=== PATIENT | female | born 1935 | race Caucasian/White ===

== ENCOUNTER 2019-07-19 20:08 | Inpatient (IN) | payer MEDICARE ==
[~2019-07-19] VITALS: Ht 167.6 cm; Wt 79.4 kg
[~2019-07-19 20:08] MED LIST: ALENDRONATE SOD70 MG PO; AMIODARONE HCL200 MG PO; ASPIR 8181 MG PO; BIOTIN PO; CALCIUM + VITA1 EACH PO; CALCIUM 500+D1 EACH PO; CO Q-10100 MG PO; HYDROCHLOROTHIA25 MG PO; KLOR CON PO; KLOR-CON 1010 MEQ PO; LISINOPRIL10 MG PO; LOVASTATIN20 MG PO; METOPROLOL SUCC25 MG PO; MULTI-VITAMIN1 EACH PO; OSTEO BI-FLEX1 EAC2 PO; VERAPAMIL ER120 MG PO; VIT C PO; VIT D3 PO; VIT E PO; VITAMIN C500 MG PO; VITAMIN D31000 UNIT PO; VITAMIN E400 UNI1 PO; XARELTO10 MG PO; ZESTRIL10 MG PO
--- OUTSIDE RECORDS SUMMARY | 2019-07-19 20:14 | XMS REPORT | Summary of Care ---
Author Author [facility] Organization [facility] Address Unknown Phone Unavailable Encounter HQ Encntr_alias(FIN) [id number] Date(s): 03/10/17 - 03/10/17 [facility] [address] [place] [address]- Discharge Disposition: Home or Self Care Attending Physician: Melva Coles MD Referring Physician: Melva Coles MD Vital Signs No data available for this section Problem List No data available for this section Allergies, Adverse Reactions, Alerts No data available for this section Medications No data available for this section Results No data available for this section Immunizations No data available for this section Procedures No data available for this section Social History No data available for this section Assessment and Plan No data available for this section
--- OUTSIDE RECORDS SUMMARY | 2019-07-19 20:14 | XMS REPORT | Summary of Care ---
Author Author [facility] [place] Organization [facility] [place] Address Unknown Phone Unavailable Encounter HQ Encntr_alias(FIN) [id number] Date(s): 01/02/16 - 01/02/16 [facility] [place] [address] [id number] [phone] Discharge Disposition: Home Attending Physician: Melva Coles MD Vital Signs No [...]
--- OUTSIDE RECORDS SUMMARY | 2019-07-19 20:14 | XMS REPORT | Summary of Care ---
Author Author [facility] [place] Organization [facility] [place] Address Unknown Phone Unavailable Encounter HQ Encntr_alias(FIN) [id number] Date(s): 02/23/17 - 02/23/[address] [facility] [place] [address] [place] [phone] Discharge Disposition: Home or Self Care Attending Physician: Melva Coles MD Vital Signs [...]
--- OUTSIDE RECORDS SUMMARY | 2019-07-19 20:14 | XMS REPORT | Summary of Care ---
Author Author [facility] Outpatient Imaging [facility]patient [facility] Address Unknown Phone Unavailable Encounter HQ Encntr_alias(FIN) [id number] Date(s): 01/02/16 - 01/02/16 [facility] Outpatient Imaging [facility] [address] [facility], [address] [phone] Discharge Disposition: Home Attending Physician: Melva Coles [...]
--- OUTSIDE RECORDS SUMMARY | 2019-07-19 20:14 | XMS REPORT | Continuity of Care Document ---
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 Phone CYBRA Information [employer] Unavailable Unavailable Problems Problem Status Onset Date Classification Date Reported Comments Source Radiculopathy, lumbar region 11/30/2018 06/11/2019 [facility] [place] Dorsalgia, unspecified 10/10/2018 04/22/2019 [facility] [place] DX: I48.91=UNSPECIFIED ATRIAL FIBRILLATI Active 03/01/2017 [facility] R10.12 - LEFT UPPER QUADRANT PAIN Active 12/26/2015 [facility] [employer] V82.81 - SCREEN - OSTEOP Active 12/24/2014 [facility] [place] Spinal stenosis, lumbar region with neurogenic claudication 06/11/2019 [facility] [place] Other intervertebral disc disorders, lumbosacral region 06/11/2019 [facility] [place] Pathological fracture, other site, initial encounter for fracture 06/11/2019 [facility] [place] Pain in right hip 04/22/2019 [facility] [place] Pain in left hip 04/22/2019 [facility] [place] Other spondylosis, lumbar region 04/22/2019 [facility] [place] UNSPECIFIED ATRIAL FIBRILLATION Active [facility] Medications No Data Provided for This Section Allergies, Adverse Reactions, Alerts No Known Medication Allergies Immunizations No Data Provided for This Section Results No Data Provided for This Section Pathology Reports No Data Provided for This Section Diagnostic Reports Report Value Date Source Spine lumbar w/wo contrast MRI EXAM: MRI LUMBAR SPINE WITHOUT AND WITH CONTRAST DATE: 11/21/2018 14:29 [employer] . ORDERING PHYSICIAN: Melva Coles MD CLINICAL INDICATION: BACK PAIN, RADICULOPATHY - BACK PAIN, RADICULOPATHY; TECHNIQUE: Multiplanar, multisequence MRI lumbar spine performed both prior to and after uncomplicated IV administration of weight based Dotarem. COMPARISON: Unavailable FINDINGS: INTRASPINAL CONTENTS/CONUS: The conus terminates at L1-L2. No definite dural based lesion. VERTEBRAE: The vertebrae are normal in height there is 15 degrees levoconvex curvature with apex at L2-L3. There are nondisplaced subacute fracture in the sacrum bilaterally. PARASPINAL SOFT TISSUES: No edema or definite masses. No aortic aneurysm. ENHANCEMENT: There is no abnormal enhancement DISC SPACES, SPINAL CANAL, AND NEURAL FORAMINA: T12-L1. Intervertebral disc height and signal are maintained. Posterior elements are normal. There is no stenosis. L1-L2. The disc is dehydrated without height loss. There is a central annular fissure. Posterior elements are normal. There is no stenosis. L2-L3. Dehydrated disc with shallow diffuse bulge and annular fissuring. There is bilateral facet hypertrophy. Central canal measures 12 mm the lateral recesses and neural foramina are patent. L3-L4. Loss of disc height with diffuse bulge and annular fissuring. There is bilateral facet hypertrophy with ligamentous redundancy. Central canal measures 9 mm. Disc narrows lateral recesses contacting the traversing L4 nerve roots. Disc and facets mildly narrow the neural foramina but cause no descending L3 nerve roots. L4-L5. Desiccated disc with circumferential disc osteophyte complex asymmetric to the right. There is bilateral facet hypertrophy with ligamentous redundancy. Central canal measures 7 mm without cauda equina mass effect. Disc and facets narrow the lateral recesses contacting the traversing L5 nerve bilaterally. Disc and facets moderately narrow the right neural foramen contacting the exiting L4 nerve root. Left neural foramen is mildly narrowed with no contact. L5-S1. Desiccated disc with circumferential disc osteophyte complex. There is bilateral facet hypertrophy with ligamentous redundancy. Central canal measures 11 mm the lateral recesses are mildly narrowed without traversing S1 nerve root mass effect. Disc and facets moderately narrow the right neural foramen contacting the exiting right L5 nerve. IMPRESSION: 1. Mild L3-L4 and L4-L5 spinal stenosis without mass effect on the cauda equina 2. Potential exiting nerve root impingement on the right at L4-L5 and L5-S1 3. Nondisplaced, subacute bilateral sacral insufficiency fractures, which are amenable to augmentation by interventional radiology. 11/21/2018 [facility] Hip bilat w pelvis and both lat hips DX Exam: Hip bilat w pelvis and both lat hips DX Reason for Exam: - pain lumbar area; back and hip pain Comparison Exam: None Discussion: No acute bony abnormalities identified. SI joints and pubic symphysis are unremarkable. Femoral acetabular joints are intact. No evidence for avascular necrosis involving the femoral heads. No suspicious osteoblastic or osteolytic lesions seen to suggest pathologic involvement. Impression: 1. No acute bony abnormalities identified. 10/02/2018 [facility] Spine lumbar series DX Exam: Spine lumbar series DX Reason for Exam: - pain lumbar area; back and hip pain Comparison Exam: None Discussion: 5 non rib-bearing lumbar vertebral bodies are seen. Vertebral body heights are maintained. No spondylolisthesis nor scoliosis. Moderate degenerative changes seen at the level of the lower lumbar spine. Moderate amount of atherosclerotic plaque seen within the abdominal aorta. No suspicious osteoblastic or osteolytic lesions. Note that a lumbar spine x-ray cannot rule out ligamentous injuries or spinal cord abnormalities. No dilated loops of bowel within the visualized portions of the abdomen and pelvis. Impression: 1. Vertebral body heights are maintained. No spondylolisthesis nor scoliosis. Moderate degenerative changes seen at the level of the lower lumbar spine. 10/02/2018 [facility] Stereo Breast BX Uni /Clip Primary SD MA - STEREO BREAST BX UNI /CLIP PRIMARY SD MA/L STEREOTACTIC GUIDED BIOPSY LEFT BREAST USING VACUUM DEVICE WITH MARKING DEVICE INSERTED AND POST DIGITAL MAMMOGRAPHIC IMAGING AND RADIOGRAPHIC SPECIMEN IMAGING- POST-PROCEDURE IMAGING FOR MARKER PLACEMENT: 03/10/2017 CLINICAL: Left Breast Calcifications. Correlation is made to exams dated: 02/23/2017 mammogram, 02/04/2017 mammogram, 01/02/2016 mammogram, 01/02/2015 mammogram - [facility], 12/24/2014 mammogram and 12/18/2013 mammogram - [facility]. A stereotactic guided biopsy was performed for the 4 cm area of clustered calcifications located in the left breast at 2 o'clock posterior depth. This was described on the previous mammography report. The skin was prepped in the usual manner. Local anesthetic was administered to the access site. A skin lucy was made in the breast. The abnormality was approached from the lateral aspect using an upright digital mammography unit. A 9 gauge biopsy needle was placed adjacent to the abnormality under computer guidance and confirmatory stereotactic mammography images were obtained to document needle placement. Once the needle was documented to be in the correct location, multiple specimens were obtained using the Wugly system. A clip was inserted into the biopsy cavity. A sterile dressing was applied to the access site. Post procedure digital mammographic imaging demonstrates the clip at the targeted area and partial removal of the calcifications. The specimens were sent to the laboratory for pathological analysis. IMPRESSION: STEREOTACTIC GUIDED BIOPSY MALIGNANT Stereotactic guided biopsy of the 4 cm area of clustered calcifications in the left breast at 2 o'clock posterior depth was successful with no apparent post procedure complications. The imaged specimens includes the calcifications. Pathology indicates malignant results - 'DUCTAL CARCINOMA IN-SITU, NUCLEAR GRADE 1-2, CRIBRIFORM TYPE WITH COMEDO NECROSIS AND CALCIFICATIONS'. Pathology results are concordant with imaging findings. A surgical consult, a surgical excision and a medical oncology consultation are recommended. A phone call was made to the physician's nurse Jeff of the above results at 1410 hrs 03/14/17. Lucas Palencia M.D. ap/:03/14/2017 14:15:11 Distribution Designer: Kiersten Falcon, [facility] This exam was dictated and interpreted by [id number] for [facility]. 03/10/2017 [facility] Mammo Diag UNI incl CAD MA - BREAST MAMMO DIAG UNI INCL CAD MA/L UNILATERAL LEFT DIGITAL DIAGNOSTIC MAMMOGRAM WITH CAD: 02/23/2017 CLINICAL: Calcium Deposit. Current study was evaluated with a Computer Aided Detection (CAD) system. Comparison is made to exams dated: 02/04/2017 mammogram, 01/02/2016 mammogram, 01/02/2015 mammogram - [facility], 12/24/2014 mammogram, 12/18/2013 mammogram and 12/14/2012 mammogram - [facility]. The tissue of the left breast is heterogeneously dense, which could obscure detection of small masses. Scattered calcifications and benign appearing vascular calcifications are present in the left breast. There are 4.2 cm x 1.3 cm x 0.9 cm linear pleomorphic calcifications in the left breast at 2 o'clock posterior depth 7 cm from the nipple. No other significant masses or calcifications are seen in the breast. IMPRESSION: SUSPICIOUS OF MALIGNANCY The 4.2 cm x 1.3 cm x 0.9 cm linear pleomorphic calcifications in the left breast are suspicious of malignancy. A stereotactic biopsy is recommended. These results were discussed with the patient. Professional services are provided by the [facility]. Hiren Mcrae M.D. cm/:02/23/2017 15:38:09 Distribution Designer: Addis Coronel RT(R)(M), [facility] This exam was dictated and interpreted by [id number] for [facility]. letter sent: Biopsy Mammogram BI-RADS: 4 Suspicious abnormality 02/23/2017 [facility] Breast Mammo Scrn RAFY incl CAD MA - BREAST MAMMO SCRN RAFY INCL CAD MA BILATERAL DIGITAL SCREENING MAMMOGRAM WITH CAD: 02/04/2017 CLINICAL: Breast Cancer Screening. Current study was evaluated with a Computer Aided Detection (CAD) system. Comparison is made to exams dated: 01/02/2016 mammogram, 01/02/2015 mammogram - [facility], 12/24/2014 mammogram, 12/18/2013 mammogram, 12/14/2012 mammogram and 12/17/2010 mammogram - [facility]. The tissue of both breasts is heterogeneously dense, which could obscure detection of small masses. Scattered calcifications and benign appearing vascular calcifications are present in both breasts. There is evidence of post surgical and radiation changes associated with the right breast. There is a 2 cm area of grouped calcifications in the left breast at 2 o'clock posterior depth. No other significant masses, calcifications, or other findings are seen in either breast. IMPRESSION: INCOMPLETE: NEEDS ADDITIONAL IMAGING EVALUATION The 2 cm area of grouped calcifications in the left breast are indeterminate. Additional views with possible ultrasound are recommended. SUMMARY: The staff of [facility] with [facility] [place][note 2] will contact the referring physician for orders and then contact the patient to schedule the additional studies. A supplemental report will be issued following interpretation of the additional studies. Professional services are provided by the [facility]. Genevieve rubin/jn:02/08/2017 08:46:04 Distribution Designer: Priscilla Waterman RT(R)(M), [facility] This exam was dictated and interpreted by [id number] for KENDRA Santillan. letter sent: Additional Imaging Mammogram BI-RADS: 0 Indeterminate 02/04/2017 [facility] Shoulder wo contrast MRI EXAMINATION: MR left shoulder without contrast HISTORY: M77.9 Enthesopathy, unspecified; left shoulder pain; left glenoid labral tear; left subacromial subdeltoid bursitis FINDINGS: Radiographs dated 03/04/2016 are reviewed. Multiplanar, multisequence magnetic resonance imaging of the left shoulder is performed with a local coil. Transverse, oblique coronal, and oblique sagittal images are obtained. Biceps: The long head of biceps remains attached at the superior bicipital labral complex without dislocation or subluxation. Labrum: There is near circumferential tearing of the glenoid labrum. Rotator cuff tendons: There is a moderate grade, partial-thickness, bursal sided tear at the footprint of the supraspinatus tendon measuring approximately 1.4 cm in anteroposterior dimension and involving a maximum of 50% of the tendon thickness at the footprint. The articular sided fibers remain intact without full-thickness tear or tendinous retraction. There is underlying moderate to severe supraspinatus and mild infraspinatus tendinopathy. The infraspinatus, teres minor, and subscapularis tendons are intact. Acromio-osseous outlet: There is a type II acromion without a subacromial spur. The coracoacromial and coracoclavicular ligaments are intact. Muscles: There is normal signal intensity and muscle bulk of the rotator cuff musculature. Cartilage: There is mild degenerative arthrosis of the acromioclavicular joint. There is also mild left glenohumeral osteoarthrosis with deep partial thickness chondrosis along the superior glenoid and matching medial humeral head. Bone: There are no fractures. Nonspecific enthesopathic subcortical cyst formation is noted along the posterolateral humeral head. Soft tissue: There is a small amount of fluid in the subacromial-subdeltoid bursa. There is a large glenohumeral joint effusion with scattered synovitis. IMPRESSION: 1. Moderate grade, partial-thickness, bursal sided tear at the footprint of the left supraspinatus tendon measuring approximately 1.4 cm in anteroposterior dimension and involving a maximum of 50% of the tendon thickness. There is underlying moderate to severe left supraspinatus and mild left infraspinatus tendinopathy, but no full-thickness tear, tendinous retraction, or rotator cuff muscular atrophy. 2. Mild left glenohumeral osteoarthrosis with deep partial thickness chondrosis along the superior glenoid and matching medial humeral head, as well as, near circumferential degenerative tearing of the left glenoid labrum. 3. Large left glenohumeral joint effusion with scattered synovitis. 4. Mild left acromioclavicular degenerative arthrosis. 5. Mild left subacromial subdeltoid bursitis. [facility] [place] CLINICAL HISTORY: left shoulder pain AGE: 80 years GENDER: Female TECHNIQUE: Left shoulder radiographs, 3 views. COMPARISON: None FINDINGS: There is no evidence of fracture or dislocation. Osseous mineralization is within normal limits. No lytic or blastic lesions are seen. There is mild to moderate degenerative change in the acromioclavicular joint. IMPRESSION: Mild to moderate degenerative changes of the acromioclavicular joint.. 03/04/2016 [facility] [place] Digital Mammo Screening Rafy MA - DIGITAL MAMMO SCREENING RAFY MA BILATERAL DIGITAL SCREENING MAMMOGRAM WITH CAD: 01/02/2016 CLINICAL: Routine. Current study was evaluated with a Computer Aided Detection (CAD) system. Comparison is made to exams dated: 01/02/2015 mammogram - [facility], 12/24/2014 mammogram, 12/18/2013 mammogram, 12/14/2012 mammogram, 12/17/2010 mammogram and 04/24/2009 mammogram - [facility]. The tissue of both breasts is heterogeneously dense, which could obscure detection of small masses. There is evidence of post surgical and radiation changes associated with the right breast. No significant masses, calcifications, or other findings are seen in either breast. IMPRESSION: BENIGN There is no mammographic evidence of malignancy. A 1 year screening mammogram is recommended. Dr. Aman Amanda M.D. eoc/penrad:01/06/2016 14:05:13 Distribution Designer: Addis HARDIN(R)(M), [facility] This exam was dictated and interpreted by [id number] at [facility]. letter sent: Normal exam Mammogram BI-RADS: 2 Benign [facility]/02/[facility] [place] [facility] 2 views DX CHEST PA AND LATERAL History: 80-year-old female with a lung nodule. Comparison: 12/24/2014 Findings: The lungs are expanded and no infiltrate, mass or pleural effusion seen. Cardiomediastinal structures are within normal limits. Healed right rib fracture is again seen. IMPRESSION: There is no acute cardio pulmonary abnormality. 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 Axial, sagittal and coronal reconstructions. IV contrast: None. DLP: 331 mGy-cm COMPARISON: None available. FINDINGS: Lower Neck: The thyroid gland is mildly heterogenous. Heart, mediastinum and great Vessels: Mild cardiomegaly with dilated left atrium measuring up to 5 cm in the AP dimension. Diffuse atherosclerotic calcifications of the thoracic aorta. The ascending thoracic aorta measures 4 cm. The main pulmonary trunk measures 2.8 cm. There is no pathologic intrathoracic lymphadenopathy, with limited evaluation of the hilar structures, due to lack of intravenous contrast. Lungs and Pleura: Senescent changes of the tracheobronchial tree. Several pulmonary nodules are again seen as follows: Left lower lobe measuring 7 mm on axial image 193, left lower lobe measuring 5 mm on axial image 198, right lower lobe measuring 4 mm on axial image 140. Left intrafissural lymph node on axial image 131. Tangential right upper lobe postradiation changes are present. Right lower lobe periosteophyte scarring. Bilateral lower lobe and lingular subsegmental atelectasis versus scarring. No pleural effusion or pneumothorax. Bones and Soft Tissues: Bilateral breast vascular calcifications are present. Degenerative changes predominantly of the upper thoracic spine. There is diffuse osteopenia. No suspicious lytic or blastic lesions are present. Bone island T8 vertebral body. Healed right 9th and 10th rib fractures. Upper abdomen: Bilateral nonobstructive nephrolithiasis are present. Atherosclerotic calcifications of the abdominal aorta and branches. Stable large right hepatic lobe cyst measuring 5 x 4 cm. IMPRESSION: 1. Stable pulmonary nodules measuring up to 7 mm since December 2013. 2. Tangential postradiation changes in the right upper lobe. 3. Mild cardiomegaly with dilated left atrium. 4. 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 5. Stable right hepatic lobe cyst. 6. Bilateral nonobstructive nephrolithiasis. 01/02/2016 [facility] Chest w/wo contrast CT CHEST CT CLINICAL HISTORY: Lung nodule and a remote history of breast cancer. TECHNIQUE: Pre- and post-IV contrast volumetric CT displayed in multiplanar reconstructions. DLP is 497 mGy-cm. COMPARISON IMAGIN12/25/2012 CT. FINDINGS: Mediastinum: Visualized lymph nodes are within normal limits for CT size criteria. Both atria remain dilated. Reflux of contrast from the right atrium into the IVC and hepatic veins is again noted. The hiatal hernia now appears small. No acute aortic abnormality, pericardial effusion or mediastinal mass. Upper Abdomen: The 4.1 cm septated low-density lesion in hepatic segment 7 is stable. Again, a cyst is favored. Remaining visualized segments of the abdominal organs are unremarkable. Lungs: Pleura is unremarkable. Radiation changes in the anterior right lung are again noted. The previously seen tiny indeterminate nodules in both lower lobes are stable. They are noted on series 3; images 42, 50, 63, and 66. The largest again measures 7 mm (LLL, image 63). No new nodularity, significant interstitial thickening, or consolidation is identified. Scarring in the lingula persists. Bones: Healed right ninth and tenth rib fractures. No suspicious bone lesion is seen. IMPRESSION: 1. Stable bilateral pulmonary nodules. Repeat chest CT in one year is recommended for followup. 2. Stable liver lesion suggestive of a cyst. 12/24/2013 [facility] Chest 2 views HISTORY: Hypertension TECHNIQUE: Two views of the chest COMPARISON: Chest x-ray of 12/14/2012. Chest CT of 09/24/2013 FINDINGS: Mild cardiomegaly is unchanged. Pulmonary vasculature is normal in caliber. No acute infiltrate or effusion. 2.1 cm nodular density overlying the posterior and right ninth rib is unchanged. Punctate nodules seen on previous CT are not well visualized on this exam. No acute osseous abnormalities. IMPRESSION: Stable mild cardiomegaly and 2.1 cm nodule in the right lower lung. No significant interval change compared to previous chest x-ray of 12/14/2012. 12/18/2013 [facility] Digital Mammo Screening Rafy MA - DIGITAL MAMMO SCREENING RAFY MA BILATERAL DIGITAL SCREENING MAMMOGRAM WITH CAD: 12/18/2013 CLINICAL: Routine. Current study was evaluated with a Computer Aided Detection (CAD) system. Comparison is made to exam dated: 04/24/2009 mammogram - [facility]. The tissue of both breasts is heterogeneously dense, which could obscure detection of small masses. There is evidence of post surgical and radiation changes associated with the right breast. No significant masses, calcifications, or other findings are seen in either breast. IMPRESSION: BENIGN There is no mammographic evidence of malignancy. A screening mammogram in one year is recommended. Dr. Aman Amanda M.D. eoc/penrad:12/18/2013 11:49:16 Distribution Designer: TEODORA CORTEZ, [facility] This exam was dictated and interpreted by [id number] for Jovan Santillan. letter sent: Normal exam Mammogram BI-RADS: 2 Benign [facility]18[facility] [place] Consultation Notes No Data Provided for This Section Discharge Summaries No Data Provided for This Section History and Physicals No Data Provided for This Section Vital Signs No Data Provided for This Section Encounters Location Location Details Encounter Type Encounter Number Reason For Visit Attending Provider ADM Date DC Date Status Source [facility] [place] [facility] [id number] Melva Sanket 01/02/2015 01/03/2015 [facility] [place] [facility] [place] [facility] [id number] Melva Saknet 01/02/2016 [facility] [place] [facility] [id number] Melva Sanekt 01/02/2016 01/03/2016 [facility] [place] [facility] [place] [facility] [id number] Melva Sanket 03/04/2016 03/05/2016 [facility] [place] [facility] [place] [facility] [id number] Melva Sanket 02/04/2017 02/05/2017 [facility] [place] [facility] [place] [facility] [id number] Melva Sanket 02/23/2017 02/24/2017 [facility] [place] [facility] Outpatient [id number] Melva Sanket 03/10/2017 03/11/2017 [facility] [place] [facility] [id number] Melva Sanket 10/02/2018 10/03/2018 [facility] [place] [facility] [place] [facility] [id number] Melva Sanket 11/21/2018 11/22/2018 [facility] [place] Procedures No Data Provided for This Section Assessment and Plan No Data Provided for This Section Plan of Care No Data Provided for This Section Social History Social History Date Source No data available for this section 11/22/2018 [facility] [place] No data available for this section 03/11/2017 [place] No data available for this section 01/03/2016 [facility] [place] Family History No Data Provided for This Section Advance Directives No Data Provided for This Section Functional Status No Data Provided for This Section
--- OUTSIDE RECORDS SUMMARY | 2019-07-19 20:14 | XMS REPORT | Summary of Care ---
Author Author [facility] [place] Organization [facility] [place] Address Unknown Phone Unavailable Encounter HQ Encntr_alias(FIN) [id number] Date(s): 10/02/18 - 10/02/18 [facility] [place] [address] [phone] [phone] Encounter Diagnosis Dorsalgia, unspecified (Final) - 10/09/18 Pain in right hip (Final) - Pain in left hip (Final) - Other spondylosis, lumbar region (Final) - Discharge Disposition: Home or Self Care Attending [...]
--- OUTSIDE RECORDS SUMMARY | 2019-07-19 20:14 | XMS REPORT | Summary of Care ---
Author Organization Unknown Address Unknown Phone Unavailable Encounter HQ Encntr_alias([facility]) [id number] Date(s): 01/02/15 - 01/02/15 [facility] [place] [address] [place] [address] [address] [address] [phone] Discharge Disposition: Home Physician Attending: Melva Coles MD Vital Signs No data [...]
--- OUTSIDE RECORDS SUMMARY | 2019-07-19 20:14 | XMS REPORT | Summary of Care ---
Author Author [facility] [place] Organization [facility] [place] Address Unknown Phone Unavailable Encounter HQ Encntr_alias(FIN) [id number] Date(s): 03/04/16 - 03/04/16 [facility] [place] [address] [facility] [address] [phone] Discharge Disposition: Home Attending Physician: Melva Coles [...]
--- OUTSIDE RECORDS SUMMARY | 2019-07-19 20:14 | XMS REPORT | Summary of Care ---
Author Author [facility] [place] Organization [facility] [place] Address Unknown Phone Unavailable Encounter HQ Encntr_aligraham(FIN) [id number] Date(s): 11/21/18 - 11/21/18 [facility] [place] [address] [phone] [phone] Encounter Diagnosis Radiculopathy, lumbar region (Final) - 11/29/18 Spinal stenosis, lumbar region with neurogenic claudication (Final) - Other intervertebral disc disorders, lumbosacral region (Final) - Pathological fracture, other site, initial encounter for fracture (Final) - Discharge Disposition: Home or Self [...]
--- OUTSIDE RECORDS SUMMARY | 2019-07-19 20:15 | XMS REPORT ---
Author [facility] Address Unknown Phone Unavailable Care Team Providers Care Quality Control Engineering Technician Name Role Phone Unavailable Unavailable Payers Payer Name Policy Type Policy Number Effective Date Expiration Date Problems This patient has no known problems. Allergies, Adverse Reactions, Alerts Allergy Name Allergy Type Status Severity Reaction(s) Onset Date Inactive Date Treating Clinician Comments Penicillins DA Active [place] 2017-03-25 00:00:00 clindamycin DA Active MO 2017-03-25 00:00:00 Medications This patient has no known medications. Results Test Description Test Time Test Comments Text Results Atomic Results Result Comments HGB HCT 2019-02-06 04:52:00 HEMOGLOBIN (test code=HGB) 11.5 gram/dL 11.5-15.5 HEMATOCRIT (test code=HCT) 36.5 % 36.0-46.0 PLATELET [id number] 04:52:00* Test Item Value Reference Range Comments PLATELET COUNT (test code=PLT) 214 K/mm3 150-450 HGB [id number] 04:46:00* Test Item Value Reference Range Comments HEMOGLOBIN (test code=HGB) 11.5 gram/dL 11.5-15.5 HEMATOCRIT (test code=HCT) 36.5 % 36.0-46.0 PLATELET [id number] 04:46:00* Test Item Value Reference Range Comments PLATELET COUNT (test code=PLT) K/mm3 150-450 HGB [id number] 12:18:00* Test Item Value Reference Range Comments HEMOGLOBIN (test code=HGB) 10.9 gram/dL 11.5-15.5 HEMATOCRIT (test code=HCT) 34.7 % 36.0-46.0 HGB [id number] 06:59:00* Test Item Value Reference Range Comments HEMOGLOBIN (test code=HGB) 11.3 gram/dL 11.5-15.5 HEMATOCRIT (test code=HCT) 37.5 % 36.0-46.0 HGB [id number] 06:50:00* Test Item Value Reference Range Comments HEMOGLOBIN (test code=HGB) gram/dL 11.5-15.5 HEMATOCRIT (test code=HCT) 37.5 % 36.0-46.0 [id number] 03:14:00* Test Item Value Reference Range Comments TROPONIN-I (test code=TROPI) 0.039 ng/mL 0-0.045 COMMENTS TO MOBILITY ARCHITECT MANAGER: COLLECT 3 HOURS AFTER PREVIOUS [id number] 22:43:00* Test Item Value Reference Range Comments TROPONIN-I (test code=TROPI) 0.032 ng/mL 0-0.045 COMMENTS TO MOBILITY ARCHITECT MANAGER: COLLECT 3 HOURS AFTER PREVIOUS [id number] 19:34:00* Test Item Value Reference Range Comments DIGOXIN (test code=DIG) 0.3 ng/mL 0.90-2.0 NOTE: Spironolactone interference may cause a decrease inreported Digoxin results of 11-30 %. - CT ABD PELVIS [id number] 19:18:00 Name: BARBI WINN [facility] : 1935 Age/S: 83 / F [address] [facility] Unit #: [id number] Loc: [place] [address] Phys: Gagan Theodore MD Acct: [id number] Dis Date: Status: ADM IN PHONE #: [phone] Exam Date: 01/31/2019 1904 FAX #: [phone] Reason: pelvic fracture fall blood thinners EXAMS: CPT CODE: [id number] CT ABD PELVIS W/CONT 24228 REASON FOR EXAM: pelvic fracture fall blood thinners EXAM ORDER DATE: 01/31/2019 6:27 PM Ordering M.DAndrew: Gagan Theodore MD PROCEDURE: - CT ABD PELVIS W/CONT contrast-enhanced axial CT images were acquired through the abdomen/pelvis at 5 mm intervals. Sagittal and coronal reformatted images were generated. Automated exposure control was utilized for this reduction. COMPARISON: None FINDINGS: The lung bases show minimal atelectasis. No pleural or pericardial effusion is seen. The left ventricle appears hypertrophied. There is dilatation of both atria. Prior healed fractures are visualized bilaterally. A cyst is seen in the right lobe of the liver. The gallbladder appears normal. The spleen, pancreas, and adrenals appear normal. Symmetric excretion of contrast is seen from both kidneys. Nonobstructive calculi are seen at the inferior pole of both kidneys. Atherosclerotic calcifications are seen in the aorta and its branches with no evidence of occlusive disease. No adenopathy or free air is seen in the abdomen and pelvis. Sigmoid diverticulosis with no evidence of diverticulitis. No dilated bowel loops are seen. There is a right left- sided pelvic wall hematoma adjacent to the comminuted fracture of the left pubic ramus. It measures approximately 7.1 x 2.5 cm, and is best seen on series 2 image 75. There is no evidence of active extravasation. Collapsed urinary bladder appears normal. The uterus appears normal as well. A hypodense ovoid focus is seen in the perineal superficial tis sues, to the right of the midline (series 2 image 90), likely a inflammato ry skin lesion. PAGE 1 Signed Report (CONTINUED) Name: BARBI WINN [facility] : 1935 Age/S: 83 / F [address] [facility] Unit #: [id number] Loc: [place] [address] Phys: Gagan Theodore MD Acct: [id number] Dis Date: Status: ADM IN PHONE #: [phone] Exam Date: 01/31/2019 190 FAX #: [phone] Reason: pelvic fracture fall blood thinners EXAMS: CPT CODE: [id number] CT ABD PELVIS W/CONT 71038 < Continued> Degenerative changes are seen in the spine along with hemangiomas. IMPRESSION: Comminuted fracture of the left pubic ramus with adjacent intrapelvic hematoma, with no active extravasation. at 1918 Reported and signed by: Rodney Us M.D. CC: Melva Coles MD; Gagan Theodore MD Technologist:Leigh Sebastian RT(R); SUJATHA Puente CTDI: DLP: Trnscb Date/Time: 01/31/2019 (1917) [email or web address] Orig Print D/T: S: 01/31/2019 (1920) CTDI: DLP: PAGE 2 Signed Report B-TYPE NATRIURETIC PEPTIDE 2019-01-31 18:39:00* Test Item Value Reference Range Comments B-TYPE NATRIURETIC PEPTIDE (test code=BNP) 577.56 pgram/mL 0-100 BASIC METABOLIC [id number] 17:23:00* Test Item Value Reference Range Comments SODIUM (test code=NA) 140 mmol/L 136-145 POTASSIUM (test code=K) 3.5 mmol/L 3.5-5.1 CHLORIDE (test code=CL) 106.0 mmol/L 98-107 CARBON DIOXIDE (test code=CO2) 27.0 mmol/L 21-32 ANION GAP (test code=GAP) 10.5 10-20 GLUCOSE (test code=GLU) 108 mg/dL 74-106 BLOOD UREA NITROGEN (test code=BUN) 25 mg/dL 7-18 GLOMERULAR FILTRATION RATE (test code=GFR) 53 mL/min >=60 Estimated GFR by using Modified MDRD formula.Chronic kidney disease is defined as either kidney damageor GFR <60 mL/min/1.73 m2 for >3 months. CREATININE (test code=CREAT) 1.00 mg/dL 0.55-1.02 Note change in reference range due to change in reagent. BUN/CREATININE RATIO (test code=BUN/CREA) 25.0 10-20 CALCIUM (test code=CA) 8.9 mg/dL 8.5-10.1 [id number] 17:23:00* Test Item Value Reference Range Comments TROPONIN-I (test code=TROPI) 0.024 ng/mL 0-0.045 BASIC METABOLIC [id number] 17:15:00* Test Item Value Reference Range Comments SODIUM (test code=NA) 140 mmol/L 136-145 POTASSIUM (test code=K) 3.5 mmol/L 3.5-5.1 CHLORIDE (test code=CL) 106.0 mmol/L 98-107 CARBON DIOXIDE (test code=CO2) mmol/L 21-32 ANION GAP (test code=GAP) 10-20 GLUCOSE (test code=GLU) mg/dL 74-106 BLOOD UREA NITROGEN (test code=BUN) mg/dL 7-18 GLOMERULAR FILTRATION RATE (test code=GFR) mL/min >=60 CREATININE (test code=CREAT) mg/dL 0.55-1.02 BUN/CREATININE RATIO (test code=BUN/CREA) 10-20 CALCIUM (test code=CA) mg/dL 8.5-10.1 [id number] 17:15:00* Test Item Value Reference Range Comments TROPONIN-I (test code=TROPI) ng/mL 0-0.045 PROTHROMBIN [id number] 17:10:00* Test Item Value Reference Range Comments PROTHROMBIN TIME PATIENT (test code=PTP) 15.5 seconds 9.0-14.0 INTERNATIONAL NORMAL RATIO (test code=INR) 1.3 0.8-1.2 The therapeutic range for oral anticoagulant therapy formost indications is an international normalized ratio (INR)of between 2.0 and 3.0. The recommended therapeutic INRrange for various clinical situations is listed below: Clinical Situation INR range Pulmonary e mbolism treatment (2.0-3.0)Venous thrombosis treatmentVenous thrombosis prophylaxis (high risk surgery)Prevention of systemic embolism from: Acute myocardial infarction Valvular heart disease Atrial fibrillation Mechanical prosthetic heart valves (2.5-3.5) IS PATIENT ON ANTICOAGULANTS? NTHROMBOPLASTIN TIME [id number] 17:10:00* Test Item Value Reference Range Comments THROMBOPLASTIN TIME PARTIAL (test code=PTT) 31.7 seconds 25.0-36.5 IS PATIENT ON ANTICOAGULANTS? NCBC W/O [id number] 16:59:00* Test Item Value Reference Range Comments WHITE BLOOD CELL (test code=WBC) K/mm3 4.5-12.5 RED BLOOD CELL (test code=RBC) mill/mm3 3.7-5.2 HEMOGLOBIN (test code=HGB) 12.4 gram/dL 11.5-15.5 HEMATOCRIT (test code=HCT) 39.3 % 36.0-46.0 MEAN CELL VOLUME (test code=MCV) fL 80-98 MEAN CELL HGB (test code=MCH) picogram 27.0-33.0 MEAN CELL HGB CONCETRATION (test code=MCHC) gram/dL 33.0-36.0 RED CELL DISTRIBUTION WIDTH (test code=RDW) % 11.6-16.2 PLATELET COUNT (test code=PLT) K/mm3 150-450 MEAN PLATELET VOLUME (test code=MPV) fL 6.7-11.0 CBC W/O [id number] 16:59:00* Test Item Value Reference Range Comments WHITE BLOOD CELL (test code=WBC) 8.7 K/mm3 4.5-12.5 RED BLOOD CELL (test code=RBC) 4.14 mill/mm3 3.7-5.2 HEMOGLOBIN (test code=HGB) 12.4 gram/dL 11.5-15.5 HEMATOCRIT (test code=HCT) 39.3 % 36.0-46.0 MEAN CELL VOLUME (test code=MCV) 94.9 fL 80-98 MEAN CELL HGB (test code=MCH) 30.0 picogram 27.0-33.0 MEAN CELL HGB CONCETRATION (test code=MCHC) 31.6 gram/dL 33.0-36.0 RED CELL DISTRIBUTION WIDTH (test code=RDW) 15.4 % 11.6-16.2 PLATELET COUNT (test code=PLT) 185 K/mm3 150-450 MEAN PLATELET VOLUME (test code=MPV) 9.5 fL 6.7-11.0 - XR HIP W/PEL UNI 2+V [id number] 16:53:00 FAX: Melva Rievra MD [phone] [place]: B St: REG FAX: Gagan Theodore MD [phone] Name: BARBI WINN [facility] : 1935 Age/S: 83/F [address] [facility] Unit #: [id number] Loc: [place] [address] Phys: Gagan Theodore MD Acct: [id number] Dis Date: Status: REG ER PHONE #: [phone] Exam Date: 01/31/2019 1636 FAX #: [phone] Reason: leg pain EXAMS: CPT CODE: [id number] XR HIP W/PEL UNI 2+[place] [address] HISTORY: Pain. COMPARISON: None available. 2 views of the left femur and 3 views of the left hip: No acute fracture or dislocation. The hip joint is mildly narrowed. No AVN. Trabecular pattern and mineralization are normal. Symphysis is well oppo sed. SI joints are preserved. Nondisplaced fractures of the left superio r and inferior pubic rami. Right hip joint is mildly narrowed as well. T he sacrum appears unremarkable. Soft tissues are normal. The femur is wi thout fracture. The knee joint is narrowed in all 3 compartments. Articu lar surfaces are well marginated. IMPRESSION: No hip fracture. The joint is narrowed. No AVN. Nondisplaced fracture of the left superior and inferior pubic rami. The knee joint is narrow ed without fracture. Electronically Signed by Marlyn Mejía on 0 01/31/2019 at 1653 Reported and signed by: Mir Mejía M.D. CC: Melva Coles MD; Gagan Theodore MD Technologist: YAHAIRA GEORGE; RT Adalgisa(R Trnscrd Date/Time/By: 01/31/2019 (6249) : By: [email or web address] Orig Print D/T: S: (1015) PAGE 1 Signed Rep ort - XR FEMUR MIN 2 VWS [id number] 16:53:00 FAX: Melva Rivera MD [phone] [place]: B St: REG FAX: Gagan Theodore MD [phone] Name: BARBI WINN [facility] : 1935 Age/S: 83/F [address] [facility] Unit #: [id number] Loc: [place] [address] Phys: Gagan Theodore MD Acct: [id number] Dis Date: Status: REG ER PHONE #: [phone] Exam Date: 01/31/2019 1636 FAX #: [phone] Reason: leg pain EXAMS: CPT CODE: [id number] XR FEMUR MIN [address] [place] [address] HISTORY: Pain. COMPARISON: None available. 2 views of the left femur and 3 views of the left hip: No acute fracture or dislocation. The hip joint is mildly narrowed. No AVN. Trabecular pattern and mineralization are normal. Symphysis is well oppo sed. SI joints are preserved. Nondisplaced fractures of the left superio r and inferior pubic rami. Right hip joint is mildly narrowed as well. T he sacrum appears unremarkable. Soft tissues are normal. The femur is wi thout fracture. The knee joint is narrowed in all 3 compartments. Articu lar surfaces are well marginated. IMPRESSION: No hip fracture. The joint is narrowed. No AVN. Nondisplaced fracture of the left superior and inferior pubic rami. The knee joint is narrow ed without fracture. Electronically Signed by Marlyn Mejía on 0 01/31/2019 at 1653 Reported and signed by: Mir Mejía M.D. CC: Melva Coles MD; Gagan Theodore MD Technologist: YAHAIRA GEORGE; Agustín Paul, RT(R Trnscrd Date/Time/By: 01/31/2019 (718) : By: [email or web address] Orig Print D/T: S: (4674) PAGE 1 Signed Rep ort - XR CHEST 1 [id number] 16:50:00 FAX: Melva Rivera MD [phone] [place]: St: REG FAX: Gagan Theodore MD [phone] Name: BARBI WINN [facility] : 1935 Age/S: 83/F [address] [facility] Unit #: [id number] Loc: [place] [address] Phys: Gagan Theodore MD Acct: [id number] Dis Date: Status: REG ER PHONE #: [phone] Exam Date: 01/31/2019 1632 FAX #: [phone] Reason: SYNCOPE EXAMS: CPT CODE: [id number] XR CHEST 1 V 86531 HISTORY: Syncope. COMPARISON: None available. No acute infiltrates, effusion or congestion is noted. Scarring. No pneumothorax. Moderate cardiomegaly. IMPRESSION: No acute infiltrates, effusion or congestion. at 1650 Reported and signed by: Mir Mejía M.D. CC: Melva Coles MD; Gagan Theodore MD Technologist: YAHAIRA GEORGE; Agustín Paul, RT(R Trnscrd Date/Time/By: 9 (0420) : By: [email or web address] Orig Print D/T: S: 01/31/2019 (1650) PAGE 1 Signed Report - CT C-SPINE W/O [id number] 16:44:00 Name: BARBI WINN [facility] : 1935 Age/S: 83 / F [address] Unit #: [id number] Loc: [place] [address] Phys: Gagan Theodore MD Acct: [id number] Dis Date: Status: REG ER PHONE #: [phone] Exam Date: 01/31/2019 1624 FAX #: [phone] Reason: neck pai9n EXAMS: CPT CODE: [id number] CT C-SPINE W/O CONTRAST 07636 HISTORY: Syncope TECHNIQUE: Noncontrast CT of the head and cervical spine. COMPARISON: None FINDINGS: Brain: There is no evidence of midline shift or mass effect. No evidence of an acute infarct or intracranial hemorrhage. Diffuse hypoattenuation is seen in deep white matter and periventricular regions suggesting white matter microvascular disease. No evidence of hydrocephalus. The orbits show lens implants. The sinuses are aerated. The skull appears normal. Cervical spine: Degenerative changes are seen in the spine without evidence of acute fracture or dislocation. Disc space narrowing and osteophytosis is seen at levels C4-C5, C5-C6, and C6- C7. Extensive facet joint arthritis is seen at multiple levels bilaterally. The visualized soft tissues of the neck appear normal. A hypodense nodule is seen at the superior pole of the right lobe of thyr oid. The visualized lung apices are clear. IMPRESSION: No acute intracranial abnormality. Extensive white matter microvas cular disease. No evidence of acute fracture or dislocation of the cervi asher spine. Degenerative changes are seen in the cervical spine. at 1644 Reported and signed by: Rodney Us M.D. CC: Melva Coles MD; Gagan Theodore MD Technologist:RT SUSI(R) CT CTDI: DLP: Trnscb Date/Time: 01/31/2019 (571) [email or web address] Orig Print D/T: S: 01/31/2019 (2730) CTDI: DLP: PAGE 1 Signed Report - CT HEAD/BRAIN W/O [id number] 16:44:00 Name: BARBI WINN [facility] : 1935 Age/S: 83 / F [address] Unit #: [id number] Loc: [place] [address] Phys: Gagan Theodore MD Acct: [id number] Dis Date: Status: REG ER PHONE #: [phone] Exam Date: 01/31/2019 1624 FAX #: [phone] Reason: Syncope EXAMS: CPT CODE: [id number] CT HEAD/BRAIN W/O CONT 89115 HISTORY: Syncope TECHNIQUE: Noncontrast CT of the head and cervical spine. COMPARISON: None FINDINGS: Brain: There is no evidence of midline shift or mass effect. No evidence of an acute infarct or intracranial hemorrhage. Diffuse hypoattenuation is seen in deep white matter and periventricular regions suggesting white matter microvascular disease. No evidence of hydrocephalus. The orbits show lens implants. The sinuses are aerated. The skull appears normal. Cervical spine: Degenerative changes are seen in the spine without evidence of acute fracture or dislocation. Disc space narrowing and osteophytosis is seen at levels C4-C5, C5-C6, and C6- C7. Extensive facet joint arthritis is seen at multiple levels bilaterally. The visualized soft tissues of the neck appear normal. A hypodense nodule is seen at the superior pole of the right lobe of thyr oid. The visualized lung apices are clear. IMPRESSION: No acute intracranial abnormality. Extensive white matter microvas cular disease. No evidence of acute fracture or dislocation of the cervi asher spine. Degenerative changes are seen in the cervical spine. at 1644 Reported and signed by: Rodney Us M.D. CC: Melva Coles MD; Gagan Theodore MD Technologist:RT SUSI(R) CT CTDI: DLP: Trnscb Date/Time: 01/31/2019 (164) [email or web address] Orig Print D/T: S: 01/31/2019 (6896) CTDI: DLP: PAGE 1 Signed Report
[2019-07-19] MEDS ORDERED: ACETAMINOPHEN 1000 MG/100 ML IV ONE (20:17)
[2019-07-19] MEDS ORDERED: ACETAMINOPHEN 1000 MG/100 ML 100 ML IV ONE (20:25)
[2019-07-19] MEDS ORDERED: CEFEPIME 2 GM/NS 0.9% 100 ML 100 ML IV ONE (20:30)
[2019-07-19] MEDS ORDERED: SODIUM CHLORIDE 0.9% 1000ML 1,000 ML IV SCH ×2 (20:30)
[2019-07-19] MEDS ORDERED: SODIUM CHLORIDE 0.9% 1000ML 1,000 ML IV ONE (20:30)
[2019-07-19 20:39] LABS: BILIRUBIN,URINE NEGATIVE (NEGATIVE); CLARITY,URINE SL CLOUDY (CLEAR); COLOR,URINE YELLOW (YELLOW); KETONES,URINE TRACE (NEGATIVE); LEUKOCYTE ESTERASE ,URINE NEGATIVE (NEGATIVE); NITRITE,URINE POSITIVE (NEGATIVE); PROTEIN,URINE DIPSTICK 1+ (NEGATIVE); URINE UROBILINOGEN 0.2 mg/dL (0.2 - 1)
[2019-07-19] MEDS ORDERED: HYDROCHLOROTHIA25 MG PO (20:41)
[2019-07-19] MEDS ORDERED: METOPROLOL TART50 MG PO (20:42)
[2019-07-19] MEDS ORDERED: POTASSIUM CHLO20 ME1 PO (20:42)
[2019-07-19] MEDS ORDERED: DIGOXIN125 MCG PO (20:43)
[2019-07-19] MEDS ORDERED: MELOXICAM7.5 MG PO (20:43)
[2019-07-19] MEDS ORDERED: LOVASTATIN20 MG PO (20:43)
[2019-07-19 20:44] LABS: BASOPHILS % 0.2 % (0.0-1.0); EOSINOPHILS # (AUTO) 0.1 (0.0-0.4); EOSINOPHILS % 0.6 % (0.0-6.0); HEMATOCRIT 39.1 % (34.2-44.1); HEMOGLOBIN 12.6 g/dL (12.0-16.0); LYMPHOCYTES # (AUTO) 0.4 (1.0-3.2); MEAN CORPUSCULAR HEMOGLOBIN 29.5 pg (28-32); MEAN CORPUSCULAR HGB CONC 32.2 g/dL (31-35); MEAN CORPUSCULAR VOLUME 91.6 fL (81-99); MONOCYTES # (AUTO) 0.2 (0.2-0.8); MONOCYTES % 1.9 % (4.4-11.3); NEUTROPHILS # (AUTO) 10.9 (2.1-6.9); NEUTROPHILS % 92.9 % (38.7-80.0); PLATELET COUNT 122 x10e3/uL (140-360); RED BLOOD COUNT 4.27 x10e6/uL (3.6-5.1); RED CELL DISTRIBUTION WIDTH 15.6 % (11.7-14.4)
[2019-07-19] MEDS ORDERED: XARELTO10 MG PO (20:44)
[2019-07-19] MEDS ORDERED: ISOSORBIDE MONO30 MG PO (20:44)
[2019-07-19 20:51] LABS: BACTERIA,URINE MANY /HPF; INR 1.35; PROTHROMBIN TIME 17.3 seconds (11.9-14.5); RBC,URINE 0-5 /HPF (0-5); WBC,URINE (MAN) 0-5 /HPF (0-5)
[2019-07-19 20:52] LABS: PARTIAL THROMBOPLASTIN TIME 28.9 seconds (23.8-35.5)
[2019-07-19 21:01] LABS: ALBUMIN 3.2 g/dL (3.5-5.0); AMYLASE 31 U/L (25-125); ANION GAP 17.5 mmol/L (8-16); CALCIUM 9.5 mg/dL (8.4-10.2); CREATININE, SERUM 1.75 mg/dL (0.57-1.11); LIPASE 14 U/L (8-78)
[2019-07-19 21:03] LABS: POTASSIUM 2.5 mmol/L (3.5-5.1)
[2019-07-19 21:09] LABS: B-TYPE NATRIURETIC PEPTIDE2 2420.1 pg/mL (0-100)
[2019-07-19] MEDS ORDERED: KCL 20MEQ/.9 SOD CHL 1,000 ML IV SCH (21:15)
[2019-07-19 21:21] LABS: THYROID STIMULATING HORMONE 1.268 uIU/mL (0.350-4.940)
[2019-07-19] MEDS ORDERED: POTASSIUM CHLORIDE 20MEQ/100ML 100 ML IV ONE (21:30)
[2019-07-19 21:37] LABS: BAND NEUTROPHILS % (MANUAL) 1 %; LYMPHOCYTES % (MANUAL) 9 % (19-48); METAMYELOCYTES % (MANUAL) 1 % (0-0); MONOCYTES % (MANUAL) 3 % (3.4-9.0); NEUTROPHILS % (MANUAL) 80 % (40-74); PLATELET ESTIMATE ADEQUATE; PLATELET MORPHOLOGY COMMENT NORMAL; RBC MORPHOLOGY COMMENT NORMAL
--- NOTE | 2019-07-19 22:10 | Diagnostic Imaging Report ---
History:AMS, fever Comparison studies:None Technique: Axial images were obtained from the skull base to the vertex. Coronal and sagittal images reconstructed from the axial data. Intravenous contrast: None Dose modulation, iterative reconstruction, and/or weight based adjustment of the mA/kV was utilized to reduce the radiation dose to as low as reasonably achievable. Findings: Scalp/skull: No abnormalities. 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 No fluid collections. Brain sulci: Mildly prominent. Ventricles: Mild compensatory dilatation. No hydrocephalus. Parenchyma: Scattered and confluent hypodensities in the supratentorial white matter are small vessel ischemic changes. No masses, hemorrhage, acute or chronic cortical vascular insults. Sellar/suprasellar region: No abnormalities. Craniocervical junction: Patent foramen magnum. No Chiari one malformation. Incidental findings: Atherosclerotic calcifications in the carotid siphons and vertebral arteries . Bilateral cataract surgery changes Impression: No acute abnormalities. Chronic findings: 1. Mild generalized volume loss. 2. Moderate supratentorial white matter small vessel ischemic changes. Signed by: DR Jan Ferrell M.D. on 07/19/2019 10:06 PM
[2019-07-19] MEDS ORDERED: DIGOXIN INJ 0.25 MG/ML 2 ML AMP IV ONE (22:15)
--- NOTE | 2019-07-19 22:54 | Diagnostic Imaging Report ---
EXAM: CT Abdomen and Pelvis WITHOUT contrast INDICATION: Fever, altered mental status COMPARISON: None. TECHNIQUE: Abdomen and pelvis were scanned utilizing a multidetector helical scanner from the lung base to the pubic symphysis without administration of IV contrast. Absence of intravenous contrast decreases sensitivity for detection of focal lesions and vascular pathology. Coronal and sagittal reformations were obtained. Routine protocol was performed. IV CONTRAST: None ORAL CONTRAST: None COMPLICATIONS: None RADIATION DOSE: Total DLP: 2559 mGy*cm Estimated effective dose: (DLP x 0.015 x size factor) mSv CTDIvol has been reviewed. It is below the limits set by the Radiation Protocol Committee (RPC). Dose modulation, iterative reconstruction, and/or weight based adjustment of the mA/kV was utilized to reduce the radiation dose to as low as reasonably achievable. FINDINGS: LINES and TUBES: None. LOWER THORAX: Cardiomegaly. HEPATOBILIARY: A 4.2 cm cyst in the superomedial aspect of the right hepatic lobe. No biliary ductal dilation. GALLBLADDER: No radio-opaque stones or sludge. No wall thickening. SPLEEN: No splenomegaly. PANCREAS: No focal masses or ductal dilatation. ADRENALS: No adrenal nodules KIDNEYS/URETERS: A 0.8 cm obstructive calculus in the left ureteropelvic junction with mild-moderate left hydronephrosis. Bilateral perinephric fat stranding, left greater than right. A few nephrolithiasis in the right renal interpolar and inferior pole minor calyces measure up to 0.7 cm. No renal masses. GI TRACT: No abnormal distention, or evidence of bowel obstruction. Loss of haustrations of the transverse and descending colon. Numerous diverticula in the sigmoid colon. Moderate volume of stool in the rectum Appendix is not clearly identified. There is however no fat stranding or adenopathy in the right lower quadrant to suggest appendicitis. PELVIC ORGANS/BLADDER: Unremarkable. LYMPH NODES: No lymphadenopathy. VESSELS: There is mild atherosclerotic disease in the aorta and major arterial branches. PERITONEUM / RETROPERITONEUM: No free air or fluid. BONES: There are degenerative changes in the lumbar spine. Healed nondisplaced left lower lateral rib fractures. Decreased bone mineral density. Healed left inferior pubic ramus fracture and left pubic body fracture. Degenerative changes in the pelvis and hips. SOFT TISSUES: Unremarkable. IMPRESSION: 1. An 8 mm obstructive calculus in the left ureteropelvic junction with upstream mild-moderate left hydronephrosis. 2. Additional nonobstructive bilateral renal calculi. 3. Cardiomegaly. Signed by: Walt Santizo DO on 07/19/2019 10:51 PM
--- NOTE | 2019-07-19 23:05 | NUR ---
CONSENT OBTAINED FOR CENTRAL LINE PLACEMENT
--- NOTE | 2019-07-19 23:09 | Diagnostic Imaging Report ---
EXAMINATION: CHEST SINGLE (PORTABLE) INDICATION: Fever, altered mental status COMPARISON: Abdominal CT 07/19/2019 FINDINGS: AP view TUBES and LINES: None. LUNGS: Lungs are well inflated. Lungs are clear. Central pulmonary vascular prominence. PLEURA: No pleural effusion or pneumothorax. HEART AND MEDIASTINUM: Cardiac size is mildly enlarged. There are atherosclerotic calcifications within the aorta. BONES AND SOFT TISSUES: No acute osseous lesion. Soft tissues are unremarkable. UPPER ABDOMEN: No free air under the diaphragm. IMPRESSION: Cardiomegaly and pulmonary vascular congestion. Signed by: Walt Santizo DO on 07/19/2019 11:06 PM
[2019-07-19] MEDS ORDERED: ONDANSETRON HCL INJ 2MG/ML 2ML 2 MG/ML VIAL IV PRN (23:45)
--- OUTSIDE RECORDS SUMMARY | 2019-07-19 23:56 | XMS REPORT | Continuity of Care Document ---
Author Author [employer] Organization [employer] Address Unknown Phone Unavailable Care Team Providers Care Polo Coach Name Role Phone [employer] Information [email or web address] Unavailable Unavailable Problems Problem Status Onset Date Classification Date Reported Comments Source Radiculopathy, lumbar region 11/30/2018 06/11/2019 [facility] [place] Dorsalgia, unspecified 10/10/2018 04/22/2019 [facility] [place] DX: I48.91=UNSPECIFIED ATRIAL FIBRILLATI Active 03/01/2017 [facility] R10.12 - LEFT UPPER QUADRANT PAIN Active 12/26/2015 [facility] Ifeelgoods V82.81 - SCREEN - OSTEOP Active 12/24/2014 [facility] [place] Spinal stenosis, lumbar region with neurogenic claudication 06/11/2019 [facility] [place] Other intervertebral disc disorders, lumbosacral region 06/11/2019 [facility] [place] Pathological fracture, other site, initial encounter for fracture 06/11/2019 [facility] [place] Pain in right hip 04/22/2019 [facility] [place] Pain in left hip 04/22/2019 [facility] [place] Other spondylosis, lumbar region 04/22/2019 [facility] [place] UNSPECIFIED ATRIAL FIBRILLATION Active [facility] Medications No Data Provided for This Section Allergies, Adverse Reactions, Alerts No Known Medication Allergies Immunizations No Data Provided for This Section Results No Data Provided for This Section Pathology Reports No Data Provided for This Section Diagnostic Reports Report Value Date Source Spine lumbar w/wo contrast MRI EXAM: MRI LUMBAR SPINE WITHOUT AND WITH CONTRAST DATE: 11/21/2018 14:29 OUTGOING INSPECTOR . ORDERING PHYSICIAN: Melva Coles MD CLINICAL [...] 02/04/2017 mammogram, 01/02/2016 mammogram, 01/02/2015 mammogram - [facility], 12/24/2014 mammogram and 12/18/2013 mammogram - [facility]. A stereotactic guided biopsy was performed for [...] location, multiple specimens were obtained using the RazorGator system. A clip was inserted into the [...] hrs 03/14/17. Lucas Palencia M.D. ap/:03/14/2017 14:15:11 Engineer Soils: Kiersten Falcon, [facility] This exam was dictated and interpreted by [id number] for [facility]. 03/10/2017 [facility] Mammo Diag UNI incl CAD MA - BREAST MAMMO DIAG UNI INCL CAD MA/L UNILATERAL LEFT DIGITAL DIAGNOSTIC MAMMOGRAM WITH CAD: 02/23/2017 CLINICAL: Calcium Deposit. Current study was evaluated with a Computer Aided Detection (CAD) system. Comparison is made to exams dated: 02/04/2017 mammogram, 01/02/2016 mammogram, 01/02/2015 mammogram - [facility], 12/24/2014 mammogram, 12/18/2013 mammogram and 12/14/2012 mammogram - [facility]. The tissue of the left breast is [...] Diagnostic Imaging. Hiren Mcrae M.D. cm/:02/23/2017 15:38:09 Engineer Soils: Addis Coronel RT(R)(M), [facility] This exam was dictated and interpreted by [id number] for KENDRA Gaxiola. letter sent: Biopsy Mammogram BI-RADS: 4 Suspicious abnormality 02/23/2017 KENDRA OMARI [place] Breast Mammo Scrn RAFY incl CAD MA - BREAST MAMMO SCRN RAFY INCL CAD MA BILATERAL DIGITAL SCREENING MAMMOGRAM WITH CAD: 02/04/2017 CLINICAL: Breast Cancer Screening. Current study was evaluated with a Computer Aided Detection (CAD) system. Comparison is made to exams dated: 01/02/2016 mammogram, 01/02/2015 mammogram - [facility], 12/24/2014 mammogram, 12/18/2013 mammogram, 12/14/2012 mammogram and 12/17/2010 mammogram - [facility]. The tissue of both breasts is heterogeneously [...] ultrasound are recommended. SUMMARY: The staff of [facility] with [facility] will contact the referring physician for orders and then contact the patient to schedule the additional studies. A supplemental report will be issued following interpretation of the additional studies. Professional services are provided by the [facility] of Diagnostic Imaging. Genevieve rubin/jn:02/08/2017 08:46:04 Engineer Soils: Priscilla Waterman RT(R)(M), [facility] This exam was dictated and interpreted by [id number] for KENDRA Santillan. letter sent: Additional Imaging [...] 5. Mild left subacromial subdeltoid bursitis. [facility] [place] [facility] CLINICAL HISTORY: left shoulder [...] changes of the acromioclavicular joint.. 03/04/2016 [facility] [place] Digital Mammo Screening Rafy MA - DIGITAL MAMMO SCREENING RAFY MA BILATERAL DIGITAL SCREENING MAMMOGRAM WITH CAD: 01/02/2016 CLINICAL: Routine. Current study was evaluated with a Computer Aided Detection (CAD) system. Comparison is made to exams dated: 01/02/2015 mammogram - [facility], 12/24/2014 mammogram, 12/18/2013 mammogram, 12/14/2012 mammogram, 12/17/2010 mammogram and 04/24/2009 mammogram - [facility]. The tissue of both breasts is heterogeneously dense, which could obscure detection of small masses. There is evidence of post surgical and radiation changes associated with the right breast. No significant masses, calcifications, or other findings are seen in either breast. IMPRESSION: BENIGN There is no mammographic evidence of malignancy. A 1 year screening mammogram is recommended. Dr. Aman Amanda M.D. eoc/penrad:01/06/2016 14:05:13 Engineer Soils: Addis HARDIN(R)(M), [facility] This exam was dictated and interpreted by [id number] at [facility]. letter sent: Normal exam Mammogram BI-RADS: 2 Benign 01/02/2016 [facility] [place] Chest 2 views DX CHEST PA AND [...] CHEST WITHOUT CONTRAST DATE: 01/02/2016 10:07 AM OUTGOING INSPECTOR INDICATION: R10.12 Left upper quadrant pain TECHNIQUE: [...] lobe cyst. 6. Bilateral nonobstructive nephrolithiasis. 01/02/2016 [facility] Chest w/wo contrast CT CHEST CT CLINICAL [...] liver lesion suggestive of a cyst. 12/24/2013 [facility] Chest 2 views HISTORY: Hypertension TECHNIQUE: [...] to previous chest x-ray of 12/14/2012. 12/18/2013 [facility] Digital Mammo Screening Rafy MA - DIGITAL MAMMO SCREENING RAFY MA BILATERAL DIGITAL SCREENING MAMMOGRAM WITH CAD: 12/18/2013 CLINICAL: Routine. Current study was evaluated with a Computer Aided Detection (CAD) system. Comparison is made to exam dated: 04/24/2009 mammogram - [facility]. The tissue of both breasts is heterogeneously [...] recommended. Dr. Aman Amanda M.D. eoc/penrad:12/18/2013 11:49:16 Engineer Soils: TEODORA CORTEZ, [facility] This exam was dictated and interpreted by [id number] for Jovan Santillan. letter sent: Normal exam Mammogram BI-RADS: 2 Benign 12/18/2013 [facility] Consultation Notes No Data Provided for This Section Discharge Summaries No Data Provided for This Section History and Physicals No Data Provided for This Section Vital Signs No Data Provided for This Section Encounters Location Location Details Encounter Type Encounter Number Reason For Visit Attending Provider ADM Date DC Date Status Source [facility] [place] [facility] [id number] Melva Sanket 01/02/2015 01/03/2015 [facility] [place] [facility] [place] [facility] [id number] Melva Sanket 01/02/2016 [facility]03[facility] [place] [facility] [id number] Melva Sanket 01/02/2016 01/03/2016 [facility] [place] [facility] [place] [facility] [id number] Melva Sanket 03/04/2016 03/05/2016 [facility] [place] [facility] [place] [facility] [id number] Melva Sanket 02/04/2017 02/05/2017 [facility] [place] [facility] [place] [facility] [id number] Melva Sanket 02/23/2017 02/24/2017 [facility] [place] [facility] [id number] Melva Sanket 03/10/2017 03/11/2017 [facility] [place] [facility] [id number] Melva Sanket 10/02/2018 10/03/2018 [facility] [place] [facility] [place] [facility] [id number] Melva Sanket 11/21/2018 11/22/2018 [facility] [place] Procedures No Data Provided for This Section Assessment and Plan No Data Provided for This Section Plan of Care No Data Provided for This Section Social History Social History Date Source No data available for this section 11/22/2018 [facility] [place] No data available for this section 03/11/2017 [place] No data available for this section 01/03/2016 [facility] [place] Family History No Data Provided for This Section Advance Directives No Data Provided for This Section Functional Status No Data Provided for This Section
[2019-07-20] VITALS (19 sets, daily range): BP systolic 77–173; BP diastolic 43–101
[2019-07-20] MEDS: CEFEPIME 2 GM/NS 0.9% 100 ML 100 ML IV SCH ×3 (00:25→23:57)
[2019-07-20] MEDS ORDERED: POTASSIUM CHLORIDE 20MEQ/100ML 100 ML IV ONE (01:00)
[2019-07-20] MEDS ORDERED: POTASSIUM CHLORIDE 20MEQ/100ML 100 ML IV STA (02:11)
[2019-07-20] MEDS ORDERED: FUROSEMIDE INJ 10 MG/ML 2 ML VIAL IV ONE (02:15)
[2019-07-20] MEDS: DIGOXIN INJ 0.25 MG/ML 2 ML AMP IV SCH ×2 (02:17→06:06)
--- NOTE | 2019-07-20 02:17 | NUR ---
PT PLACED ON BIPAP 10/5 40% FIO2, SATS 100%
[2019-07-20] MEDS ORDERED: ACETAMINOPHEN 1000 MG/100 ML IV PRN (02:30)
[2019-07-20] MEDS ORDERED: ACETAMINOPHEN 1000 MG/100 ML IV STA (02:32)
[2019-07-20] MEDS ORDERED: MORPHINE SULFATE 2 MG/ML SYR 1ML IV STA ×2 (02:33→03:13)
[2019-07-20] MEDS ORDERED: ONDANSETRON HCL INJ 2MG/ML 2ML 2 MG/ML VIAL IV STA (02:33)
[2019-07-20] MEDS: KCL 20MEQ/.9 SOD CHL 1,000 ML IV SCH (05:00)
[2019-07-20 05:31] LABS: BASOPHILS % 0.2 % (0.0-1.0); EOSINOPHILS # (AUTO) 1.9 (0.0-0.4); EOSINOPHILS % 29.2 % (0.0-6.0); HEMATOCRIT 38.1 % (34.2-44.1); HEMOGLOBIN 11.8 g/dL (12.0-16.0); LYMPHOCYTES # (AUTO) 0.4 (1.0-3.2); LYMPHOCYTES % 6.1 % (18.0-39.1); MEAN CORPUSCULAR HEMOGLOBIN 29.7 pg (28-32); MONOCYTES # (AUTO) 0.1 (0.2-0.8); NEUTROPHILS # (AUTO) 3.5 (2.1-6.9); NEUTROPHILS % 53.3 % (38.7-80.0); PLATELET COUNT 92 x10e3/uL (140-360); RED BLOOD COUNT 3.97 x10e6/uL (3.6-5.1); RED CELL DISTRIBUTION WIDTH 15.9 % (11.7-14.4)
[2019-07-20 05:43] LABS: ALBUMIN 2.7 g/dL (3.5-5.0); ANION GAP 17.5 mmol/L (8-16); CREATININE, SERUM 1.84 mg/dL (0.57-1.11); POTASSIUM 4.5 mmol/L (3.5-5.1)
[2019-07-20 07:48] LABS: EOSINOPHILS % (MANUAL) 20 % (0-7); LYMPHOCYTES % (MANUAL) 6 % (19-48); MONOCYTES % (MANUAL) 3 % (3.4-9.0); NEUTROPHILS % (MANUAL) 71 % (40-74); PLATELET ESTIMATE MODERATELY DECREASED
[2019-07-20 07:49] LABS: PLATELET MORPHOLOGY COMMENT FEW LARGE; RBC MORPHOLOGY COMMENT NORMAL
[2019-07-20] MEDS ORDERED: VANCOMYCIN 1GM/NS 250 ML 250 ML IV ONE (08:30)
[2019-07-20] MEDS ORDERED: B&O 60MG R/S 60 MG SUPP PR ONE (08:53)
[2019-07-20] MEDS ORDERED: IOPAMIDOL 610MG/1ML 300 MG/ML VIAL IV ONE (08:54)
[2019-07-20] MEDS: METOPROLOL TARTRATE 50 MG TAB PO SCH ×2 (09:00→16:26)
[2019-07-20] MEDS: DIGOXIN 0.125 MG TAB PO SCH (09:00)
[2019-07-20] MEDS ORDERED: FUROSEMIDE INJ 10 MG/ML 4 ML VIAL IV ONE ×2 (09:45→21:45)
[2019-07-20] MEDS ORDERED: FENTANYL CITRATE/PF 100MCG/2 ML INJ ONE (14:34)
--- NOTE | 2019-07-20 14:43 | Consultation ---
DATE OF CONSULTATION: Pulmonary Critical Care Consultation CHIEF COMPLAINT: Decreased responsiveness and pyelonephritis. HISTORY OF PRESENT ILLNESS: The patient is an 83-year-old woman. She has a history of atrial fibrillation. She has a history of prior cardiac catheterization in 2016 that showed no obstructive coronary artery disease. She came to the hospital complaining of worsening confusion and decreased responsiveness for several days. She also had a fast heart rate. Further evaluation in the emergency department showed an obstructed ureter and some hydronephrosis, fever, and elevated lactic acid consistent with sepsis. She received IV antibiotics. Urology was contacted and they recommended a percutaneous nephrostomy tube. PAST SURGICAL HISTORY: 1. History of cardiac catheterization in 2016 that showed no significant coronary artery disease. 2. Status post right lumpectomy for breast cancer. 3. Lumbar laminectomy. 4. Appendectomy. 5. Tonsillectomy. PAST MEDICAL HISTORY: 1. History of breast cancer that required lumpectomy and chemotherapy. 2. History of atrial fibrillation and congestive heart failure. SOCIAL HISTORY: The patient is not an active smoker or drinker. She is here with her . ALLERGIES: THE PATIENT IS ALLERGIC TO PENICILLIN AND CLINDAMYCIN. REVIEW OF SYSTEMS: The patient is afebrile. The blood pressure is 88/57 and the saturation is 95%. She is on BiPAP with 60% oxygen. Heart rate is now 90 to 100, but is irregularly irregular. The patient has a history of fevers. The patient also has decreased responsiveness. There was no headache. She has no chest pain. She is not complaining of dyspnea or cough. There was some abdominal pain. She does not complain of dysuria or hematuria. She has no focal neurological abnormalities. PHYSICAL EXAMINATION: VITAL SIGNS: The patient is afebrile now, although she did have a temperature of 103.4 on arrival. Her blood pressure is 88/57 and the saturation is 95%. She is on BiPAP and FiO2 of 60%. HEENT: Shows no facial swelling or erythema. CARDIAC: Reveals a regular rate and rhythm with a normal S1, S2. There are no murmurs or rubs heard. LUNGS: Auscultation of lungs reveals clear breath sounds bilaterally. There is no wheezing. ABDOMEN: Soft and nontender. There is no rebound or guarding. EXTREMITIES: Show no leg edema or calf tenderness. There is no cyanosis or clubbing. SKIN: Shows no rashes. NEUROLOGICAL: Shows no focal abnormalities. LABORATORY DATA: White blood cell count is 6.5 and hemoglobin is 11.8. The platelet count is 92. BUN to creatinine ratio is 34 to 1.84. Carbon dioxide is 17 and the lactic acid is 57.5. Total bilirubin is 1.3 and albumin is 2.7. PT is 17.3 and INR is 1.35. Urinalysis shows some trace blood. RADIOGRAPHIC DATA: CT scan of the abdomen and pelvis shows an 8 mm obstructive calculus in the left ureteropelvic junction with obstructing [id number] left hydronephrosis. There is also some cardiomegaly present and nonobstructive bilateral renal calculi. CT scan of the head shows some generalized volume loss. Chest x-ray shows cardiomegaly and some pulmonary venous congestion. IMPRESSION: 1. Pyelonephritis secondary to an obstructed ureter with severe sepsis present on admission. 2. Acute on chronic diastolic heart failure. 3. Acute kidney injury. 4. Metabolic encephalopathy. 5. Atrial fibrillation. 6. Remote history of breast cancer. 7. Nephrolithiasis. PLAN: 1. The patient will receive IV antibiotics and intravenous fluids. 2. She needs urgent relief of her ureteral obstruction either with percutaneous nephrostomy tube or with ureteroscopy and stone retrieval. 3. Continue BiPAP as needed. 4. Decrease IV fluids because of worsening pulmonary edema. Leland Lawler MD LMH/MODL /[id number]
[2019-07-20] MEDS ORDERED: ALBUMIN 25% 25GM 100ML 100 ML IV ONE (15:45)
[2019-07-20] MEDS ORDERED: ALBUMIN 25% 25GM 100ML 0.25 GM/ML BTL IV ONE (15:45)
[2019-07-20] MEDS: SODIUM BICARBONATE 8.4% 100 ML in DEXTROSE 5% 1,000 ML IV SCH (16:26)
--- NOTE | 2019-07-20 16:54 | History and Physical ---
REASON FOR ADMISSION: Ms. Lynn is a very elderly 83-year-old woman, known to us from previous care, who was brought to the emergency room via ambulance after having abdominal pain and confusion at home. HISTORY OF PRESENT ILLNESS: The patient's tells me that Tuesday evening of the , [facility], did not have any problem, but overnight and on the morning of the , she reports she had abdominal discomfort and later became confused and poorly arousable. PAST MEDICAL HISTORY: Long and complex with previous breast cancer, treated with lumpectomy and tamoxifen in 1994 and 2016. She has chronic constipation, chronic atrial fibrillation, hypertension, and hyperlipidemia. She is felt to have COPD, mild aortic stenosis, and some pulmonary hypertension. PREVIOUS SURGERIES: Include lumpectomy of the right breast in 1996, lumbar laminectomy, tonsillectomy, appendectomy remote, lumpectomy of the left breast in 2016 with radiation and Arimidex followed by left mastectomy. Cardiac catheterization performed in 2015, showed no significant coronary artery disease and good left ventricular function. MEDICATIONS: Home medications include: 1. Isosorbide daily. 2. Hydrochlorothiazide 25 mg daily. 3. Lovastatin 20 mg daily. 4. Lisinopril 10 mg daily. 5. Potassium 20 mEq daily. 6. Metoprolol tartrate 50 mg three times a day. 7. Digoxin 0.125 mg daily. 8. Arimidex. 9. Azithromycin. 10. Xarelto 15 mg daily for her atrial fibrillation. ADDITIONAL HISTORY: She was hospitalized at [facility] in January 2019 after falling down and sustaining fractures of the left superior and inferior pubic rami, treated medically. PHYSICAL EXAMINATION: GENERAL: At this time shows an elderly white woman, who is alert, somewhat confused. Normotensive. Pulse is 80 and irregular. HEAD, EYES, EARS, NOSE, AND THROAT: Unremarkable. THORAX: Previous breast surgeries. HEART: Sounds S1 and S2 are equal, but irregularly irregular with 1/6 systolic murmur. LUNGS: Clear. ABDOMEN: Protuberant. Normal bowel sounds. Nontender. EXTREMITIES: No cyanosis, clubbing, or edema. LABORATORY STUDIES: Show BUN 34 and creatinine 1.8. Initial white count of 11.7, has improved to 6.5. INR 1.3. Lactic acid though originally 35, has increased to 57. Dig level less than 0.3. BNP 2420. CT of the abdomen shows ureteral stone and left hydronephrosis. Chest x-ray shows congestion. EKG shows atrial fibrillation. ASSESSMENT: 1. Renal stone and left hydronephrosis. 2. Urosepsis. 3. Congestive heart failure. 4. Chronic atrial fibrillation. PLAN: I have discussed with Dr. Boateng and hopefully, she can have cystoscopy and ureteral stent. She is on broad-spectrum antibiotics. We will give one dose of Lasix and monitor volume status. Her prognosis is guarded. MD MAXI Wilson/BERNABE /[id number] cc: MD Mele Rios MD Josee Laliberte, MD
--- NOTE | 2019-07-20 16:54 | Operative Report ---
DATE OF PROCEDURE: 07/20/2019 SURGEON: Mele Boateng MD PREOPERATIVE DIAGNOSES: 1. Left nephrolithiasis. 2. Left hydronephrosis. 3. Acute renal failure. POSTOPERATIVE DIAGNOSES: 1. Left nephrolithiasis. 2. Left hydronephrosis. 3. Acute renal failure. 4. Perivaginal sebaceous cysts. 5. Severely atrophic (senile) vaginitis. OPERATIONS PERFORMED: 1. Cystourethroscopy with bilateral ureteral catheterization, retrograde ureteropyelography. 2. Cystourethroscopy with manipulation of left proximal stone into the renal pelvis to relieve the obstruction. 3. Urological Services for supervision and interpretation for stone manipulation. 4. Cystourethroscopy with placement of left indwelling ureteral stent (separately performed to relieve the hydronephrosis). 5. Cystourethroscopy with insertion of right indwelling ureteral stent (separately performed due to acute renal failure). 6. Interpretation of retrograde ureteropyelography. 7. Pelvic examination under anesthesia. ANESTHESIA: General. COMPLICATIONS: None. CLINICAL SUMMARY: Please refer to the emergent consultation dictation from the same date. OPERATIVE PROCEDURE IN DETAIL: Informed consent was verified. Analia Lynn was properly identified, taken to the operating room, placed on the cystoscopy table in supine position. Anesthesia was uneventfully begun. The patient was hemodynamically unstable and she was placed in the Trendelenburg position to maintain her blood pressure in addition to anesthetic interventions. She was carefully gently repositioned in dorsal lithotomy position with all pressure points well padded. Her genitalia were prepared and draped in usual sterile fashion. The cystoscope sheath was inserted into the patient's urethra and bladder was drained. Panendoscopy revealed inflammation throughout the bladder consistent with acute urinary tract infections. There were no tumors. There were no stones. Normally positioned configured ureteral orifices were identified. Next, an open-ended ureteral catheter was used to cannulate the left ureter. Minimal amount of contrast was injected to barely opacify the collecting system. We identified the stone at the level of the proximal ureter or ureteropelvic junction that was causing obstruction. We brought the open-ended catheter to this region, gently tapped on the stone and sought floating into the renal pelvis, thus we manipulated the stone to relieve the obstruction. A hydronephrotic drip was obtained and sent for culture and sensitivity. With cystoscopic and fluoroscopic guidance, a 24 cm 7-Tanzanian ureteral stent was placed. It was coiled into the patient's renal pelvis as well as in the patient's bladder. Due to the angling, it seems that this patient's kidney is very low, so the distal coil of the stent is actually across the bladder over the right side. Nevertheless, the system was stented. We did not want to do any more manipulation of this infected system. An open-ended catheter was used to cannulate the right ureter. Retrograde ureteral pyelograms were performed. With cystoscopic and fluoroscopic guidance, a right-sided indwelling ureteral stent was then placed. It was coiled into the patient's upper pole calyx as well as the patient's bladder. This 22 cm stent was in good position. Interpretation of retrograde ureteropyelography contrast was instilled in a retrograde fashion bilaterally. There was mild left-sided hydronephrosis. There were filling defects corresponding to the large stone that was obstructing. The right side did not show hydronephrosis. The stent was in good position, coiled the patient's kidney as well as the patient's bladder at the end of the case. I did not visualize the stone noted on CT, but that was because only minimal contrast was utilized in order to avoid worsening the bacteremia. The cystoscope was withdrawn. A 24-Tanzanian Cline catheter was placed. It was irrigated to and fro to ensure working properly. Pelvic examination under anesthesia revealed severely atrophic vaginitis. There were no tumors. They were easily visible. No palpable pelvic masses could be appreciated. There were no obvious mucosal lesions. There were numerous small sebaceous cysts around the labia and there was a large palpably cystic structure at the right labia consistent with a large sebaceous cyst, probably 2-3 cm in size. It was mobile, did not seem suspicious on examination. The patient was then uneventfully reversed from anesthesia and taken to recovery room in relatively stable condition. There were no complications to the procedure. The patient seemed to tolerate the procedure well. There was no significant blood loss. The patient was relatively stable in the OR and on route to the recovery room. Nevertheless, she remained a critically ill patient at the present time. Mele Boateng MD [place]/MODL /[id number] cc: Melva Coles MD
--- NOTE | 2019-07-20 16:59 | Consultation ---
DATE OF CONSULTATION: 07/20/2019 Urology Consultation. REASON FOR CONSULTATION: Urosepsis. HISTORY OF PRESENT ILLNESS: Analia Lynn is an 83-year-old woman without any previous urological evaluation. She has not really had significant urological history. She does report having some stress and urge type urinary incontinence, but this has not been addressed. She denies ever having urological surgery. She has had urinary tract infections in the past. She denies previous urolithiasis. The patient had mental status changes yesterday and was brought to the emergency room. She was evaluated and found to have obstructing proximal left ureteral and UPJ stone. She was found to have obstructing left UPJ stone. The patient had fever as well as leukocytosis along with thrombocytopenia with an elevated lactic acid. Urological consultation was sought for drainage. I instructed the emergency room to ask Interventional Radiology to urgently place a nephrostomy tube due to the septic patient. Interventional Radiology was not comfortable due to performing the procedure without anesthesia help. I was called this morning that the patient had not had her nephrostomy as planned and that her septic picture appears to be deteriorating and that urgent ureteral stenting is required despite the significant risk of performing any procedure in this patient who is severely ill. Nevertheless, a life saving ureteral stent procedure seems to be required. PAST MEDICAL AND SURGICAL HISTORY: 1. Atrial fibrillation. 2. 4, para 4, by normal spontaneous vaginal delivery. 3. Status post appendectomy at age 12. 4. History of fall and pelvic fracture treated nonoperatively. 5. Breast cancer status post surgery and radiation, but not chemotherapy. ALLERGIES: CLINDAMYCIN AND PENICILLIN. SOCIAL HISTORY: The patient never smoked, drinker, and no use any drugs. The patient worked in a clerical role. She has very supportive family at the bedside. FAMILY HISTORY: Noncontributory to the active urological problems. CURRENT MEDICATIONS: Please refer to the MAR. The patient's last dose of Xarelto was 2 days ago. REVIEW OF SYSTEMS: Discussed as above in history of present illness and past medical history, otherwise negative for all systems. PHYSICAL EXAMINATION: GENERAL: Somewhat confused elderly woman lying in bed, in no apparent distress with vital signs fairly stable, but she is obviously critically ill. Her temperature maximum is 103.4 upon presentation to the emergency room. Since then, she has not had any more fever spikes documented. ABDOMEN: Soft, nondistended, not tender except for some mild tenderness in the left costovertebral angle. GENITOURINARY: The patient has a Cline catheter in place with thick purulent urine emerging consistent with severe urinary tract infection. Internal examination is deferred to the operating room. For the remaining physical examination systems, please refer to the ERT sheet as well as the H and P as well as the other workday consultant's dictation. LABORATORY STUDIES: Blood cultures are pending. Urine culture is positive for gram-negative bacillus. The patient's potassium is 4.5, which is better than the low potassium of 2.5, which she has had. Calcium is low at 8, PT is elevated at 17.3, digoxin level is low. Urinalysis significant for nitrite positive urine with many bacteria. A CT scan of the abdomen and pelvis reveals an 8 mm obstructing calculus at the left UPJ with left hydronephrosis, bilateral perinephric fat stranding, left greater than right, and right-sided nephrolithiasis as well, measuring 7 mm maximum. ASSESSMENT: 1. Left hydronephrosis due to stone. 2. Bilateral nephrolithiasis. 3. Mixed type of urinary incontinence. 4. Urinary tract infection present on admission. 5. Sepsis, present on admission. 6. Hypokalemia. 7. Hypocalcemia. 8. Leukocytosis that improved. 9. Anemia. 10. Thrombocytopenia. 11. Coagulopathy due to Xarelto. PLAN: 1. I discussed with the patient who is confused, but also with multiple family members present including the daughter and the that the patient is critically ill and needs to undergo surgical intervention for drainage of this obstructed kidney. I informed them that she is very high risk for any surgery and may actually from the anesthesia, but that a life-saving stent is required or else she will most likely continue in the current past of being critically ill to which she would probably succumb without intervention. They understood the risks, benefits, and likely alternatives for this procedure given the fact that the Interventional Radiology has not agreed to place a nephrostomy as recommended in the early hours of the morning. 2. I posted the patient for stat cystoscopy and placement of stent and bumped the elective surgical schedule in order to perform this. 3. Ongoing urological followup is must. 4. I defer the hematological and electrolyte abnormalities to the admitting physician. 5. I recommend continue with multidisciplinary care. Thank you very much for involving us in care of your patient. We will be happy to follow her along with you as well as an outpatient. Mele Boateng MD [facility] /[id number] cc: Melva Coles MD
[2019-07-20 17:02] LABS: ABG PH 7.36 (7.31-7.41)
[2019-07-20 17:03] LABS: ABG HCO3 16 mmol/L (23-28); ABG PCO2 28 mmHg (41-51); ABG PO2 172 mmHg (80-105)
[2019-07-20] MEDS ORDERED: ONDANSETRON HCL INJ 2MG/ML 2ML 2 MG/ML VIAL ONE (17:43)
[2019-07-20] MEDS ORDERED: PROPOFOL IV EMULSION 10 MG/ML 20 ML VIAL ONE (17:43)
[2019-07-20] MEDS ORDERED: LIDOCAINE HCL 2% LOCAL INJ 5 ML SDV VIAL INJ ONE (17:43)
[2019-07-20] MEDS ORDERED: EPINEPHRINE HCL 1:1000 1ML 1 MG/ML AMP ONE (17:43)
[2019-07-20] MEDS ORDERED: SEVOFLURANE INHAL SOLN 250 ML PEN BTL ONE (17:43)
[2019-07-20] MEDS ORDERED: PHENYLEPHRINE HCL 1% 10 MG/ML VIAL ONE (17:43)
[2019-07-21] VITALS (25 sets, daily range): BP systolic 20–158; BP diastolic 56–113
--- NOTE | 2019-07-21 00:40 | NUR ---
Notified Dr. Cindy Lawler @ 2395 of pt low urine output. 50 ml for first 2 hrs of shift. Order obtained for Lasix 40 IV one time dose. Pt did not respond to medication. Paged Dr. Lawler again to notify him of outcome, will continue to monitor at this time.
[2019-07-21] MEDS ORDERED: SODIUM CHLORIDE 0.45% 250 ML IV ONE (01:00)
[2019-07-21] MEDS: KCL 20MEQ/.9 SOD CHL 1,000 ML IV SCH ×2 (01:00→21:00)
[2019-07-21 05:04] LABS: BASOPHILS # (AUTO) 0.1 (0.0-0.1); BASOPHILS % 0.5 % (0.0-1.0); EOSINOPHILS # (AUTO) 0.7 (0.0-0.4); EOSINOPHILS % 4.3 % (0.0-6.0); HEMATOCRIT 34.2 % (34.2-44.1); HEMOGLOBIN 10.8 g/dL (12.0-16.0); LYMPHOCYTES # (AUTO) 0.5 (1.0-3.2); LYMPHOCYTES % 3.1 % (18.0-39.1); MEAN CORPUSCULAR HEMOGLOBIN 29.3 pg (28-32); MEAN CORPUSCULAR HGB CONC 31.6 g/dL (31-35); MEAN CORPUSCULAR VOLUME 92.7 fL (81-99); MONOCYTES # (AUTO) 0.3 (0.2-0.8); MONOCYTES % 1.6 % (4.4-11.3); NEUTROPHILS # (AUTO) 11.6 (2.1-6.9); NEUTROPHILS % 74.8 % (38.7-80.0); PLATELET COUNT 62 x10e3/uL (140-360); RED BLOOD COUNT 3.69 x10e6/uL (3.6-5.1); RED CELL DISTRIBUTION WIDTH 16.1 % (11.7-14.4)
[2019-07-21 05:25] LABS: ALBUMIN 2.8 g/dL (3.5-5.0); ANION GAP 17.4 mmol/L (8-16); CALCIUM 7.9 mg/dL (8.4-10.2); CREATININE, SERUM 2.26 mg/dL (0.57-1.11); POTASSIUM 4.4 mmol/L (3.5-5.1)
--- NOTE | 2019-07-21 07:48 | Diagnostic Imaging Report ---
EXAMINATION: CHEST SINGLE (PORTABLE) INDICATION: ^CHF ^[id number] ^0600 COMPARISON: Chest radiograph 07/19/2019 FINDINGS: AP view TUBES and LINES: None. LUNGS: Lungs are well inflated. Bilateral interstitial edema, unchanged. Stable bibasilar atelectasis. PLEURA: No pleural effusion or pneumothorax. HEART AND MEDIASTINUM: Stable mild enlargement of the cardiac silhouette. Moderate calcifications of the aortic arch. BONES AND SOFT TISSUES: No acute osseous lesion. Soft tissues are unremarkable. UPPER ABDOMEN: No free air under the diaphragm. IMPRESSION: Cardiomegaly with associated bilateral interstitial edema, unchanged. Signed by: Dr. Amy Sprague M.D. on 07/21/2019 7:45 AM
[2019-07-21 08:03] LABS: BAND NEUTROPHILS % (MANUAL) 14 %; LYMPHOCYTES % (MANUAL) 4 % (19-48); METAMYELOCYTES % (MANUAL) 11 % (0-0); MONOCYTES % (MANUAL) 2 % (3.4-9.0); NEUTROPHILS % (MANUAL) 69 % (40-74)
[2019-07-21 08:04] LABS: PLATELET ESTIMATE MODERATELY DECREASED; PLATELET MORPHOLOGY COMMENT NORMAL; RBC MORPHOLOGY COMMENT NORMAL
--- NOTE | 2019-07-21 08:11 | NUR ---
Dr Cindy Lawler to bedside; patient HOB elevated to 90 degrees. Instructed to assess an ABG and then remove left arterial line. RT informed. Patient's and daughter to bedside; updated on plan of care.
[2019-07-21] MEDS ORDERED: SODIUM CHLORIDE 0.9% 1000ML 1,000 ML IV SCH (08:15)
--- NOTE | 2019-07-21 08:30 | NUR ---
Consult called to Dr Oliver's answering service.
--- NOTE | 2019-07-21 08:57 | Progress Note ---
DATE: SUBJECTIVE: The patient had very poor urine output overnight despite receiving albumin and a liter of fluid. She also received Lasix with no urine output. She remains on a bicarb drip at 50 mL an hour. She had some agitation during the night. She has been on BiPAP. PHYSICAL EXAMINATION: VITAL SIGNS: The patient is afebrile. The blood pressure is 150-160/80-90 and the heart rate is 110-120. There is an irregularly irregular rhythm. The respiratory rate is 22. HEENT: Shows no facial swelling or erythema. CARDIAC: Reveals an irregularly irregular rhythm with a normal S1 and S2. There are no murmurs or rubs. LUNGS: Auscultation of lungs reveals crackles in both lung jamil. There is no wheezing. ABDOMEN: Soft and nontender. There is no rebound or guarding. EXTREMITIES: Show no leg edema. There are SCDs in place. LABORATORY DATA: White blood cell count is 15.4 and hemoglobin is 10.8. The platelet count is 62. The BUN to creatinine ratio has increased to 52/2.26 and the CO2 remains at 17. Total bilirubin is increased to 1.5. The albumin is 2.8. RADIOGRAPHIC DATA: Chest x-ray shows some findings consistent with cardiogenic pulmonary edema. IMPRESSION: 1. Severe septic shock secondary to pyelonephritis, present on admission. 2. Thrombocytopenia secondary to sepsis. 3. Acute kidney injury. 4. Atrial fibrillation with rapid ventricular response. 5. Metabolic encephalopathy. 6. Remote history of breast cancer. 7. Nephrolithiasis. PLAN: 1. Continue current antibiotics. 2. Adjust fluids to increase urine output. 3. Nephrology consultation. 4. Continue high-flow oxygen and BiPAP as needed. 5. Continue digoxin for rate control. 6. Case discussed with Nursing, Respiratory, and family. 7. Greater than 35 minutes in direct critical care time. MD LOLI Rios/BERNABE /[id number]
[2019-07-21 09:04] LABS: ABG HCO3 18 mmol/L (23-28); ABG PCO2 28 mmHg (41-51); ABG PO2 190 mmHg (80-105)
[2019-07-21] MEDS: DIGOXIN 0.125 MG TAB PO SCH (09:21)
[2019-07-21] MEDS: METOPROLOL TARTRATE 50 MG TAB PO SCH ×2 (09:26→21:00)
[2019-07-21] MEDS ORDERED: HALOPERIDOL LACTATE 5 MG/ML VIAL IV PRN (09:30)
--- NOTE | 2019-07-21 09:56 | NUR ---
Dr Oliver to bedside; order to stop NS at 50 and continue the Bicarb gtt.
[2019-07-21] MEDS ORDERED: SODIUM BICARBONATE 8.4% INJ 50 ML SYR IV ONE (10:00)
[2019-07-21] MEDS: CEFEPIME 2 GM/NS 0.9% 100 ML 100 ML IV SCH (12:00)
--- NOTE | 2019-07-21 12:39 | Consultation ---
DATE OF CONSULTATION: 07/21/2019 Renal Consultation REASON FOR CONSULTATION: Acute kidney injury. HISTORY OF PRESENT ILLNESS: An 83-year-old female with history of hypertension and atrial fibrillation, presented to [facility] with altered mental status. The patient on the day of admission, according to the , was lethargic and complaining of abdominal pain. She became incontinent and EMS was called. The patient was noted to have atrial fibrillation with RVR and a temperature of 103.4. The patient was admitted. She was noted to have a 0.8 cm obstructive calculus in the left ureteropelvic junction with [id number] left hydronephrosis. The patient was seen by Urology and underwent cystoscopy with life stent placement. The patient developed worsening kidney function and oliguria, and Nephrology consultation was called. According to family members, the patient never had any history of kidney disease in the past. REVIEW OF SYSTEMS: As above, otherwise unable to obtain as the patient is lethargic. PAST MEDICAL HISTORY: 1. Hypertension. 2. Atrial fibrillation. 3. History of breast cancer treated with lumpectomy and radiation. PAST SURGICAL HISTORY: 1. Appendectomy. 2. Tonsillectomy. 3. Lumpectomy of the right breast. 4. Lumbar laminectomy. 5. Cardiac cath, which was negative. SOCIAL HISTORY: No tobacco. No alcohol. No IV drugs. FAMILY HISTORY: No family history of kidney disease. ALLERGIES: NONE PER FAMILY. PENICILLIN AND CLINDAMYCIN PER MEDICAL RECORD. MEDICATIONS: Metoprolol, digoxin, cefepime, sodium bicarbonate, and Zofran. PHYSICAL EXAMINATION: VITAL SIGNS: Blood pressure 131/64, pulse 86, respiratory rate 22, and temperature 98.3, was 103.4 on arrival. GENERAL: No apparent distress. Lethargic. HEENT: Oropharynx clear. No scleral icterus. No peripheral edema. NECK: Supple. No elevation of jugular venous pressure. No lymphadenopathy. CHEST: Clear to auscultation anteriorly bilaterally. CARDIOVASCULAR: Regular rhythm. No murmurs or rubs appreciated. ABDOMEN: Soft. Positive bowel sounds. No tenderness. No rebound. EXTREMITIES: No edema. No clubbing. No cyanosis. : Cline catheter with dark color urine. LABORATORY DATA: White count 15.4, hemoglobin 10.8, hematocrit 34, and platelets 62. Sodium 142, potassium 4.4, chloride 112, CO2 17, BUN 52, creatinine 2.26, was 1.84 yesterday, and 1.75 on admission. Calcium 7.9. Total bilirubin 1.5 and AST 65. Albumin 2.8. Urine; positive nitrite, many bacteria. Urine culture; E. coli, sensitive to cefepime. IMAGING DATA: Chest x-ray, cardiomegaly with bilateral interstitial edema, unchanged. ASSESSMENT AND PLAN: 1. Acute kidney injury secondary to acute tubular necrosis from severe urinary tract infection. We will continue with current antibiotics, bicarb drip. Avoid all nephrotoxic medications. 2. Euvolemic on exam with some vascular congestion, may need Lasix. We will follow her volume status carefully. 3. Urinary tract infection. Continue with IV antibiotics. 4. Acidosis, on bicarb drip. 5. Hypertension. Blood pressure controlled. 6. Atrial fibrillation, rate controlled. MD MAXI Smith/BERNABE /[id number]
[2019-07-21] MEDS ORDERED: LIDOCAINE HCL 2% LOCAL 20 ML VIAL ONE (13:34)
--- NOTE | 2019-07-21 14:19 | Operative Report ---
DATE OF PROCEDURE: SURGEON: Leland Lawler MD PROCEDURE: Central line placement under ultrasound guidance. PREOPERATIVE DIAGNOSIS: [id number] diastolic heart failure. POSTOPERATIVE DIAGNOSIS: Spcop-ak-lgtclos diastolic heart failure. CONSENT: Consent was obtained from the . ASSISTANTS: None. ANESTHESIA: 1% lidocaine was used for local anesthesia. PROCEDURE IN DETAIL: The patient was placed in a supine position. Ultrasound machine was used to locate the right internal jugular vein. The skin was then prepped sterilely. A full length drape and sterile gown were used. A 16-gauge needle was used to cannulate the right internal jugular vein under direct visualization. A guidewire was then passed through the needle and a triple-lumen catheter was placed over the guidewire in a Seldinger technique. All the ports flushed. COMPLICATIONS: None. ESTIMATED BLOOD LOSS: None. Leland Lawler MD [facility] /[id number]
--- NOTE | 2019-07-21 14:51 | Diagnostic Imaging Report ---
EXAMINATION: CHEST SINGLE (PORTABLE) INDICATION: ^central line placement check ^[id number] ^1400 COMPARISON: Chest radiograph 07/21/2019 FINDINGS: AP view TUBES and LINES: Right IJ central venous catheter with tip overlying the lower SVC. LUNGS: Lungs are well inflated. Bilateral reticular opacities, worse in the left upper lobe suggestive of pulmonary edema. Bibasilar atelectasis. PLEURA: No pleural effusion or pneumothorax. HEART AND MEDIASTINUM: Stable moderate enlargement of the cardiac silhouette. The pulmonary arteries are enlarged suggestive of pulmonary hypertension. Moderate calcifications of the aortic arch. BONES AND SOFT TISSUES: No acute osseous lesion. Soft tissues are unremarkable. UPPER ABDOMEN: No free air under the diaphragm. IMPRESSION: New right IJ central venous catheter with tip overlying the lower SVC. No pneumothorax. Worsening bilateral pulmonary edema. Signed by: Dr. Amy Sprague M.D. on 07/21/2019 2:48 PM
[2019-07-21] MEDS ORDERED: FUROSEMIDE INJ 10 MG/ML 4 ML VIAL IV ONE (15:30)
[2019-07-21] MEDS ORDERED: ALBUMIN 25% 25GM 100ML 0.25 GM/ML BTL IV ONE (15:30)
[2019-07-21] MEDS: SODIUM BICARBONATE 8.4% 100 ML in DEXTROSE 5% 1,000 ML IV SCH (15:53)
--- NOTE | 2019-07-21 17:30 | NUR ---
Nutrition Screen Note RD Recommendation for Physician: 1. Advance diet as medically appropriate; diet progression per MD discretion Plan of Care: RD following Nutrition reason for involvement: Nutrition Risk Trigger Primary Diagnose(s): Chronic atrial fibrillation, fever, acute kidney injury secondary to acute tubular necrosis from severe urinary tract infection. PMH: Breast cancer, chronic atrial fibrillation, HTN, HLD, COPD Ht: 64in Wt: 171lbs BMI: 29.34 kg/m2 IBW: 120lb +/- 10% RD Assessment: (07/21) Chart reviewed. Labs and meds reviewed. 83 y/o F admitted to ICU for abdominal pain and altered mental status. Pt dx with acute kidney injury secondary to acute tubular necrosis from severe urinary tract infection and acidosis. Chest x-ray showed cardiomegaly with bilateral interstitial edema. Patient sleeping during time of visit, currently NPO (day 2). Per pt nurse, no plans of feeding at this time, pending further evaluation and MD discretion due to current medical status. Patient has been on nasal cannula and BiPAP machine as needed, unable to obtain information from patient. Pt family at bedside able to provide brief nutrition related information. Family reported patient eating regularly at home, denied any hx of any recent significant weight changes, N/V/D/C or difficulties with chewing or swallowing. Will continue to monitor and follow. Current Diet: NPO Malnutrition Evaluation (07/21) The patient does not meet criteria for a specified degree of malnutrition at this time. Will re-evaluate at follow-up as appropriate. RD unable to assess. Diet Education Needs Assessment: Diet education not indicated. Nutrition Care Level: MODERATE Signed: Muriel Kellogg, MS, RDN, LD
[2019-07-22] VITALS (19 sets, daily range): BP systolic 87–153; BP diastolic 54–109
[2019-07-22] MEDS: CEFEPIME 2 GM/NS 0.9% 100 ML 100 ML IV SCH ×2 (00:08→11:51)
[2019-07-22 05:24] LABS: BASOPHILS # (AUTO) 0.1 (0.0-0.1); BASOPHILS % 0.6 % (0.0-1.0); EOSINOPHILS # (AUTO) 7.9 (0.0-0.4); HEMATOCRIT 30.2 % (34.2-44.1); HEMOGLOBIN 9.7 g/dL (12.0-16.0); LYMPHOCYTES # (AUTO) 0.6 (1.0-3.2); LYMPHOCYTES % 3.3 % (18.0-39.1); MEAN CORPUSCULAR HEMOGLOBIN 29.7 pg (28-32); MEAN CORPUSCULAR HGB CONC 32.1 g/dL (31-35); MEAN CORPUSCULAR VOLUME 92.4 fL (81-99); MONOCYTES # (AUTO) 0.5 (0.2-0.8); MONOCYTES % 2.5 % (4.4-11.3); NEUTROPHILS # (AUTO) 8.9 (2.1-6.9); NEUTROPHILS % 47.5 % (38.7-80.0); RED BLOOD COUNT 3.27 x10e6/uL (3.6-5.1); RED CELL DISTRIBUTION WIDTH 15.9 % (11.7-14.4)
[2019-07-22 05:38] LABS: PLATELET COUNT 45 x10e3/uL (140-360)
[2019-07-22 05:42] LABS: ALBUMIN 3.1 g/dL (3.5-5.0); ALBUMIN/GLOBULIN RATIO 1.3 (0.8-2.0); ANION GAP 17.9 mmol/L (8-16); CALCIUM 8.6 mg/dL (8.4-10.2); CREATININE, SERUM 2.23 mg/dL (0.57-1.11); POTASSIUM 3.9 mmol/L (3.5-5.1)
--- NOTE | 2019-07-22 05:57 | NUR ---
Notified Dr. Cindy Lawler of critical plts of 45, urine output for shift of 300 ml, and vital signs/pt condition throughout night. Vital signs have been stable with fluctuating RR, pt on bipap. No new orders received, continue to monitor.
--- NOTE | 2019-07-22 08:04 | Diagnostic Imaging Report ---
A single frontal view of the chest. HISTORY: Chronic atrial fibrillation COMPARISON: Chest radiograph July 21, 2019 DISCUSSION: Portable technique, limits sensitivity of the exam. Tubes/Lines: Unchanged appearance of the right internal jugular vein central venous catheter. IMPRESSION: 1. Slightly decreased bilateral pulmonary edema. 2. Stable left retrocardiac opacity, considerations include asymmetric pulmonary edema and atelectasis. Superimposed pneumonia or aspiration may be consideration the appropriate setting. Signed by: Daryl Ahumada.O., M.M.M. on 07/22/2019 8:00 AM
[2019-07-22 08:41] LABS: BAND NEUTROPHILS % (MANUAL) 5 %; EOSINOPHILS % (MANUAL) 13 % (0-7); LYMPHOCYTES % (MANUAL) 5 % (19-48); MONOCYTES % (MANUAL) 2 % (3.4-9.0); NEUTROPHILS % (MANUAL) 75 % (40-74)
[2019-07-22 08:42] LABS: PLATELET ESTIMATE MODERATELY DECREASED; PLATELET MORPHOLOGY COMMENT NORMAL; RBC MORPHOLOGY COMMENT NORMAL
[2019-07-22] MEDS: METOPROLOL TARTRATE 50 MG TAB PO SCH ×2 (09:00→21:00)
[2019-07-22] MEDS: DIGOXIN 0.125 MG TAB PO SCH (09:00)
[2019-07-22] MEDS ORDERED: DEXTROSE 5% 1,000 ML IV ONE (10:00)
[2019-07-22 11:30] LABS: CREATININE,URINE RANDOM 87.18 mg/dL (47-110)
[2019-07-22 11:50] LABS: TOTAL PROTEIN, URINE 232.7 mg/dL (1-14)
--- NOTE | 2019-07-22 12:02 | Progress Note ---
DATE: SUBJECTIVE: The patient was seen in consultation by Nephrology. They recommend continuing the bicarb drip and monitoring urine output. Blood cultures are growing out gram-negative rods. The patient is still not responding well, but does open her eyes. PHYSICAL EXAMINATION: VITAL SIGNS: The patient is afebrile. The blood pressure is now 118/60 with the heart rate of 70 to 80 and an irregularly irregular rhythm. HEENT: Shows no facial swelling or erythema. There is a right IJ line in place. The site looks clean. There is no drainage. CARDIAC: Reveals irregularly irregular rhythm with a normal S1, S2. There are no murmurs or rubs heard. CHEST: Auscultation of lungs reveals clear breath sounds bilaterally. There is no wheezing. ABDOMEN: Soft, nontender. There is no rebound or guarding. EXTREMITIES: Show no leg edema or calf tenderness. There is no cyanosis or clubbing. SKIN: Shows no rashes. NEUROLOGIC: Shows the patient did not interact well. She does open her eyes a little bit, but does not follow commands. LABORATORY DATA: White blood cell count is 18.8 and the platelet count is 45. The hemoglobin is 9.7. The BUN to creatinine ratio is 72.23. Carbon dioxide is 21. Other electrolytes are within normal limits. MICROBIOLOGICAL DATA: Blood and urine are growing out E. coli. IMAGING: Chest x-ray shows decreased bilateral pulmonary edema. IMPRESSION: 1. Pyelonephritis with Escherichia Coli bacteremia and severe septic shock, present on admission. 2. Thrombocytopenia, secondary to sepsis. 3. Acute renal failure. 4. Atrial fibrillation. 5. Metabolic encephalopathy. 6. Nephrolithiasis. PLAN: 1. Continue current antibiotics and adjust according to culture results. 2. Continue to monitor urine output and creatinine. 3. Continue low-dose bicarbonate drip. 4. Continue to monitor mental status. The patient may need repeat scan if her interactions do not improve. 5. Continue to wean oxygen as tolerated. 6. Repeat chest x-ray again tomorrow. 7. Case discussed with Nursing, Cardiology, and family. 8. Greater than 35 minutes in direct critical care time. MD LOLI Rios/BERNABE /[id number]
[2019-07-22 14:17] LABS: ABG HCO3 20 mmol/L (23-28); ABG PCO2 26 mmHg (41-51); ABG PO2 89 mmHg (80-105)
[2019-07-22] MEDS: SODIUM BICARBONATE 8.4% 100 ML in DEXTROSE 5% 1,000 ML IV SCH (21:49)
[2019-07-23] VITALS (26 sets, daily range): BP systolic 121–165; BP diastolic 64–131
[2019-07-23] MEDS: CEFEPIME 2 GM/NS 0.9% 100 ML 100 ML IV SCH ×3 (00:03→23:22)
[2019-07-23 05:12] LABS: BASOPHILS % 0.2 % (0.0-1.0); EOSINOPHILS % 0.1 % (0.0-6.0); HEMATOCRIT 29.7 % (34.2-44.1); HEMOGLOBIN 9.4 g/dL (12.0-16.0); LYMPHOCYTES # (AUTO) 0.7 (1.0-3.2); LYMPHOCYTES % 4.1 % (18.0-39.1); MEAN CORPUSCULAR HEMOGLOBIN 28.9 pg (28-32); MEAN CORPUSCULAR HGB CONC 31.6 g/dL (31-35); MEAN CORPUSCULAR VOLUME 91.4 fL (81-99); MONOCYTES # (AUTO) 0.9 (0.2-0.8); MONOCYTES % 5.2 % (4.4-11.3); NEUTROPHILS % 88.8 % (38.7-80.0); RED BLOOD COUNT 3.25 x10e6/uL (3.6-5.1); RED CELL DISTRIBUTION WIDTH 15.9 % (11.7-14.4)
[2019-07-23 05:24] LABS: PLATELET COUNT 47 x10e3/uL (140-360)
[2019-07-23 05:32] LABS: ALBUMIN 2.8 g/dL (3.5-5.0); ALBUMIN/GLOBULIN RATIO 1.1 (0.8-2.0); ANION GAP 14.3 mmol/L (8-16); CALCIUM 8.7 mg/dL (8.4-10.2); CREATININE, SERUM 1.64 mg/dL (0.57-1.11); POTASSIUM 3.3 mmol/L (3.5-5.1)
[2019-07-23 06:44] LABS: LYMPHOCYTES % (MANUAL) 6 % (19-48); MONOCYTES % (MANUAL) 6 % (3.4-9.0); NEUTROPHILS % (MANUAL) 88 % (40-74); PLATELET ESTIMATE MARKEDLY DECREASED; RBC MORPHOLOGY COMMENT NORMAL
[2019-07-23 06:45] LABS: PLATELET MORPHOLOGY COMMENT MODERATE LARGE
[2019-07-23] MEDS ORDERED: POTASSIUM CHLORIDE 20MEQ/100ML 100 ML IV ONE (07:00)
--- NOTE | 2019-07-23 07:25 | NUR ---
ASSESSMENT: Spiritual concern Pt's worried about his 's illness. Pt's states they are members of [facility], [place]. Intervention: Provided hospitality and empathic listening. Facilitated illness review. Provided prayer. Outcome: Pt's expressed appreciation for visit. Will follow as able. COLBY MELGOZA Water/Waste[employer] Engineer Spiritual Care Department O: [phone] Pager: [phone] ([phone] number calling from)
--- NOTE | 2019-07-23 08:45 | Diagnostic Imaging Report ---
EXAMINATION: CHEST SINGLE (PORTABLE) INDICATION: Shortness of breath COMPARISON: Multiple prior chest radiograph, most recently 07/22/2019 FINDINGS: LINES/TUBES:Right IJ central venous catheter terminates in the superior vena cava. EKG leads overlie the chest. LUNGS:The right lung is moderately inflated. Volume loss of the left lung, compatible with left lower lobe atelectasis. PLEURA:No substantial pleural effusion. No pneumothorax. MEDIASTINUM:Cardiomediastinal silhouette is stably enlarged. BONES/SOFT TISSUES:No acute osseous injury. ABDOMEN:No free air under the diaphragm. IMPRESSION: Volume loss in the left lung with left basilar consolidation most likely represents left lower lobe collapse. Superimposed aspiration or pneumonia at the left lung base is possible in the proper clinical setting. Signed by: Bob Suero MD on 07/23/2019 8:41 AM
[2019-07-23] MEDS: METOPROLOL TARTRATE 50 MG TAB PO SCH (09:00)
[2019-07-23] MEDS: DIGOXIN 0.125 MG TAB PO SCH (09:00)
[2019-07-23] MEDS ORDERED: DEXTROSE 5% 100ML 100 ML IV ONE (10:11)
--- NOTE | 2019-07-23 10:43 | Progress Note ---
DATE: Pulmonary Critical Care Progress Note SUBJECTIVE: The patient is urinating better. She still somewhat confused. Her blood pressure has been stable. PHYSICAL EXAMINATION: VITAL SIGNS: The blood pressure is 160/90 and the saturation is 98% on 3 L. The pulse is 83. HEENT: Shows no facial swelling or erythema. CARDIAC: Reveals regular rate and rhythm with normal S1 and S2. LUNGS: Auscultation of lungs shows clear breath sounds bilaterally. There is no wheezing. ABDOMEN: Soft, nontender. There is no rebound or guarding. EXTREMITIES: Show no leg edema or calf tenderness. SKIN: Shows no rashes. NEUROLOGIC: Shows the patient still to be confused and not interacting appropriately. There are no focal abnormalities. LABORATORY DATA: White blood cell count is 16.8 and hemoglobin is 9.4. The platelet count is 47. BUN to creatinine ratio is 75 to 1.64. The potassium is 3.3 and the other electrolytes are within normal limits. IMPRESSION: 1. Pyelonephritis with Escherichia coli bacteremia and severe sepsis, present on admission. 2. Thrombocytopenia. 3. Atrial fibrillation. 4. Acute renal failure. 5. Metabolic encephalopathy. PLAN: 1. The patient should have an MRI of the brain today, because her mental status is not improving as quickly as anticipated. 2. Stop bicarbonate. 3. Continue current antibiotics. 4. Wean oxygen as tolerated. 5. Case discussed with Nursing, Nephrology, and family. Leland Lawler MD [facility]/JAML /[id number]
--- NOTE | 2019-07-23 12:10 | NUR ---
Dr Hodges to bedside; orders rec'd to consult Dr Sarah, neurologist.
[2019-07-23] MEDS: D5.45%NS/KCL 20MEQ 1,000 ML IV SCH (19:37)
[2019-07-24] VITALS (26 sets, daily range): BP systolic 108–168; BP diastolic 57–103
[2019-07-24 05:35] LABS: BASOPHILS # (AUTO) 0.1 (0.0-0.1); BASOPHILS % 0.8 % (0.0-1.0); EOSINOPHILS # (AUTO) 0.1 (0.0-0.4); EOSINOPHILS % 0.7 % (0.0-6.0); HEMATOCRIT 33.5 % (34.2-44.1); HEMOGLOBIN 10.7 g/dL (12.0-16.0); LYMPHOCYTES # (AUTO) 0.9 (1.0-3.2); LYMPHOCYTES % 6.8 % (18.0-39.1); MEAN CORPUSCULAR HEMOGLOBIN 29.4 pg (28-32); MEAN CORPUSCULAR HGB CONC 31.9 g/dL (31-35); MONOCYTES # (AUTO) 1.4 (0.2-0.8); NEUTROPHILS # (AUTO) 10.1 (2.1-6.9); NEUTROPHILS % 77.5 % (38.7-80.0); PLATELET COUNT 52 x10e3/uL (140-360); RED BLOOD COUNT 3.64 x10e6/uL (3.6-5.1); RED CELL DISTRIBUTION WIDTH 15.9 % (11.7-14.4)
[2019-07-24 06:13] LABS: ALBUMIN 2.7 g/dL (3.5-5.0); ANION GAP 11.4 mmol/L (8-16); CALCIUM 8.9 mg/dL (8.4-10.2); CREATININE, SERUM 0.99 mg/dL (0.57-1.11); POTASSIUM 3.4 mmol/L (3.5-5.1)
--- NOTE | 2019-07-24 06:33 | Consultation ---
DATE OF CONSULTATION: 07/23/2019 Neurology Consult Note HISTORY OF PRESENT ILLNESS: Ms. Lynn is an 83-year-old right-hand dominant woman with past medical history significant for hypertension, atrial fibrillation, and breast cancer, currently in remission, admitted to [facility] on July 19, 2019, with multiple medical problems. On the day of admission, Ms. Lynn had reportedly been unresponsive for several hours. According to the patient's daughter, who is at the bedside, Ms. Lynn's thought she was sleeping. However, when the patient's daughter came to her home later the same evening, she had great difficulty awakening the patient. When the patient did arouse, she would not speak. She would simply turn over and tried to go back to sleep. Concerned about her mother's decreased level of responsiveness, Ms. Lynn was brought to the emergency center at [facility] by her daughter for further evaluation of her symptoms. Upon arrival in the emergency center, the patient was febrile with a rectal temperature of 103.4. She was hypotensive with a blood pressure of 97/74 mmHg. Ms. Lynn was found to be tachycardic as well with a heart rate of 127 beats per minute. Other than encephalopathy, there were no other abnormal findings on the patient's neurological examination. An electrocardiogram revealed the patient to be in atrial fibrillation with a rapid ventricular response. Routine laboratory data revealed an elevated BUN and creatinine, elevated lactic acid, elevated B-natriuretic peptide, and a mildly elevated white blood cell count with a left shift. A urinalysis reveals slightly cloudy urine with positive nitrites and many bacteria. Ms. Lynn was subsequently admitted to [facility] as an inpatient for further evaluation and treatment of the aforementioned. Ms. Lynn was found to have a renal calculus obstructing the left ureter, resulting in hydronephrosis of the left kidney. The patient is status post placement of a left ureteral shunt by Dr. Boateng. As indicated above, Ms. Lynn was septic upon admission. Both blood and urine cultures grew Escherichia coli. At present, the patient is receiving intravenous antibiotics for treatment of blood and urine infections. As stated above, the patient has been encephalopathic throughout her hospitalization. However, according to the patient's daughter and multiple hospital staff, her encephalopathy has gradually improved. Earlier today, the patient was awake and alert and oriented to person. REVIEW OF SYSTEMS: Unable to obtain secondary to the patient being encephalopathic. PAST MEDICAL HISTORY: Hypertension; atrial fibrillation; breast cancer. Status post surgery and radiation therapy, but no chemotherapy, currently in remission. PAST SURGICAL HISTORY: Right lymph node dissection, tonsillectomy, left ureteral stent placement. PAST HOSPITALIZATIONS: Surgeries/procedures as listed, childbirth x4, pelvic fracture with nonsurgical healing. FAMILY MEDICAL HISTORY: Cancer. SOCIAL HISTORY: Ms. Lynn is . She is retired. There is no reported current or prior tobacco, alcohol, or recreational drug use. HOME MEDICATIONS: Digoxin 0.125 mg by mouth daily, hydrochlorothiazide 25 mg by mouth daily, isosorbide mononitrate 30 mg by mouth daily, lovastatin 20 mg by mouth daily, meloxicam 7.5 mg by mouth at bedtime daily, metoprolol tartrate 50 mg by mouth 3 times daily, potassium chloride 20 mEq by mouth daily, Xarelto 15 mg by mouth daily. HOSPITAL MEDICATIONS: Cefepime, Haldol, and intravenous fluids. ALLERGIES: PENICILLIN, CLINDAMYCIN. NO KNOWN FOOD ALLERGIES. NO KNOWN ALLERGIES TO LATEX. NO KNOWN ALLERGIES TO IODINE OR OTHER CONTRAST MATERIALS. PHYSICAL EXAMINATION: VITAL SIGNS: Height 64 inches, weight 170 pounds, BMI 29.2 kg/m2. Blood pressure 121/64 mmHg, pulse 52 beats per minute, respiratory rate 14 breaths per minute, and oxygen saturation 100% on 2 L by nasal cannula. GENERAL: The patient is awake and alert, does not appear distressed. Overweight. HEENT: Normocephalic, atraumatic. Pupils are surgical. Moist mucous membranes. NECK: Supple. No appreciable thyromegaly. No appreciable carotid bruits. CARDIOVASCULAR: S1 and S2, regular rate and rhythm. No murmurs, rubs, or gallops. RESPIRATORY: Clear to auscultation bilaterally. No wheezes, rhonchi, or rales. EXTREMITIES: The skin is warm and dry. No clubbing, cyanosis, or edema. The posterior tibial and dorsalis pedis pulses are 2+ and symmetric. SKIN: Covered wounds over the feet. NEUROLOGIC: MEMORY/ATTENTION: The patient is awake and alert. She does not answer orientation questions. Ms. Lynn intermittently follows simple commands. CRANIAL NERVES: Cranial nerve I-not tested. Cranial nerves II, III, IV, and -pupils are surgical. Extraocular movements intact. No nystagmus. Cranial nerve V- sensation to light touch is grossly intact in the bilateral V1 through V3 distributions. Strength of the temporalis and masseter muscles is within normal limits. Cranial nerve VII-the face is symmetric as are all facial movements. Strength is within normal limits. Cranial nerve VIII-hearing is intact to voice bilaterally. Cranial nerve IX, X- the soft palate elevates equally and symmetrically. Cranial nerve XI-normal strength of the bilateral sternocleidomastoid and trapezius muscles. Cranial nerve XII-the tongue protrudes midline and moves symmetrically from [id number]. STRENGTH: Bulk is normal. The patient is unable to participate in a formal assessment of strength. She moves both arms and both legs spontaneously and symmetrically. Tone is normal. DTRS: Deep tendon reflexes are 2+ and symmetric at the triceps, biceps, brachioradialis, and patellas. Deep tendon reflexes are absent and symmetric at the Achilles. Plantar responses are flexor bilaterally. SENSATION: Sensation is grossly intact to light touch in both arms and both legs. CEREBELLAR: Unable to assess as the patient is encephalopathic and unable to follow complex instructions. GAIT: Deferred. SPEECH: Spontaneous speech is severely dysarthric without aphasia. Repetition is not intact. INVOLUNTARY MOVEMENTS: None. PRONATOR DRIFT: As per motor exam. LABORATORY DATA: The most recent comprehensive metabolic panel is significant for potassium of 3.3, BUN of 75, creatinine of 1.64, estimated GFR of 30, glucose of 149, total bilirubin of 1.7, AST of 42, total protein of 5.3, and albumin of 2.8. A TSH collected on July 19, 2019, was 1.268. Lactic acid 56.0, 35.3, 57.5. Amylase and lipase were 31 and 14, respectively, on July 19, 2019. Most recent CBC with differential and platelets reveals an elevated white blood cell count of 16.84 with a left shift with 88.8% neutrophils, 4.1% lymphocytes, 5.2% monocytes, 0.1% eosinophils, and 0.2% basophils. The hemoglobin and hematocrit are 9.4 and 29.7, respectively. The platelet count is 47. From July 19, 2019, PT is 7.3, INR is 1.35, and PTT is 28.9. An arterial blood gas from on July 22, 2019, revealed a pH of 7.50, pCO2 of 26, PO2 of 89, bicarbonate of 20, O2 saturation of 98.0, base excess of -3.0, and FiO2 of 32. A urinalysis collected on July 19, 2019, revealed slightly cloudy urine with 1+ protein, trace ketones, positive nitrites, and many urine bacteria with no urine epithelial cells. A urine random total protein was 232.7. Urine random sodium was 41. Urine creatinine 87.18. Protein and creatinine ratio 2.00. Digoxin less than 0.30 on July 19, 2019, 2.37 on July 22, 2019. Blood and urine cultures collected on July 19, 2019, grew Escherichia coli. DIAGNOSTIC STUDIES: Electrocardiogram on 07/19/2019: Atrial fibrillation with rapid ventricular response at 131 beats per minute. Chest x-ray on 07/19/2019: Cardiomegaly and pulmonary vascular congestion. CT of the brain without contrast on 07/19/2019: On my review, there is no evidence of recent or remote large territorial ischemia, hemorrhage, mass, or mass effect. There is mild diffuse cerebral atrophy with compensatory dilatation of the ventricles, appropriate for the patient's age. There are findings compatible with [id number] chronic small-vessel ischemic disease. A calcified extra-axial mass near the left lesser wing of the sphenoid probably represents a meningioma. ASSESSMENT AND PLAN: Ms. Lynn is an 83-year-old right-hand dominant woman with past medical history as detailed, admitted to [facility] on July 19, 2019, with sepsis with Escherichia coli grown from both the urine and blood cultures as well as obstruction of the left ureter, prior renal calculus resulting in hydronephrosis of the left kidney. Ms. Lynn is status post left ureteral stent placement by Dr. Boateng. Other than encephalopathy, there are no focal findings on the patient's neurological examination. Her laboratory data and other diagnostic studies have been reviewed and are documented above. In my opinion, Ms. Lynn has a multifactorial metabolic encephalopathy secondary to infection, acute kidney injury, and possibly medication effect (Haldol). RECOMMENDATIONS: Are as follows: 1. Continue intravenous antibiotics for infection. 2. Continue gentle hydration with D5W with 2 amps of bicarbonate at 50 mL/h. 3. Limit treatment with sedative/hypnotic and pain medication as these will alter the patient's sensorium. 4. Utilize environmental cues to limit delirium. 5. Ms. Lynn will be monitored clinically for continued improvement of her encephalopathy. 6. Defer treatment of the remaining medical comorbidities to the primary and other services following the patient. Thank you for this consultation. There are no other recommendations from the Neurology Service at this time. I will continue to follow the patient peripherally while she remains in the hospital. TIME SPENT: 50 minutes. Floresita Sarah MD CP/MODL /[id number] MTDD
--- NOTE | 2019-07-24 10:18 | NUR ---
ASSESSMENT: Spiritual concern Pt's daughter, Lee Ann, thankful for mother's improvement. Intervention: Provided hospitality, empathic listening and facilitated storytelling. Outcome: Will continue to follow as able. COLBY MELGOZA Service Restorer Emergency Spiritual Care Department O: [phone] Pager: [phone] ([phone] number calling from)
[2019-07-24] MEDS: CEFEPIME 2 GM/NS 0.9% 100 ML 100 ML IV SCH ×2 (10:45→22:49)
[2019-07-24 10:51] LABS: LYMPHOCYTES % (MANUAL) 8 % (19-48); MONOCYTES % (MANUAL) 12 % (3.4-9.0); NEUTROPHILS % (MANUAL) 80 % (40-74); PLATELET ESTIMATE MARKEDLY DECREASED
[2019-07-24 10:52] LABS: PLATELET MORPHOLOGY COMMENT FEW LARGE; RBC MORPHOLOGY COMMENT NORMAL
[2019-07-24] MEDS: D5.45%NS/KCL 20MEQ 1,000 ML IV SCH (15:13)
--- NOTE | 2019-07-24 16:01 | Progress Note ---
DATE: Pulmonary Critical Care Progress Note SUBJECTIVE: The patient is more alert. She seems improved. She is not having fever. OBJECTIVE: VITAL SIGNS: Stable. HEENT: Shows no facial swelling or erythema. CARDIAC: Reveals regular rate and rhythm with normal S1 and S2. LUNGS: Auscultation of lungs reveals rhonchorous breath sounds bilaterally. There is no wheezing. ABDOMEN: Soft and nontender. There is no rebound or guarding. EXTREMITIES: Shows no leg edema or calf tenderness. There is no cyanosis or clubbing. SKIN: Shows no rashes. LABORATORY DATA: White blood cell count is 12.9 and hemoglobin is 10.7. The platelet count is 52. BUN to creatinine ratio is 58 to 0.99. The other electrolytes are within normal limits. Total bilirubin is 1.7. IMPRESSION: 1. Pyelonephritis with Escherichia coli bacteremia and severe sepsis, present on admission. 2. Metabolic encephalopathy. 3. Thrombocytopenia. 4. Atrial fibrillation. 5. Acute renal failure. PLAN: 1. Continue current antibiotics. 2. Continue to monitor neurological status. 3. Continue to monitor platelet count. 4. Physical therapy. Leland Lawler MD [facility]/MODL /[id number]
[2019-07-24] MEDS ORDERED: POTASSIUM CHLORIDE 20MEQ/15ML UDC NG ONE (18:45)
--- NOTE | 2019-07-24 18:57 | NUR ---
Patient more alert today per family members. Patient passed swallow evaluation. Speech therapy recommended a mechanical soft diet with thin liquids. Dr. Hodges upon rounding informed of diet recommendation and MD like LTAC eval and physical therapy evaluation. Pt ambulated in hallway with physical therapy and is tolerating cardiac diet. Case management recommended SNF evaluation instead of LTAC, orders changed to SNF evaluation. Dr. Freeman d/c IV fluids and ordered potassium replacement. Pt had three small soft bowel movements during the shift.
[2019-07-25] VITALS (14 sets, daily range): BP systolic 138–162; BP diastolic 62–112
[2019-07-25 05:11] LABS: BASOPHILS % 0.3 % (0.0-1.0); EOSINOPHILS # (AUTO) 0.2 (0.0-0.4); HEMATOCRIT 34.7 % (34.2-44.1); HEMOGLOBIN 10.8 g/dL (12.0-16.0); LYMPHOCYTES % 6.9 % (18.0-39.1); MEAN CORPUSCULAR HGB CONC 31.1 g/dL (31-35); MONOCYTES # (AUTO) 1.6 (0.2-0.8); MONOCYTES % 10.6 % (4.4-11.3); NEUTROPHILS # (AUTO) 10.8 (2.1-6.9); NEUTROPHILS % 71.8 % (38.7-80.0); PLATELET COUNT 73 x10e3/uL (140-360); RED BLOOD COUNT 3.73 x10e6/uL (3.6-5.1); RED CELL DISTRIBUTION WIDTH 15.9 % (11.7-14.4)
[2019-07-25 05:26] LABS: ANION GAP 11.6 mmol/L (8-16); BLOOD UREA NITROGEN 44 mg/dL (7-26); BUN/CREATININE RATIO 56 (6-25); CALCIUM 8.9 mg/dL (8.4-10.2); CARBON DIOXIDE 26 mmol/L (22-29); CHLORIDE 109 mmol/L (98-107); CREATININE, SERUM 0.78 mg/dL (0.57-1.11); EST GLOMERULAR FILTRATION RATE > 60 ML/MIN (60-); GLUCOSE 94 mg/dL (74-118); POTASSIUM 3.6 mmol/L (3.5-5.1); SODIUM 143 mmol/L (136-145)
--- NOTE | 2019-07-25 07:20 | NUR ---
ASSESSMENT: Spiritual concern Pt's worried about 's illness. Pt's states his is confused and "wants to know why she is in the hospital." Pt's states their son from [place] is "coming down to see his mother." Intervention: Provided empathic listening. Outcome: Will continue to follow as able. COLBY MELGOZA Diabetes Manager Spiritual Care Department O: [phone] Pager: [phone] ([phone] number calling from)
[2019-07-25 08:13] LABS: EOSINOPHILS % (MANUAL) 1 % (0-7); LYMPHOCYTES % (MANUAL) 7 % (19-48); MONOCYTES % (MANUAL) 12 % (3.4-9.0); NEUTROPHILS % (MANUAL) 80 % (40-74); PLATELET ESTIMATE MARKEDLY DECREASED; PLATELET MORPHOLOGY COMMENT FEW LARGE; RBC MORPHOLOGY COMMENT NORMAL
--- NOTE | 2019-07-25 11:10 | Progress Note ---
DATE: SUBJECTIVE: The patient feels better. She is more alert. She is urinating well. Her creatinine has returned to normal. PHYSICAL EXAMINATION: VITAL SIGNS: The patient is afebrile. The vital signs are stable. HEENT: Shows no facial swelling or erythema. CARDIAC: Reveals a regular rate and rhythm with a normal S1 and S2. There are no murmurs or rubs heard. LUNGS: Auscultation of lungs shows clear breath sounds bilaterally. There is no wheezing. ABDOMEN: Soft, nontender. There is no rebound or guarding. EXTREMITIES: Show no leg edema. IMPRESSION: 1. Pyelonephritis with history of Escherichia coli bacteremia and severe sepsis, present on admission. 2. Metabolic encephalopathy. 3. Thrombocytopenia. 4. Atrial fibrillation. 5. Acute renal failure. PLAN: 1. Transfer out of Intensive Care Unit. 2. Continue to monitor neurological status. 3. Continue to monitor platelet count. 4. Restart Xarelto because of atrial fibrillation, when okay with Cardiology and Neurology. 5. Physical therapy. Leland Lawler MD [facility]/MODL /[id number]
--- NOTE | 2019-07-25 11:30 | NUR ---
Report given to CECILIA Bolton for 197.
--- NOTE | 2019-07-25 12:00 | NUR ---
Pt received in bed with at bedside. Emotional support given. Oriented to staff and surroundings. Call mccormick within reach. Will monitor
--- NOTE | 2019-07-25 12:20 | NUR ---
Patient transported to Room 197.
--- NOTE | 2019-07-25 12:23 | NUR ---
SPOKE WITH PT ABOUT SNF, CAME IN AND HE REQUESTS THAT I RETURN WHEN PORSHA AND HIS SON GET HERE. LET KNOW ABOUT ORDER AND STATES HE WILL LET THEM KNOW AND BE ABLE DISCUSS OPTIONS WHEN I RETURN.
[2019-07-25] MEDS: CEFEPIME 2 GM/NS 0.9% 100 ML 100 ML IV SCH ×2 (12:38→23:45)
--- NOTE | 2019-07-25 16:28 | NUR ---
Nutrition Screen Note RD Recommendation for Physician: - Continue current diet Plan of Care: RD following Nutrition reason for involvement: follow up Primary Diagnose(s): Chronic atrial fibrillation, fever, acute kidney injury secondary to acute tubular necrosis from severe urinary tract infection. PMH: Breast cancer, chronic atrial fibrillation, HTN, HLD, COPD Ht: 64in Wt: 171lbs BMI: 29.34 kg/m2 IBW: 120lb +/- 10% RD Assessment: 07/25- Pt reports good appetite and po intake, states "I've been eating too much." Pt denies any abdominal pain or N/V/C/D. Pt with no questions or concerns at time of visit. Pt discussed during am rounds, RN reports good po intake. Labs and meds reviewed. Will monitor and continue to follow. (07/21) Chart reviewed. Labs and meds reviewed. 83 y/o F admitted to ICU for abdominal pain and altered mental status. Pt dx with acute kidney injury secondary to acute tubular necrosis from severe urinary tract infection and acidosis. Chest x-ray showed cardiomegaly with bilateral interstitial edema. Patient sleeping during time of visit, currently NPO (day 2). Per pt nurse, no plans of feeding at this time, pending further evaluation and MD discretion due to current medical status. Patient has been on nasal cannula and BiPAP machine as needed, unable to obtain information from patient. Pt family at bedside able to provide brief nutrition related information. Family reported patient eating regularly at home, denied any hx of any recent significant weight changes, N/V/D/C or difficulties with chewing or swallowing. Will continue to monitor and follow. Current Diet: Cardiac, mechanical soft Malnutrition Evaluation (07/21) The patient does not meet criteria for a specified degree of malnutrition at this time. Will re-evaluate at follow-up as appropriate. RD unable to assess. Diet Education Needs Assessment: Diet education not indicated. Nutrition Care Level: Low Signed: Josselin Singh RD, LD, [facility]
--- NOTE | 2019-07-25 17:28 | NUR ---
SPOKE WITH ENTIRE FAMILY CHOSE [facility] TO [phone] COMPLETED PASRR AND RTF FOR TRANSFER REQUEST
--- NOTE | 2019-07-25 19:12 | NUR ---
Handoff given to oncoming RN. Pt resting in bed. Call mccormick within reach
--- NOTE | 2019-07-25 19:23 | NUR ---
Dr. Mele Giles called regarding removing Cline catheter because pt will be going to [facility] in AM. Dr. Giles stated that Cline can be pulled. Endorsed to oncoming shift
--- NOTE | 2019-07-25 20:49 | NUR ---
Per Dr. Boateng and day shift RN, dorene to remove durbin. Durbin removed @ 2029 with 100 ml in bag. Page care performed. Pt ready to transfer to [facility], vital signs stable. BP 148/67, HR 94, O2 95% on RA, RR 32-normal range for pt, no signs of labored breathing or SOB per pt.
[2019-07-26 04:00] VITALS: BP 161/73
--- NOTE | 2019-07-26 05:45 | NUR ---
Received call from tele patient's HR fluctuating from 116-160. Patient sitting up on side of bed, asymptomatic. Denies pain, discomfort, or SOB. Denies dizziness or palpitations. No diaphoresis noted. Call mccormick within reach. Will continue to monitor.
--- NOTE | 2019-07-26 05:58 | NUR ---
Spoke with Dr. Hodges, ordered digoxin 0.5mg IV x1.
[2019-07-26] MEDS ORDERED: DIGOXIN INJ 0.25 MG/ML 2 ML AMP IV ONE (06:00)
--- NOTE | 2019-07-26 06:27 | NUR ---
admin digoxin 0.5mg IV x1
--- NOTE | 2019-07-26 06:30 | NUR ---
HR 72. Assisted patient from bedside commode back to bed, BM x1. No acute distress noted. Bed alarm on. Call mccormick within reach.
--- NOTE | 2019-07-26 06:45 | NUR ---
received report from night auditor RN, pt resting in bed, awake, alert, no distress noted, call light within reach, will continue to assess.
[2019-07-26 08:01] VITALS: BP 147/74
[2019-07-26 09:17] VITALS: BP 147/74
[2019-07-26 11:43] VITALS: BP 131/78
[2019-07-26] MEDS: CEFEPIME 2 GM/NS 0.9% 100 ML 100 ML IV SCH (12:20)
--- NOTE | 2019-07-26 14:24 | NUR ---
HALF-WAY FACILITY DISCHARGE INFORMATION PATIENT HAS BEEN ACCEPTED TO: NAME: FRANCISCO RODRIGUES ADDRESS: [address] [place] [id number] ACCEPTING MD: JORDAN ROOM: 211A NURSE CALL REPORT TO: [phone] THE FOLLOWING DOCUMENTS MUST ACCOMPANY PATIENT FOR TRANSFER: COPIED CHART: PASRR AND CLINICALS
--- NOTE | 2019-07-26 14:55 | NUR ---
EDUCATED ABOUT IMM, SIGNED, FILED IN CHART, WITH COPY LEFT WITH FAMILY AT BEDSIDE.
[2019-07-26 16:00] VITALS: BP 144/70
--- NOTE | 2019-07-26 16:31 | NUR ---
gave report to nurse at [facility], pt awake, alert, in stable condition.
[2019-07-26] MEDS ORDERED: METOPROLOL TARTRATE 25 MG TAB PO SCH (17:00)
[2019-07-26] MEDS ORDERED: RIVAROXABAN 15 MG TABLET PO SCH (17:00)
--- NOTE | 2019-07-26 17:04 | Progress Note ---
DATE: SUBJECTIVE: The patient was transferred out of Intensive Care Unit. She is more alert and conversant. She is walking with the assistance of a walker. PHYSICAL EXAMINATION: VITAL SIGNS: The patient is afebrile. The blood pressure is 131/78 and the pulse is 97. HEENT: Shows no facial swelling or erythema. CARDIAC: Reveals regular rate and rhythm with normal S1, S2. LUNGS: Auscultation of lungs reveals clear breath sounds bilaterally. There is no wheezing. ABDOMEN: Soft, nontender. There is no rebound or guarding. EXTREMITIES: Show no leg edema or calf tenderness. There is no cyanosis or clubbing. SKIN: Shows no rashes. IMPRESSION: 1. Pyelonephritis with Escherichia coli bacteremia and severe sepsis, present on admission. 2. Metabolic encephalopathy. 3. Thrombocytopenia. 4. Pulmonary edema. 5. Acute renal failure. 6. Atrial fibrillation. PLAN: 1. Repeat chest x-ray tomorrow. 2. Continue antibiotics. 3. Continue to monitor platelet count. 4. Continue current therapy for atrial fibrillation. 5. Physical therapy. Leland Lawler MD [facility]/MODL /[id number]
== END 2019-07-26 19:50 | DRG 853 ==
LOC: ER 20:08 → ERHOLD 23:45 → ICU 07-20 05:00 → IMCU 07-25 12:19 → MED/SURG3 07-25 21:11
PROVIDERS: ADMIT Internal Medicine Cardiovascular Disease; ATTEND Internal Medicine Cardiovascular Disease
PROC: 0TC18ZZ Extirpation of Matter from Left Kidney, Via Natural or Artificial Opening Endoscopic (ICD-10-PCS; 2019-07-20)
PROC: 0T778DZ Dilation of Left Ureter with Intraluminal Device, Via Natural or Artificial Opening Endoscopic (ICD-10-PCS; 2019-07-20)
PROC: 0T788DZ Dilation of Bilateral Ureters with Intraluminal Device, Via Natural or Artificial Opening Endoscopic (ICD-10-PCS; 2019-07-20)
PROC: 0T788ZZ Dilation of Bilateral Ureters, Via Natural or Artificial Opening Endoscopic (ICD-10-PCS; 2019-07-20)
PROC: BT141ZZ Fluoroscopy of Kidneys, Ureters and Bladder using Low Osmolar Contrast (ICD-10-PCS; 2019-07-20)
PROC: 02HV33Z Insertion of Infusion Device into Superior Vena Cava, Percutaneous Approach (ICD-10-PCS; principal; 2019-07-21)
DX: A41.51 Sepsis due to Escherichia coli [E. coli] (principal); R65.21 Severe sepsis with septic shock; G93.41 Metabolic encephalopathy; I50.33 Acute on chronic diastolic (congestive) heart failure; N17.0 Acute kidney failure with tubular necrosis; N10 Acute pyelonephritis; N39.0 Urinary tract infection, site not specified; N13.30 Unspecified hydronephrosis; I13.0 Hypertensive heart and chronic kidney disease with heart failure and stage 1 through stage 4 chronic kidney disease, or unspecified chronic kidney disease; D68.8 Other specified coagulation defects; B96.20 Unspecified Escherichia coli [E. coli] as the cause of diseases classified elsewhere; Z85.3 Personal history of malignant neoplasm of breast; K59.09 Other constipation; I48.2 Chronic atrial fibrillation; Z79.01 Long term (current) use of anticoagulants; E78.5 Hyperlipidemia, unspecified; I27.20 Pulmonary hypertension, unspecified; Z90.12 Acquired absence of left breast and nipple; E87.6 Hypokalemia; E83.51 Hypocalcemia; T45.515A Adverse effect of anticoagulants, initial encounter; N39.46 Mixed incontinence; D69.59 Other secondary thrombocytopenia; N18.3 Chronic kidney disease, stage 3 (moderate); E11.22 Type 2 diabetes mellitus with diabetic chronic kidney disease; N89.8 Other specified noninflammatory disorders of vagina; N95.2 Postmenopausal atrophic vaginitis
CPT/HCPCS: 36415; 36600; 51700; 70450; 71045; 74176; 74420; 80048; 80053; 80162; 81001; 82150; 82550; 82553; 82570; 82805; 83605; 83690; 83735; 83880; 84156; 84300; 84443; 84484; 85025; 85610; 85730; 87040; 87071; 87086; 87186; 87205; 93005; 94660; 97139; 99285; C2617; J0171; J1160; J1630; J1940; J2001; J2270; J2370; J2405; J3010; J3370; J3480; J7030; J7070; P9047

== ENCOUNTER → 2019-10-18 | Outpatient (CLI) | payer MEDICARE ==
[~2019-10-18] MED LIST changes: +DIGOXIN125 MCG PO; +ISOSORBIDE MONO30 MG PO; +MELOXICAM7.5 MG PO; +METOPROLOL TART50 MG PO; +POTASSIUM CHLO20 ME1 PO; +VITAMIN C 250250 MG PO; +VITAMIN D 3 PO
--- NOTE | 2019-10-18 08:56 | Diagnostic Imaging Report ---
Abdomen, 1 view. History: Renal calculus. Comparison: 09/13/2019. Findings: Bilateral internal ureteral stents are unchanged in position. A 3 mm calcification is seen just lateral to the proximal loop of the left internal ureteral stent. Calcified phleboliths are present in the pelvis. Air is scattered throughout nondilated small and large bowel. There are no masses or abnormal calcifications. Old left pubic rami fractures are again noted. IMPRESSION: Non-specific bowel gas pattern. Possible small left renal calculus. Internal ureteral stents without change. Signed by: Anirudh Pedroza on 10/18/2019 8:53 AM
== END ==
LOC: RAD 08:12
PROVIDERS: ATTEND Urology
DX: N20.0 Calculus of kidney (principal)
CPT/HCPCS: 74018

== ENCOUNTER 2020-02-10 16:32 | Emergency (ER) | payer MEDICARE ==
[~2020-02-10] VITALS: Ht 167.6 cm; Wt 79.4 kg
--- NOTE | 2020-02-10 17:10 | Diagnostic Imaging Report ---
History:Fall Comparison studies: None Technique: Axial images were obtained from the skull base to the vertex. Coronal and sagittal images reconstructed from the axial data. Dose modulation, iterative reconstruction, and/or weight based adjustment of the mA/kV was utilized to reduce the radiation dose to as low as reasonably achievable. Intravenous contrast: None Findings: Scalp/skull: No abnormalities. Extra-axial spaces: No masses. No fluid collections. Brain sulci: Mildly prominent. Ventricles: Mild compensatory dilatation. No hydrocephalus. Parenchyma: Ill-defined, confluent hypodensities in the supratentorial white matter are small vessel ischemic changes. No masses, hemorrhage, acute or chronic cortical vascular insults. Sellar/suprasellar region: No abnormalities. Craniocervical junction: Patent foramen magnum. No Chiari one malformation. Incidental findings: * Coarse atherosclerotic calcifications in the carotid siphons . * 1 cm extra-axial heavily calcified extra-axial along the greater wing of the left ureter probably an incidental meningioma series 8, image 8. Impression: No acute abnormalities. Chronic findings: 1. Mild generalized volume loss. 2. Moderate supratentorial white matter small vessel ischemic changes. Signed by: Dr. Soham Diego M.D. on 02/10/2020 5:07 PM
[2020-02-10] MEDS ORDERED: LIDOCAINE 1% 5ML-MPF INJ ONE (17:15)
[2020-02-10] MEDS ORDERED: TETANUS/DIPHTHERIA TOX ADULT 0.5 ML SYR IM ONE (17:15)
[2020-02-10] MEDS ORDERED: NEOMYCIN/POLYMYX/BACITR OINT 0.9 GM PKT TOP ONE (17:15)
--- NOTE | 2020-02-10 17:23 | Diagnostic Imaging Report ---
History: Fall Comparison studies: None Technique: Axial images were obtained through the cervical region.. Coronal and sagittal images reconstructed from the axial data. Dose modulation, iterative reconstruction, and/or weight based adjustment of the mA/kV was utilized to reduce the radiation dose to as low as reasonably achievable. Intravenous contrast: None Findings: Fractures: None. Soft tissues: No gross abnormalities. Atlantoaxial articulation: Moderately degenerated. Alignment: Straightening of the usual lordosis probably positional. 2 mm anterolisthesis of C3-C4 on C5. No scoliosis. Cervicomedullary junction: No abnormalities. The foramen magnum is patent. Vertebrae: Moderately demineralized. No infection or neoplasm. Degenerative changes: * Mildly degenerated discs from C2 through C3, worse at C5-6 and C6-7. * Mild spinal canal stenosis at C5-6 and C6-7 due to disc osteophyte complexes. * Foraminal stenosis, severe right C4-5, moderate bilaterally at C5-6 due to facet and uncoarthrosis. * Additional facet arthrosis on the right at C7-T1 Incidental finding: Subtle atherosclerotic calcifications in the aortic arch, carotid bulb carotid siphons and vertebral arteries. IMPRESSION: 1. No acute abnormalities. 2. No fractures or subluxations. 3. Cannot adequately evaluate for ligament, spinal cord and or vascular abnormalities. 4. Degenerative changes as described. Signed by: Dr. Soham Diego M.D. on 02/10/2020 5:20 PM
[2020-03-06] MEDS ORDERED: HYDROCHLOROTHIA25 MG PO (15:03)
[2020-03-06] MEDS ORDERED: KLOR-CON M2020 MEQ PO (15:03)
== END 2020-02-10 17:29 | disposition home or self-care (01) ==
LOC: ER 16:32
DX: S01.81XA Laceration without foreign body of other part of head, initial encounter (principal); W01.0XXA Fall on same level from slipping, tripping and stumbling without subsequent striking against object, initial encounter; Y93.01 Activity, walking, marching and hiking; Y92.008 Other place in unspecified non-institutional (private) residence as the place of occurrence of the external cause; I10 Essential (primary) hypertension; E78.5 Hyperlipidemia, unspecified; I48.91 Unspecified atrial fibrillation
CPT/HCPCS: 70450; 72125; 90471; 90714; 99282

== ENCOUNTER → 2020-03-12 | Day surgery (SDC) | payer MEDICARE ==
--- NOTE | 2020-03-07 11:16 | Diagnostic Imaging Report ---
EXAMINATION: CHEST 2 VIEWS INDICATION: Pre-operative COMPARISON: Chest radiograph 09/13/2019 FINDINGS: LINES/TUBES:None LUNGS:The lungs are hyperinflated. Upper lobe emphysematous changes. Left basilar subsegmental atelectasis. No focal pneumonia or pulmonary edema. PLEURA:No pleural effusion or pneumothorax. MEDIASTINUM:Cardiomediastinal silhouette is stably enlarged. Atherosclerotic calcifications of the thoracic aorta. BONES/SOFT TISSUES:No acute osseous injury. ABDOMEN:No free air under the diaphragm. IMPRESSION: Hyperinflated lungs with emphysematous changes. No focal pneumonia or pulmonary edema. Signed by: Bob Suero MD on 03/07/2020 11:12 AM
--- NOTE | 2020-03-07 11:18 | Diagnostic Imaging Report ---
Exam: KUB - 2 views Indication: Preoperative Comparison: KUB of 10/18/2019 Findings: Bilateral internal nephroureteral stents in place. Compared to the prior KUB of 10/18/2019, the proximal loops of both stents appear to have developed associated calcification, more significant on the left than on the right renal calculi have increased in size, now measuring up to 9 mm on the right and 6 mm on the left. Nonobstructive bowel gas pattern. No free air. No acute osseous injury. Degenerative changes of the visualized spine. Impression: Interval development of calcifications associated with the proximal loops of the internal nephroureteral stents left greater than right. Interval increase in size of bilateral renal calculi. Signed by: Bob Suero MD on 03/07/2020 11:15 AM
[2020-03-07 11:34] LABS: BASOPHILS # (AUTO) 0.1 (0.0-0.1); BASOPHILS % 1.2 % (0.0-1.0); EOSINOPHILS # (AUTO) 0.1 (0.0-0.4); EOSINOPHILS % 2.1 % (0.0-6.0); HEMATOCRIT 36.5 % (34.2-44.1); HEMOGLOBIN 11.1 g/dL (12.0-16.0); LYMPHOCYTES # (AUTO) 1.6 (1.0-3.2); LYMPHOCYTES % 26.9 % (18.0-39.1); MEAN CORPUSCULAR HEMOGLOBIN 27.3 pg (28-32); MEAN CORPUSCULAR HGB CONC 30.4 g/dL (31-35); MEAN CORPUSCULAR VOLUME 89.9 fL (81-99); MONOCYTES # (AUTO) 0.5 (0.2-0.8); MONOCYTES % 8.1 % (4.4-11.3); NEUTROPHILS # (AUTO) 3.6 (2.1-6.9); NEUTROPHILS % 61.5 % (38.7-80.0); PLATELET COUNT 269 x10e3/uL (140-360); RED BLOOD COUNT 4.06 x10e6/uL (3.6-5.1); RED CELL DISTRIBUTION WIDTH 15.9 % (11.7-14.4)
[2020-03-07 11:47] LABS: BLOOD UREA NITROGEN 25 mg/dL (7-26); BUN/CREATININE RATIO 30 (6-25); CALCIUM 9.1 mg/dL (8.4-10.2); CARBON DIOXIDE 24 mmol/L (22-29); CHLORIDE 104 mmol/L (98-107); CREATININE, SERUM 0.83 mg/dL (0.57-1.11); EST GLOMERULAR FILTRATION RATE > 60 ML/MIN (60-); GLUCOSE 97 mg/dL (74-118); SODIUM 137 mmol/L (136-145)
[~2020-03-12] MED LIST changes: +B&O 60MG R/S 60 MG SUPP PR ONE; +DEXAMETHASONE SOD PHOS INJ 4 MG/ML VIAL ONE; +FENTANYL CITRATE/PF 100MCG/2 ML INJ ONE; +GENTAMICIN 80MG/NS 100 ML 200 ML IV ONE; +IOPAMIDOL 300MG/ML 50ML INFUS..BTL IV ONE; +KLOR-CON M2020 MEQ PO; +LABETALOL HCL 20 ML ONE; +LIDOCAINE HCL 2% LOCAL INJ 5 ML SDV VIAL INJ ONE; +ONDANSETRON HCL INJ 2MG/ML 2ML 2 MG/ML VIAL ONE; +PHENYLEPHRINE HCL 1% 10 MG/ML VIAL ONE; +PROPOFOL IV EMULSION 10 MG/ML 20 ML VIAL ONE; +SEVOFLURANE INHAL SOLN 250 ML PEN BTL ONE
[2020-03-12 07:59] LABS: INR 0.99; PROTHROMBIN TIME 13.7 seconds (11.9-14.5)
[2020-03-12 08:00] LABS: PARTIAL THROMBOPLASTIN TIME 29.7 seconds (23.8-35.5)
[2020-03-12 10:50] VITALS: BP 145/89
--- NOTE | 2020-03-13 02:21 | Operative Report ---
DATE OF PROCEDURE: 03/12/2020 SURGEON: Mele Boateng MD PREOPERATIVE DIAGNOSES: 1. Retained bilateral indwelling ureteral stents. 2. Hydronephrosis. 3. Atrophic (senile) vaginitis. POSTOPERATIVE DIAGNOSES: 1. Large bladder stone encasing both intravesical loops from the retained stents from 2019. 2. Bilateral hydronephrosis. 3. Mild cystocele (grade 1). 4. Atrophic (senile) vaginitis. OPERATIONS PERFORMED: 1. Cystourethroscopy with bilateral ureteral catheterization and retrograde ureteropyelography. 2. Interpretation of retrograde ureteropyelography. 3. Cystourethroscopy with insertion of bilateral indwelling ureteral stents (separate procedure performed to relieve the hydronephrosis). 4. Complex cystolitholapaxy of large bladder stones, larger than 2.5 cm cumulative diameter (separate procedure performed for the bladder stone). 5. Interpretation of retrograde ureteropyelography, no radiologist present. 6. Pelvic examination under anesthesia. ANESTHESIA: General. COMPLICATIONS: None. CLINICAL SUMMARY: Analia Lynn is an 84-year-old woman, who had bilateral stents placed for obstruction. The patient failed to follow up. There were multiple factors with this failure to followup including both, hip fracture as well as the COVID-19 emergency in fear of seeking care. The patient resurfaced into our practice recently and we noted that she had retained stents. Therefore, she was brought for attempts at removing and replacing the stents. The patient and her family were aware of the risks of bleeding, infection, injury to adjacent structures, need for additional procedures and would like to proceed. OPERATIVE PROCEDURE IN DETAIL: Informed consent was verified. Analia Lynn was properly identified, taken to the operating room, placed on the cystoscopy table in supine position. Anesthesia was uneventfully begun. The patient was then carefully gently repositioned in the dorsal lithotomy position with all pressure points well padded. Her genitalia were prepared and draped in usual sterile fashion. The 22.5-Danish cystoscope sheath with obturator in place was atraumatically inserted into the patient's urethra and bladder was drained. Panendoscopy revealed stents emerging from both ureteral orifices. These stents were old, they were colored black and both intravesical coils were encased in dense large stones. Attempts were made to mobilize both stents with a grasper, but they would not budge. Fluoroscopically, they appeared to be encased the stone material that unfortunately has formed in these old stents. A guidewire was then placed into the left ureter over the guidewire. We then placed an open-ended catheter was inserted into the patient's level of the patient's kidney. Contrast was injected. Guidewire was replaced under cystoscopic and fluoroscopic guidance. The left-sided 7-Danish x 26 cm indwelling ureteral stent was then placed, it was coiled in the patient's upper pole calyx as well as the patient's bladder. The retaining sutures removed. An identical maneuver was performed on the right-hand side with identical results. The only difference on the right-hand side is that we placed a 7-Danish x 24 cm indwelling ureteral stent and coiled in the patient's mid pole calyx. Interpretation of retrograde ureteropyelography contrast was instilled in retrograde fashion bilaterally. There was bilateral hydronephrosis, bilateral retained stents. Both stents have proximal coil in case there is a stone. Both stents had distal coils in case there is a stone. Holmium laser lithotripsy was then performed to pulverize the stones encasing the stents into smaller fragments. We then evacuated all these fragments and sent them for chemical analysis. The patient bladder was drained cystoscope was withdrawn. Pelvic examination under anesthesia revealed a grade 1 cystocele with atrophic (senile) vaginitis versus sebaceous cyst noted bilaterally paravaginally. No abnormal palpable pelvic masses could be appreciated. The patient was then uneventfully reversed from anesthesia and taken to recovery room in stable condition. There were no complications to the procedure, she tolerated the procedure well. Explicit postop instructions were given. Plans will be for the patient to remain off anticoagulation. We will bring her back to the operating room in 2 days to perform bilateral lithotripsy in attempts to remove the retained stents. Following this, we will determine the next step in management. This procedure is not elective. This patient should have had her surgery long ago except for various factors that prevented us from doing so including noncompliance. This is procedure is an emergency. The patient is symptomatic, has infection in bilateral retained stents that have progressed and formed stones on them. Specimens from this case include catheterized urine culture, and the stones, fragmented bladder stones. There was no need to send a culture from the kidneys to the fact that the hydronephrotic drip obtained bilaterally is clear. Mele MD WILBERTO Boateng/BERNABE /[id number] cc: Michael Chang DO
== END | disposition home or self-care (01) ==
LOC: OR 06:35
PROVIDERS: ATTEND Urology
DX: N21.0 Calculus in bladder (principal); Z96.0 Presence of urogenital implants; N13.30 Unspecified hydronephrosis; N95.2 Postmenopausal atrophic vaginitis; N81.10 Cystocele, unspecified; J44.9 Chronic obstructive pulmonary disease, unspecified; I10 Essential (primary) hypertension; I48.91 Unspecified atrial fibrillation; F03.90 Unspecified dementia, unspecified severity, without behavioral disturbance, psychotic disturbance, mood disturbance, and anxiety; Z01.810 Encounter for preprocedural cardiovascular examination; Z01.812 Encounter for preprocedural laboratory examination; Z01.818 Encounter for other preprocedural examination; Z11.59 Encounter for screening for other viral diseases; Z79.02 Long term (current) use of antithrombotics/antiplatelets; Z85.3 Personal history of malignant neoplasm of breast
CPT/HCPCS: 36415 ×2; 52318; 52332; 71046; 74018; 74420; 80048; 83970; 84132; 84550; 85025; 85610; 85730; 87086; 87635 ×2; 88300; 93005; C2617; J1100; J1580; J2001; J2370; J2405; J2704; J3010; J3490; Q9967

== ENCOUNTER → 2020-03-14 | Day surgery (SDC) | payer MEDICARE ==
[~2020-03-14] MED LIST changes: +ACETAMINOPHEN 1000 MG/100 ML 100 ML IV ONE; -DEXAMETHASONE SOD PHOS INJ 4 MG/ML VIAL ONE; -LABETALOL HCL 20 ML ONE; +METOPROLOL TARTRATE 50 MG TAB PO ONE; +METOPROLOL TARTRATE INJ 1 MG/ML VIAL ONE; -PHENYLEPHRINE HCL 1% 10 MG/ML VIAL ONE
--- OUTSIDE RECORDS SUMMARY | 2020-03-14 06:46 | XMS REPORT | Continuity of Care Document ---
Author Author Filiberto NASOFORMBARBI [facility] NASOFORM Address Unknown Phone Unavailable Care Team Providers Care Applied Computer Science Professor Name Role Phone [facility] [email or web address] Information Accumulate Unavailable Un available Problems Problem Status Onset Date Classification Date Reported Comments Source Radiculopathy, lumbar region 11/30/2018 06/11/2019 [facility] [place] Dorsalgia, unspecified 10/10/2018 04/22/2019 [facility] [place] DX: I48.91=UNSPECIFIED ATRIAL FIBRILLATI Active 03/01/2017 [facility] R10.12 - LEFT UPPER QUADRANT PAIN Active 12/26/2015 [facility] V82.81 - SCREEN - OSTEOP Active 12/24/2014 [facility] [place] Spinal stenosis, lumbar region with neur ogenic claudication 06/11/2019 [facility] [place] Other intervertebral disc disorders, lumbosacral regio n 06/11/2019 [facility] [place] Pathological fracture, other site, initi al encounter for fracture 06/11/2019 [facility] [place] Pain in right hip 04/22/2019 [facility] [place] Pain in left hip 04/22/2019 [facility] [place] Other spondylosis, lumbar region 04/22/2019 [facility] [place] UNSPECIFIED ATRIAL FIBRILLATION Active [facility] Medications No Data Provided for This Section Allergies, Adverse Reactions, Alerts No Known Medication Allergies Immunizations No Data Provided for This Section Results No Data Provided for This Section Pathology Reports No Data Provided for This Section Diagnostic Reports Report Value Date Source Spine lumbar w/wo contrast MRI EXAM: MRI LUMBAR SPINE WITHOUT AND WITH CONTRAST DATE: 11/21/2018 14:29 CHIEF MEDICAL TECHNOLOGIST . ORDERING PHYSICIAN: Melva Coles MD CLINICAL [...] cauda equina 2. Potential exiting nerve root impingem ent on the right at L4-L5 and L5-S1 3. Nondisplaced, subacute bilateral sacr al insufficiency fractures, which are amenable to augmentation by interventional radiology. 11/21/2018 [facility] Pedersen Hip bilat w pelvis and both lat [...] involvement. Impression: 1. No acute bony abnormalities identifi ed. 10/02/2018 [facility] Pedersen Spine lumbar series DX Exam: S pine lumbar series DX Reason for Exam: - pain lumbar area; back and hip pain Comparison Exam: None Discussion: 5 non rib-bearing lumbar vertebral kristopher s are seen. Vertebral body heights are maintained. [...] pelvis. Impression: 1. Vertebral body heights are maintaine d. No spondylolisthesis nor scoliosis. Moderate degenerative changes seen at the level of the lower lumbar spine. 10/02/2018 OMARI Pedersen Stereo Breast BX Uni /Clip Primary SD MA - STEREO BREAST BX UNI /CLIP PRIMARY SD MA/L STEREOTACTIC GUIDED BIOPSY LEFT BREAST USING VACUUM DEVICE WITH MARKING DEVICE INSERTED AND POST DIGITAL MAMMOGRAPHIC IMAGING AND RADIOGRAPHIC SPECIMEN IMAGING- POST-PROCEDURE IMAGING FOR MARKER PLACEMENT: 03/10/2017 CLINICAL: Left Breast Calcifications. Correlation is made to exams dated: 02/23/2017 mammogram, 02/04/2017 mammogram, 01/02/2016 mammogram, 01/02/2015 mammogram - [facility], 12/24/2014 mammogram and 12/18/2013 mammogram - [facility]. A stereotactic guided biopsy was performed for [...] location, multiple specimens were obtained using the [facility] system. A clip was inserted into the [...] hrs 03/14/17. Lucas Palencia M.D. ap/:03/14/2017 14:15:11 Casino Gaming Inspector: Kiersten Falcon, [facility] This exam was dictated and interpreted by [id number] for [facility]. 03/10/2017 [facility] Breast Mammo Diag UNI incl CAD MA - BREAST MAMMO DIAG UNI INCL CAD MA/L UNILATERAL LEFT DIGITAL DIAGNOSTIC MAMMOGRAM WITH CAD: 02/23/2017 CLINICAL: Calcium Deposit. Current study was evaluated with a Computer Aided Detection (CAD) system. Comparison is made to exams dated: 02/04/2017 mammogram, 01/02/2016 mammogram, 01/02/2015 mammogram - [facility], 12/24/2014 mammogram, 12/18/2013 mammogram and 12/14/2012 mammogram - [facility]. The tissue of the left breast is [...] patient. Professional services are provided by the [facility] Division of Diagnostic Imaging. Hiren Mcrae M.D. cm/:02/23/2017 15:38:09 Casino Gaming Inspector: Addis Coronel RT(R)(Sylvia), [facility] This exam was dictated and interpreted by [id number] for KENDRA Pedersen. letter sent: Biopsy Mammogram BI-RADS: 4 Suspicious abnormality 02/23/2017 KENDRA Pedersen Breast Mammo Scrn RAFY incl CAD MA - BREAST MAMMO SCRN RAFY INCL CAD MA BILATERAL DIGITAL SCREENING MAMMOGRAM WITH CAD: 02/04/2017 CLINICAL: Breast Cancer Screening. Current study was evaluated with a Computer Aided Detection (CAD) system. Comparison is made to exams dated: 01/02/2016 mammogram, 01/02/2015 mammogram - [facility], 12/24/2014 mammogram, 12/18/2013 mammogram, 12/14/2012 mammogram and 12/17/2010 mammogram - [facility]. The tissue of both breasts is heterogeneously [...] ultrasound are recommended. SUMMARY: The staff of [facility] with [facility] will contact the referring physician for orders and then contact the patient to schedule the additional studies. A supplemental report will be issued following interpretation of the additional studies. Professional services are provided by the [facility] Division of Diagnostic Imaging. Genevieve rubin/penrad:02/08/2017 08:46:04 Casino Gaming Inspector: Priscilla Waterman RT(R)(Sylvia), [facility] This exam was dictated and interpreted by [id number] for KENDRA Santillan. letter sent: Additional Imaging Mammogram BI-RADS: 0 Indeterminate 02/04/2017 KENDRA Pedersen Shoulder wo contrast MRI EXAMI NATION: MR left shoulder without contrast HISTORY: M77.9 [...] scattered synovitis. IMPRESSION: 1. Moderate grade, partial-thickness, bu rsal sided tear at the footprint of the [...] glenoid labrum. 3. Large left glenohumeral joint effusio n with scattered synovitis. 4. Mild left acromioclavicular degenerat elida arthrosis. 5. Mild left subacromial subdeltoid burs itis. 03/04/2016 OMARI Brusha Shoulder series DX CLINICAL HI STORY: left shoulder pain AGE: 80 years GENDER: Female TECHNIQUE: Left shoulder radiographs, 3 views. COMPARISON: None FINDINGS: There is no evidence of fracture or dislocation. Osseous mineralization is within normal limits. No lytic or blastic lesions are seen. There is mild to moderate degenerative change in the acromioclavicular joint. IMPRESSION: Mild to moderate degenerative changes of the acromioclavicular joint.. 03/04/2016 OMARI Pedersen Digital Mammo Screening Rafy MA - DIGITAL MAMMO SCREENING RAFY MA BILATERAL DIGITAL SCREENING MAMMOGRAM WITH CAD: 01/02/2016 CLINICAL: Routine. Current study was evaluated with a Computer Aided Detection (CAD) system. Comparison is made to exams dated: 01/02/2015 mammogram - [facility], 12/24/2014 mammogram, 12/18/2013 mammogram, 12/14/2012 mammogram, 12/17/2010 mammogram and 04/24/2009 mammogram - [facility]. The tissue of both breasts is heterogeneously dense, which could obscure detection of small masses. There is evidence of post surgical and radiation changes associated with the right breast. No significant masses, calcifications, or other findings are seen in either breast. IMPRESSION: BENIGN There is no mammographic evidence of malignancy. A 1 year screening mammogram is recommended. Dr. Aman Amanda M.D. eoc/penrad:01/06/2016 14:05:13 Casino Gaming Inspector: Addis HARDIN(Richi)(Sylvia), [facility] This exam was dictated and interpreted by [id number] at [facility]. letter sent: Normal exam Mammogram BI-RADS: 2 Benign 01/02/2016 OMARI Pedersen Chest 2 views DX CHEST PA AND LATERAL History: 80-year-old female with a lung nodule. Comparison: 12/24/2014 Findings: The lungs are expanded and no infiltrate, mass or pleural effusion seen. Cardiomediastinal structures are within normal limits. Healed right rib fracture is again seen. IMPRESSION: There is no acute cardio pulmonary abnormality. 01/02/2016 OMARI Pedersen Chest wo contrast CT EXAM: CT CHEST WITHOUT CONTRAST DATE: 01/02/2016 10:07 AM CHIEF MEDICAL TECHNOLOGIST INDICATION: R10.12 Left upper quadrant pain TECHNIQUE: [...] December 2013. 2. Tangential postradiation changes in t he right upper lobe. 3. Mild cardiomegaly with dilated left a trium. 4. Ectasia of the ascending thoracic aor ta measuring 4 cm. 5. Stable right hepatic lobe cyst. 6. Bilateral nonobstructive nephrolithia sis. 01/02/2016 [facility] Chest w/wo contrast CT CHEST C T CLINICAL HISTORY: Lung nodule and a remote [...] seen. IMPRESSION: 1. Stable bilateral pulmonary nodules. R epeat chest CT in one year is recommended for followup. 2. Stable liver lesion suggestive of a c yst. 12/24/2013 [facility] [place] Chest 2 views HISTORY: Hyperte nsion TECHNIQUE: Two views of the chest COMPARISON: [...] to previous chest x-ray of 12/14/2012. 12/18/2013 [facility] [place] Digital Mammo Screening Rafy MA - DIGITAL MAMMO SCREENING RAFY MA BILATERAL DIGITAL SCREENING MAMMOGRAM WITH CAD: 12/18/2013 CLINICAL: Routine. Current study was evaluated with a Computer Aided Detection (CAD) system. Comparison is made to exam dated: 04/24/2009 mammogram - [facility]. The tissue of both breasts is heterogeneously [...] recommended. Dr. Aman Amanda M.D. eoc/penrad:12/18/2013 11:49:16 Casino Gaming Inspector: TEODORA SUH RTJUAN LUIS, [facility] This exam was dictated and interpreted by [id number] for Jovan Santillan. letter sent: Normal exam Mammogram BI-RADS: 2 Benign [facility]18[facility] [place] Consultation Notes No Data Provided for This Section Discharge Summaries No Data Provided for This Section History and Physicals No Data Provided for This Section Vital Signs No Data Provided for This Section Encounters Location Location Details Encounter Type Encounter Number Reason For Visit Attending Provider ADM Date DC Date Status Source [facility] [place] [facility] [id number] 08 Melva CalvoSanket 01/02/2015 01/03/2015 [facility] [place] [facility] [place] [facility] [id number] 10 Melva Sanket 01/02/2016 [facility]03[facility] [place] [facility] [id number] 09 Melva Sanket 01/02/2016 01/03/2016 [facility] [place] [facility] [place] [facility] [id number] 11 Melva Sanket 03/04/2016 03/05/2016 [facility] [place] [facility] [place] [facility] [id number] Melva Sanket 02/04/2017 02/05/2017 [facility] [place] [facility] [place] [facility] [id number] 13 Melva Sanket 02/23/2017 02/24/2017 [facility] [place] [facility] Outpatient [id number] Melva Sanket 03/10/2017 03/11/2017 [facility] [place] [facility] [id number] 14 Melva Sanket 10/02/2018 10/03/2018 [facility] [place] [facility] [place] [facility] [id number] 15 Melva Coles 11/21/2018 11/22/2018 [facility] [place] Procedures No Data Provided for This Section Assessment and Plan No Data Provided for This Section Plan of Care No Data Provided for This Section Social History Social History Date Source No data available for this section 11/22/2018 [facility] [place] No data available for this section 03/11/2017 [facility] No data available for this section 01/03/2016 [facility] [place] Family History No Data Provided for This Section Advance Directives No Data Provided for This Section Functional Status No Data Provided for This Section
[2020-03-14 08:13] LABS: BASOPHILS # (AUTO) 0.1 (0.0-0.1); EOSINOPHILS # (AUTO) 0.1 (0.0-0.4); EOSINOPHILS % 2.4 % (0.0-6.0); HEMATOCRIT 37.2 % (34.2-44.1); LYMPHOCYTES # (AUTO) 1.5 (1.0-3.2); LYMPHOCYTES % 25.5 % (18.0-39.1); MEAN CORPUSCULAR HEMOGLOBIN 26.8 pg (28-32); MEAN CORPUSCULAR HGB CONC 29.6 g/dL (31-35); MEAN CORPUSCULAR VOLUME 90.7 fL (81-99); MONOCYTES # (AUTO) 0.5 (0.2-0.8); MONOCYTES % 8.9 % (4.4-11.3); NEUTROPHILS # (AUTO) 3.6 (2.1-6.9); PLATELET COUNT 255 x10e3/uL (140-360); RED CELL DISTRIBUTION WIDTH 15.9 % (11.7-14.4)
[2020-03-14 08:24] LABS: ANION GAP 13.6 mmol/L (8-16); CALCIUM 9.2 mg/dL (8.4-10.2); CREATININE, SERUM 0.98 mg/dL (0.57-1.11); POTASSIUM 3.6 mmol/L (3.5-5.1)
[2020-03-14 11:31] LABS: PLATELET ESTIMATE ADEQUATE; PLATELET MORPHOLOGY COMMENT NORMAL; RBC MORPHOLOGY COMMENT NORMAL
[2020-03-14 11:32] LABS: HYPOCHROMASIA SLIGHT
[2020-03-14 13:35] VITALS: BP 154/91
--- NOTE | 2020-03-17 00:47 | Operative Report ---
DATE OF PROCEDURE: 03/14/2020 SURGEON: Mele Boateng MD PREOPERATIVE DIAGNOSES: 1. Bilateral nephrolithiasis. 2. Bilateral indwelling ureteral stents. 3. Atrophic vaginitis. POSTOPERATIVE DIAGNOSES: 1. Bilateral nephrolithiasis. 2. Bilateral indwelling ureteral stents. 3. Atrophic vaginitis. OPERATIONS PERFORMED: Note: These were all staged procedures as part of a multistage process of managing the patient's urolithiasis. 1. Bilateral extracorporeal shockwave lithotripsy (separate procedure performed for the bilateral nephrolithiasis. 2. Cystourethroscopy with complicated removal of bilateral indwelling ureteral stents (separate procedure performed for the bilateral retained old stents). 3. Supervision of fluoroscopy, no radiologist present. 4. Pelvic examination under anesthesia. ANESTHESIA: General. COMPLICATIONS: None. CLINICAL SUMMARY: Analia Lynn is an 84-year-old woman, who had bilateral indwelling ureteral stents for obstruction. The patient had a stent placed six months ago and did not follow up for a variety of reasons. Now, the patient's stents need to be removed. Two days ago, she was brought to the operating room in hopes of changing or removing her stents. We found that there was a golf ball size stone, and then in case both distal loops of her stents and the proximal loops were encased in stone that required lithotripsy. The patient has held her anticoagulation, which she needs to resume fairly soon and therefore we are performing bilateral ESWL due to the fact that the risk of bilateral ESWL is greatly outweighed by the benefit of resuming the patient's anticoagulation soon and avoiding additional anticoagulation episodes as well as getting rid of these infected, encrusted, and calcified old stents. The patient has new stents that were placed two days earlier, where bilateral hydronephrosis was noted. The patient has also had infections of the urine. She and her are aware of the risks of bleeding, infection, injury to adjacent structures, need for additional procedures and elected to proceed. This is not an elective procedure and must be performed despite the COVID-19 emergency. The patient has been tested twice workup for coronavirus and those tests were negative. Delaying this procedure would result in additional infections as well as additional stone formation. OPERATIVE PROCEDURE IN DETAIL: Informed consent was verified. Analia Lynn was properly identified, taken to operating room, placed on the lithotripsy table in supine position. Anesthesia was uneventfully begun. The patient's left nephrolithiasis was localized with biplanar fluoroscopy. A total of 3000 shocks were delivered to the whole loop of stent that is encased in the stone. The patient was then carefully gently repositioned in dorsal lithotomy position with all pressure points well padded. Her genitalia were prepared and draped in sterile fashion. The cystoscope sheath with obturator in place was atraumatically inserted into the patient's urethra and the bladder was drained. Once 3000 shocks were delivered. We were able to extract the retained stent from the left side. We ensured positioning, remained stable of her left-sided new stent. An identical procedure was performed on the right-hand side with similar results. The patient's bladder was drained. Cystoscope was withdrawn. Pelvic examination revealed atrophic vaginitis. No abnormal palpable pelvic masses could be appreciated. There were no obvious mucosal lesions. Plans will be as follows. We will order a nuclear medicine renal scan to evaluate the function of both these kidneys. They were obstructed by retained stents and has been subjected to infection. We have also planned to return the patient to the operating room in several weeks to remove her stents, perform bilateral ureteroscopy and manage any residual stone burden that was not fragmented adequately nor passed adequately as a result of these lithotripsies. This patient needs ongoing urological followup in hopes of rendering her stent-free, stone-free and infection-free. Metabolic stone workup will be performed once the patient is stent-free and stone-free. Mele Boateng MD [place]/MODL /[id number] cc: Michael Chang DO
== END | disposition home or self-care (01) ==
LOC: OR 06:43
PROVIDERS: ATTEND Urology
DX: N20.0 Calculus of kidney (principal); Z46.6 Encounter for fitting and adjustment of urinary device; Z96.0 Presence of urogenital implants; N20.1 Calculus of ureter; N95.2 Postmenopausal atrophic vaginitis; N13.30 Unspecified hydronephrosis; N39.0 Urinary tract infection, site not specified; N39.46 Mixed incontinence; R35.1 Nocturia; D39.8 Neoplasm of uncertain behavior of other specified female genital organs; R39.14 Feeling of incomplete bladder emptying; N13.5 Crossing vessel and stricture of ureter without hydronephrosis; R80.9 Proteinuria, unspecified; I48.91 Unspecified atrial fibrillation; I10 Essential (primary) hypertension; Z88.1 Allergy status to other antibiotic agents; Z88.0 Allergy status to penicillin; Z79.02 Long term (current) use of antithrombotics/antiplatelets; Z85.3 Personal history of malignant neoplasm of breast; Z84.1 Family history of disorders of kidney and ureter
CPT/HCPCS: 36415; 50590; 52315; 80048; 85025; C1769; J0131; J1580; J2001; J2405; J2704; J3010

== ENCOUNTER → 2020-04-25 | Day surgery (SDC) | payer MEDICARE ==
[2020-04-22 14:47] LABS: BASOPHILS # (AUTO) 0.1 (0.0-0.1); BASOPHILS % 1.4 % (0.0-1.0); EOSINOPHILS # (AUTO) 0.3 (0.0-0.4); EOSINOPHILS % 6.6 % (0.0-6.0); HEMATOCRIT 31.4 % (34.2-44.1); HEMOGLOBIN 9.2 g/dL (12.0-16.0); LYMPHOCYTES # (AUTO) 1.1 (1.0-3.2); LYMPHOCYTES % 25.7 % (18.0-39.1); MEAN CORPUSCULAR HEMOGLOBIN 25.5 pg (28-32); MEAN CORPUSCULAR HGB CONC 29.3 g/dL (31-35); MONOCYTES # (AUTO) 0.5 (0.2-0.8); MONOCYTES % 11.1 % (4.4-11.3); NEUTROPHILS # (AUTO) 2.3 (2.1-6.9); PLATELET COUNT 278 x10e3/uL (140-360); RED BLOOD COUNT 3.61 x10e6/uL (3.6-5.1); RED CELL DISTRIBUTION WIDTH 16.2 % (11.7-14.4)
[2020-04-22 15:08] LABS: ANION GAP 13.6 mmol/L (8-16); CALCIUM 8.5 mg/dL (8.4-10.2); CREATININE, SERUM 0.98 mg/dL (0.57-1.11); POTASSIUM 3.6 mmol/L (3.5-5.1)
[~2020-04-25] MED LIST changes: -ACETAMINOPHEN 1000 MG/100 ML 100 ML IV ONE; +FLUCONAZOLE 200 MG/100 ML 100 ML IV ONE; +GENTAMICIN 80MG/NS 100 ML 100 ML IV ONE; -GENTAMICIN 80MG/NS 100 ML 200 ML IV ONE; +GENTAMICIN SULFATE 40 MG/ML 2 ML VIAL ONE; -METOPROLOL TARTRATE 50 MG TAB PO ONE
[2020-04-25 16:05] VITALS: BP 134/94
--- NOTE | 2020-05-27 04:27 | Operative Report ---
DATE OF PROCEDURE: 04/25/2020 SURGEON: Mele Boateng MD PREOPERATIVE DIAGNOSES: 1. Bilateral nephrolithiasis. 2. Bilateral indwelling ureteral stents. 3. Mixed type urinary incontinence. POSTOPERATIVE DIAGNOSES: 1. Bilateral nephrolithiasis. 2. Bilateral indwelling ureteral stents. 3. Mixed type urinary incontinence. 4. Grade 1 cystocele. 5. Grade 1 rectocele. 6. Atrophic (senile) vaginitis. PROCEDURES PERFORMED: 1. Cystourethroscopy with bilateral removal of indwelling ureteral stents (separate procedure performed for the diagnosis of stents). 2. Bilateral ureteroscopy with stone manipulation (separate procedure performed for the bilateral nephrolithiasis). 3. Radiological services for supervision and interpretation of ureteroscopy. 4. Interpretation of retrograde ureteropyelography, no radiologist present. 5. Pelvic examination under anesthesia. ANESTHESIA: General. COMPLICATIONS: None. CLINICAL SUMMARY: Analia Lynn is an 84-year-old woman with retained stents as well as bilateral stones. She is brought for management. She and her are aware of the risks of bleeding, infection, injury to adjacent structures, need for additional procedures and elected to proceed. PROCEDURE IN DETAIL: Informed consent was verified. Analia Lynn was properly identified, taken to the operating room, placed on the cystoscopy table in supine position. Anesthesia was uneventfully begun. The patient was then carefully gently repositioned in the dorsal lithotomy position with all pressure points well padded. Her genitalia were prepared and draped in usual sterile fashion. The cystoscope sheath with obturator in place was atraumatically inserted in the patient's urethra and bladder was drained. Panendoscopy revealed a stent emerging from both ureteral orifices. There was somewhat encrusted. A guidewire was then placed into the right ureter and guided to the level of the patient's kidney. The stent was then grasped completely, removed and discarded. Ureteroscope was then placed over the guidewire and guided to the level of the patient's kidney. Panendoscopy revealed stones, grasped the stone, manipulated and extracted it. We returned to the kidney over the guidewire and exhibited no residual stones remaining, fine sand remained and it was irrigated to loosen it. The ureter was unremarkable without any stones, and no obstruction. An identical maneuver with identical findings was performed on the left hand side. Interpretation of retrograde ureteropyelography contrast was instilled in a retrograde fashion bilaterally. There was some fullness of both kidneys due to chronic stenting. It was difficult to appreciate filling defects related to the stones. Nevertheless, unobstructed drainage was observed bilaterally fluoroscopically. The patient's bladder was drained. Cystoscope was withdrawn. Pelvic examination revealed a grade 1 cystocele, grade 1 rectocele, there was atrophic (senile) vaginitis. The patient was then uneventfully reversed from anesthesia and taken to recovery room in stable condition. There were no complications during the procedure. She tolerated the procedure well. We will follow the patient up in the office and of course on long-term basis. MD WILBERTO Cruz/BERNABE /[id number]
== END | disposition home or self-care (01) ==
LOC: OR 10:36
PROVIDERS: ATTEND Urology
DX: N20.0 Calculus of kidney (principal); Z46.6 Encounter for fitting and adjustment of urinary device; N39.0 Urinary tract infection, site not specified; N39.46 Mixed incontinence; R35.1 Nocturia; N95.2 Postmenopausal atrophic vaginitis; D39.8 Neoplasm of uncertain behavior of other specified female genital organs; J44.9 Chronic obstructive pulmonary disease, unspecified; I10 Essential (primary) hypertension; I48.91 Unspecified atrial fibrillation; Z88.1 Allergy status to other antibiotic agents; Z88.0 Allergy status to penicillin; Z01.812 Encounter for preprocedural laboratory examination; Z11.59 Encounter for screening for other viral diseases; Z79.02 Long term (current) use of antithrombotics/antiplatelets; Z85.3 Personal history of malignant neoplasm of breast; Z84.1 Family history of disorders of kidney and ureter
CPT/HCPCS: 36415; 52352; 74420; 80048; 84550; 85025; 87086; 87635; 88300; C1766; C1769; J1450; J1580 ×2; J2001; J2405; J2704; J3010; Q9967; U0002

== ENCOUNTER 2020-11-27 16:06 | Inpatient (IN) | payer MEDICARE ==
[~2020-11-27] VITALS: Ht 165.1 cm; Wt 75.7 kg
[~2020-11-27 16:06] MED LIST changes: -B&O 60MG R/S 60 MG SUPP PR ONE; -FENTANYL CITRATE/PF 100MCG/2 ML INJ ONE; -FLUCONAZOLE 200 MG/100 ML 100 ML IV ONE; -GENTAMICIN 80MG/NS 100 ML 100 ML IV ONE; -GENTAMICIN SULFATE 40 MG/ML 2 ML VIAL ONE; -IOPAMIDOL 300MG/ML 50ML INFUS..BTL IV ONE; -LIDOCAINE HCL 2% LOCAL INJ 5 ML SDV VIAL INJ ONE; -METOPROLOL TARTRATE INJ 1 MG/ML VIAL ONE; -ONDANSETRON HCL INJ 2MG/ML 2ML 2 MG/ML VIAL ONE; -PROPOFOL IV EMULSION 10 MG/ML 20 ML VIAL ONE; -SEVOFLURANE INHAL SOLN 250 ML PEN BTL ONE
[2020-11-27] MEDS ORDERED: ASPIRIN 81 MG CHEW TAB PO ONE (16:15)
[2020-11-27 16:26] LABS: BASOPHILS # (AUTO) 0.1 (0.0-0.1); BASOPHILS % 1.6 % (0.0-1.0); EOSINOPHILS # (AUTO) 0.2 (0.0-0.4); EOSINOPHILS % 4.1 % (0.0-6.0); HEMATOCRIT 33.5 % (34.2-44.1); HEMOGLOBIN 9.2 g/dL (12.0-16.0); LYMPHOCYTES # (AUTO) 1.1 (1.0-3.2); MEAN CORPUSCULAR HEMOGLOBIN 20.9 pg (28-32); MEAN CORPUSCULAR HGB CONC 27.5 g/dL (31-35); MEAN CORPUSCULAR VOLUME 76.1 fL (81-99); MONOCYTES # (AUTO) 0.7 (0.2-0.8); MONOCYTES % 12.8 % (4.4-11.3); NEUTROPHILS % 59.3 % (38.7-80.0); PLATELET COUNT 273 x10e3/uL (140-360); RED CELL DISTRIBUTION WIDTH 22.2 % (11.7-14.4)
[2020-11-27 16:45] LABS: ALANINE AMINOTRANSFERASE 10 IU/L (0-55); ALBUMIN 3.5 g/dL (3.5-5.0); ALKALINE PHOSPHATASE 72 IU/L (40-150); ANION GAP 13.3 mmol/L (8-16); BLOOD UREA NITROGEN 27 mg/dL (7-26); BUN/CREATININE RATIO 34 (6-25); CALCIUM 8.4 mg/dL (8.4-10.2); CARBON DIOXIDE 24 mmol/L (22-29); CHLORIDE 107 mmol/L (98-107); CREATINE KINASE 57 IU/L (29-168); CREATININE, SERUM 0.79 mg/dL (0.57-1.11); EST GLOMERULAR FILTRATION RATE > 60 ML/MIN (60-); GLUCOSE 116 mg/dL (74-118); POTASSIUM 3.3 mmol/L (3.5-5.1); SODIUM 141 mmol/L (136-145)
[2020-11-27] MEDS ORDERED: DILTIAZEM HCL 5 MG/ML 5 ML VIAL IV STA ×2 (17:05→17:56)
[2020-11-27 17:07] LABS: FREE THYROXINE INDEX 2.5258 (1.4-3.8); THYROID STIMULATING HORMONE 2.457 uIU/mL (0.350-4.940)
[2020-11-27] MEDS ORDERED: FUROSEMIDE INJ 10 MG/ML 2 ML VIAL IV ONE (17:15)
[2020-11-27 18:09] LABS: COLOR,URINE YELLOW (YELLOW)
[2020-11-27 18:10] LABS: CLARITY,URINE CLOUDY (CLEAR)
[2020-11-27 18:13] LABS: LEUKOCYTE ESTERASE ,URINE TRACE (NEGATIVE)
[2020-11-27 18:14] LABS: NITRITE,URINE NEGATIVE (NEGATIVE); PROTEIN,URINE DIPSTICK NEGATIVE (NEGATIVE)
[2020-11-27 18:15] LABS: KETONES,URINE NEGATIVE (NEGATIVE); WBC,URINE (MAN) 0-5 /HPF (0-5)
[2020-11-27 18:16] LABS: BACTERIA,URINE MANY /HPF
[2020-11-27] MEDS ORDERED: CEFTRIAXONE SOD 1 GM/NS 50 ML 50 ML IV ONE (18:30)
[2020-11-27] MEDS ORDERED: METOPROLOL TARTRATE 50 MG TAB PO ONE (18:45)
[2020-11-27 21:57] VITALS: BP 160/63
[2020-11-27 22:10] VITALS: BP 160/63
[2020-11-27] MEDS ORDERED: INFLUENZA VIRUS VAC SPLIT INJ 0.5 ML SYR IM SCH (22:57)
[2020-11-28] VITALS (7 sets, daily range): BP systolic 142–194; BP diastolic 84–107
[2020-11-28 05:33] LABS: BASOPHILS # (AUTO) 0.1 (0.0-0.1); BASOPHILS % 1.2 % (0.0-1.0); EOSINOPHILS # (AUTO) 0.2 (0.0-0.4); EOSINOPHILS % 2.7 % (0.0-6.0); HEMATOCRIT 33.7 % (34.2-44.1); HEMOGLOBIN 9.2 g/dL (12.0-16.0); LYMPHOCYTES # (AUTO) 1.1 (1.0-3.2); LYMPHOCYTES % 20.1 % (18.0-39.1); MEAN CORPUSCULAR HEMOGLOBIN 20.9 pg (28-32); MEAN CORPUSCULAR HGB CONC 27.3 g/dL (31-35); MEAN CORPUSCULAR VOLUME 76.4 fL (81-99); MONOCYTES # (AUTO) 0.6 (0.2-0.8); MONOCYTES % 10.3 % (4.4-11.3); NEUTROPHILS # (AUTO) 3.7 (2.1-6.9); NEUTROPHILS % 65.5 % (38.7-80.0); PLATELET COUNT 272 x10e3/uL (140-360); RED BLOOD COUNT 4.41 x10e6/uL (3.6-5.1); RED CELL DISTRIBUTION WIDTH 22.3 % (11.7-14.4)
[2020-11-28 05:45] LABS: ANION GAP 11.5 mmol/L (8-16); BLOOD UREA NITROGEN 25 mg/dL (7-26); BUN/CREATININE RATIO 30 (6-25); CALCIUM 8.3 mg/dL (8.4-10.2); CARBON DIOXIDE 29 mmol/L (22-29); CHLORIDE 106 mmol/L (98-107); CREATININE, SERUM 0.82 mg/dL (0.57-1.11); EST GLOMERULAR FILTRATION RATE > 60 ML/MIN (60-); GLUCOSE 111 mg/dL (74-118); POTASSIUM 3.5 mmol/L (3.5-5.1); SODIUM 143 mmol/L (136-145)
[2020-11-28 07:16] LABS: RBC MORPHOLOGY COMMENT NORMAL
[2020-11-28 07:17] LABS: ANISOCYTOSIS SLIGHT; HYPOCHROMASIA SLIGHT; PLATELET ESTIMATE ADEQUATE; PLATELET MORPHOLOGY COMMENT NORMAL
[2020-11-28] MEDS: ISOSORBIDE MONONITRATE 30 MG TAB CR PO SCH (09:29)
[2020-11-28] MEDS ORDERED: LASIX20 MG PO (09:36)
[2020-11-28] MEDS ORDERED: METOPROLOL TARTRATE 50 MG TAB PO SCH (09:45)
[2020-11-28] MEDS: RIVAROXABAN 15 MG TABLET PO SCH (09:53)
[2020-11-28] MEDS ORDERED: ONDANSETRON HCL INJ 2MG/ML 2ML 2 MG/ML VIAL IV PRN (15:30)
[2020-11-28] MEDS ORDERED: POLYETHYLENE GLYCOL 3350 17 GM PACK PO PRN (15:30)
[2020-11-28] MEDS ORDERED: ACETAMINOPHEN 325 MG TAB PO PRN (15:30)
[2020-11-28] MEDS ORDERED: POTASSIUM CHLORIDE 20 MEQ TAB CR PO ONE (16:00)
[2020-11-28] MEDS: DIGOXIN 0.125 MG TAB PO SCH (16:03)
[2020-11-28] MEDS: FUROSEMIDE INJ 10 MG/ML 4 ML VIAL IV SCH (16:03)
[2020-11-28] MEDS: DOCUSATE SODIUM 100 MG CAP PO SCH (16:04)
[2020-11-28] MEDS: FAMOTIDINE 20 MG TAB PO SCH (16:04)
[2020-11-28] MEDS: METOPROLOL TARTRATE 50 MG TAB PO SCH (16:04)
[2020-11-28] MEDS: SIMVASTATIN 20 MG TAB PO SCH (20:15)
[2020-11-28] MEDS ORDERED: TEMAZEPAM 15 MG CAP PO PRN (21:00)
[2020-11-28] MEDS: METOPROLOL TARTRATE INJ 1 MG/ML VIAL IV PRN (23:56)
[2020-11-29] VITALS (8 sets, daily range): BP systolic 135–178; BP diastolic 71–101
[2020-11-29 05:48] LABS: BASOPHILS # (AUTO) 0.1 (0.0-0.1); BASOPHILS % 1.1 % (0.0-1.0); EOSINOPHILS # (AUTO) 0.1 (0.0-0.4); EOSINOPHILS % 2.3 % (0.0-6.0); HEMATOCRIT 31.4 % (34.2-44.1); HEMOGLOBIN 8.7 g/dL (12.0-16.0); LYMPHOCYTES # (AUTO) 0.8 (1.0-3.2); LYMPHOCYTES % 14.9 % (18.0-39.1); MEAN CORPUSCULAR HEMOGLOBIN 21.2 pg (28-32); MEAN CORPUSCULAR HGB CONC 27.7 g/dL (31-35); MEAN CORPUSCULAR VOLUME 76.4 fL (81-99); MONOCYTES # (AUTO) 0.5 (0.2-0.8); MONOCYTES % 9.8 % (4.4-11.3); NEUTROPHILS # (AUTO) 3.8 (2.1-6.9); NEUTROPHILS % 71.7 % (38.7-80.0); PLATELET COUNT 272 x10e3/uL (140-360); RED BLOOD COUNT 4.11 x10e6/uL (3.6-5.1); RED CELL DISTRIBUTION WIDTH 21.9 % (11.7-14.4); RETICULOCYTE % 1.9 % (0.8-2.2)
[2020-11-29 06:06] LABS: % IRON SATURATION 3 % (15-50); ALANINE AMINOTRANSFERASE 8 IU/L (0-55); ALBUMIN 3.1 g/dL (3.5-5.0); ALBUMIN/GLOBULIN RATIO 0.9 (0.8-2.0); ALKALINE PHOSPHATASE 61 IU/L (40-150); ANION GAP 14.4 mmol/L (8-16); BLOOD UREA NITROGEN 28 mg/dL (7-26); BUN/CREATININE RATIO 35 (6-25); CALCIUM 8.5 mg/dL (8.4-10.2); CARBON DIOXIDE 28 mmol/L (22-29); CHLORIDE 105 mmol/L (98-107); CHOL/HDL RATIO 3.3 (3.0-3.6); CHOLESTEROL 117 MD/DL (0-199); CREATININE, SERUM 0.79 mg/dL (0.57-1.11); EST GLOMERULAR FILTRATION RATE > 60 ML/MIN (60-); GLUCOSE 109 mg/dL (74-118); HDL CHOLESTEROL 36 MG/DL (40-60); IRON 18 ug/dL (50-170); LDL CHOLESTEROL 69 MG/DL (60-130); MAGNESIUM 1.9 MG/DL (1.3-2.1); PHOSPHORUS 3.2 MG/DL (2.3-4.7); POTASSIUM 4.4 mmol/L (3.5-5.1); SODIUM 143 mmol/L (136-145); TOTAL IRON BINDING CAPACITY 515 ug/dL (261-478); TRANSFERRIN 368 mg/dL (180-382); TRIGLYCERIDES 60 MG/DL (0-149)
[2020-11-29 06:30] LABS: FERRITIN 11.42 ng/mL (4.63-204.00)
[2020-11-29 07:47] LABS: ANISOCYTOSIS SLIGHT; HYPOCHROMASIA MARKED; OVALOCYTES FEW; POIKILOCYTOSIS SLIGHT
[2020-11-29 07:48] LABS: PLATELET ESTIMATE ADEQUATE; PLATELET MORPHOLOGY COMMENT NORMAL
[2020-11-29] MEDS: FAMOTIDINE 20 MG TAB PO SCH ×2 (08:30→16:58)
[2020-11-29] MEDS ORDERED: VITAMIN D 2000 UNIT PO SCH (09:00)
[2020-11-29] MEDS: (Glucosamine/D3/Boswellia Serra (Osteo Bi-Flex Caplet) 1 TAB) PO SCH (09:00)
[2020-11-29] MEDS ORDERED: NON-FORMULARY MEDICATION (Lovastatin 20 MG) PO SCH (09:00)
[2020-11-29] MEDS ORDERED: [UNRECOGNIZED DRUG - OTHER] PO SCH (09:00)
[2020-11-29] MEDS ORDERED: ASCORBATE SODIUM PO SCH (09:00)
[2020-11-29] MEDS ORDERED: ASCORBIC ACID PO SCH (09:00)
[2020-11-29] MEDS: DOCUSATE SODIUM 100 MG CAP PO SCH ×2 (09:10→16:58)
[2020-11-29] MEDS: DIGOXIN 0.125 MG TAB PO SCH (09:11)
[2020-11-29] MEDS: ISOSORBIDE MONONITRATE 30 MG TAB CR PO SCH (09:11)
[2020-11-29] MEDS: RIVAROXABAN 15 MG TABLET PO SCH (09:12)
[2020-11-29] MEDS: MULTIVITAMINS/MINERALS TAB PO SCH (09:12)
[2020-11-29] MEDS: METOPROLOL TARTRATE 50 MG TAB PO SCH ×2 (09:12→16:59)
[2020-11-29] MEDS: CHOLECALCIFEROL 1,000 UNIT TAB PO SCH (09:12)
[2020-11-29] MEDS: ASCORBIC ACID 500 MG TAB PO SCH (09:12)
[2020-11-29] MEDS: FUROSEMIDE INJ 10 MG/ML 4 ML VIAL IV SCH (09:13)
[2020-11-29] MEDS: POTASSIUM CHLORIDE 20 MEQ TAB CR PO SCH (09:13)
[2020-11-29] MEDS: IRON SUCROSE 100 MG in SODIUM CHLORIDE 0.9% 100 ML 100 ML IV SCH (09:54)
[2020-11-29] MEDS ORDERED: SODIUM CHLORIDE 0.9% 250ML 250 ML ONE (10:05)
[2020-11-29] MEDS ORDERED: RISPERIDONE 1 MG TAB PO ONE ×2 (13:45→20:30)
[2020-11-29] MEDS ORDERED: HALOPERIDOL LACTATE 5 MG/ML VIAL IV ONE (14:00)
[2020-11-29] MEDS: SIMVASTATIN 20 MG TAB PO SCH (20:33)
[2020-11-29] MEDS ORDERED: ALBUTEROL/IPRATROPIUM 3 ML NEB NEB PRN (21:00)
[2020-11-29] MEDS: METOPROLOL TARTRATE INJ 1 MG/ML VIAL IV PRN (23:33)
[2020-11-30] VITALS (7 sets, daily range): BP systolic 136–169; BP diastolic 74–94
[2020-11-30 06:24] LABS: BASOPHILS # (AUTO) 0.1 (0.0-0.1); BASOPHILS % 1.1 % (0.0-1.0); EOSINOPHILS # (AUTO) 0.1 (0.0-0.4); EOSINOPHILS % 1.3 % (0.0-6.0); HEMATOCRIT 29.6 % (34.2-44.1); HEMOGLOBIN 8.4 g/dL (12.0-16.0); LYMPHOCYTES # (AUTO) 0.8 (1.0-3.2); MEAN CORPUSCULAR HEMOGLOBIN 21.4 pg (28-32); MEAN CORPUSCULAR HGB CONC 28.4 g/dL (31-35); MEAN CORPUSCULAR VOLUME 75.3 fL (81-99); MONOCYTES # (AUTO) 0.5 (0.2-0.8); MONOCYTES % 10.4 % (4.4-11.3); NEUTROPHILS # (AUTO) 3.3 (2.1-6.9); NEUTROPHILS % 69.8 % (38.7-80.0); PLATELET COUNT 243 x10e3/uL (140-360); RED BLOOD COUNT 3.93 x10e6/uL (3.6-5.1); RED CELL DISTRIBUTION WIDTH 21.6 % (11.7-14.4)
[2020-11-30 07:22] LABS: ANION GAP 15.2 mmol/L (8-16); BLOOD UREA NITROGEN 27 mg/dL (7-26); BUN/CREATININE RATIO 35 (6-25); CALCIUM 8.4 mg/dL (8.4-10.2); CARBON DIOXIDE 25 mmol/L (22-29); CHLORIDE 103 mmol/L (98-107); CREATININE, SERUM 0.78 mg/dL (0.57-1.11); EST GLOMERULAR FILTRATION RATE > 60 ML/MIN (60-); GLUCOSE 120 mg/dL (74-118); POTASSIUM 3.2 mmol/L (3.5-5.1); SODIUM 140 mmol/L (136-145)
[2020-11-30] MEDS ORDERED: POTASSIUM CHLORIDE 20 MEQ TAB CR PO STA (08:05)
[2020-11-30] MEDS: FAMOTIDINE 20 MG TAB PO SCH ×2 (08:35→15:44)
[2020-11-30] MEDS: POTASSIUM CHLORIDE 20 MEQ TAB CR PO SCH (09:00)
[2020-11-30] MEDS: (Glucosamine/D3/Boswellia Serra (Osteo Bi-Flex Caplet) 1 TAB) PO SCH (09:00)
[2020-11-30] MEDS: ASCORBIC ACID 500 MG TAB PO SCH (09:57)
[2020-11-30] MEDS: CHOLECALCIFEROL 1,000 UNIT TAB PO SCH (09:57)
[2020-11-30] MEDS: FUROSEMIDE INJ 10 MG/ML 4 ML VIAL IV SCH (09:57)
[2020-11-30] MEDS: DIGOXIN 0.125 MG TAB PO SCH (09:57)
[2020-11-30] MEDS: RIVAROXABAN 15 MG TABLET PO SCH (09:57)
[2020-11-30] MEDS: MULTIVITAMINS/MINERALS TAB PO SCH (09:57)
[2020-11-30] MEDS: IRON SUCROSE 100 MG in SODIUM CHLORIDE 0.9% 100 ML 100 ML IV SCH (09:57)
[2020-11-30] MEDS: DOCUSATE SODIUM 100 MG CAP PO SCH ×2 (09:57→15:44)
[2020-11-30] MEDS: METOPROLOL TARTRATE 50 MG TAB PO SCH ×2 (09:58→15:44)
[2020-11-30] MEDS: ISOSORBIDE MONONITRATE 30 MG TAB CR PO SCH (09:58)
[2020-11-30] MEDS ORDERED: HALOPERIDOL LACTATE 5 MG/ML VIAL IV NR (15:15)
[2020-11-30] MEDS ORDERED: HALOPERIDOL LACTATE 5 MG/ML VIAL ONE (15:25)
[2020-11-30] MEDS: SIMVASTATIN 20 MG TAB PO SCH (21:42)
[2020-11-30] MEDS: QUETIAPINE FUMARATE 25 MG TAB PO SCH (21:42)
[2020-12-01] VITALS (8 sets, daily range): BP systolic 123–186; BP diastolic 76–98
[2020-12-01] MEDS: METOPROLOL TARTRATE INJ 1 MG/ML VIAL IV PRN (04:37)
[2020-12-01 05:23] LABS: BASOPHILS # (AUTO) 0.1 (0.0-0.1); BASOPHILS % 1.3 % (0.0-1.0); EOSINOPHILS # (AUTO) 0.1 (0.0-0.4); EOSINOPHILS % 1.7 % (0.0-6.0); HEMATOCRIT 30.8 % (34.2-44.1); HEMOGLOBIN 9.1 g/dL (12.0-16.0); LYMPHOCYTES # (AUTO) 0.6 (1.0-3.2); LYMPHOCYTES % 11.5 % (18.0-39.1); MEAN CORPUSCULAR HEMOGLOBIN 23.4 pg (28-32); MEAN CORPUSCULAR HGB CONC 29.5 g/dL (31-35); MEAN CORPUSCULAR VOLUME 79.2 fL (81-99); MONOCYTES # (AUTO) 0.6 (0.2-0.8); MONOCYTES % 10.8 % (4.4-11.3); NEUTROPHILS # (AUTO) 3.8 (2.1-6.9); NEUTROPHILS % 73.9 % (38.7-80.0); PLATELET COUNT 196 x10e3/uL (140-360); RED BLOOD COUNT 3.89 x10e6/uL (3.6-5.1); RED CELL DISTRIBUTION WIDTH 23.6 % (11.7-14.4)
[2020-12-01 05:49] LABS: ANION GAP 17.5 mmol/L (8-16); BLOOD UREA NITROGEN 27 mg/dL (7-26); BUN/CREATININE RATIO 35 (6-25); CALCIUM 8.5 mg/dL (8.4-10.2); CARBON DIOXIDE 23 mmol/L (22-29); CHLORIDE 105 mmol/L (98-107); CREATININE, SERUM 0.78 mg/dL (0.57-1.11); EST GLOMERULAR FILTRATION RATE > 60 ML/MIN (60-); GLUCOSE 110 mg/dL (74-118); MAGNESIUM 1.9 MG/DL (1.3-2.1); POTASSIUM 3.5 mmol/L (3.5-5.1); SODIUM 142 mmol/L (136-145)
[2020-12-01] MEDS ORDERED: POTASSIUM CHLORIDE 20 MEQ TAB CR PO ONE (07:26)
[2020-12-01] MEDS: FAMOTIDINE 20 MG TAB PO SCH ×2 (07:30→17:29)
[2020-12-01] MEDS: (Glucosamine/D3/Boswellia Serra (Osteo Bi-Flex Caplet) 1 TAB) PO SCH (08:25)
[2020-12-01] MEDS: IRON SUCROSE 100 MG in SODIUM CHLORIDE 0.9% 100 ML 100 ML IV SCH (08:40)
[2020-12-01] MEDS: FUROSEMIDE INJ 10 MG/ML 4 ML VIAL IV SCH (08:47)
[2020-12-01] MEDS: DOCUSATE SODIUM 100 MG CAP PO SCH ×2 (09:00→17:29)
[2020-12-01] MEDS: METOPROLOL TARTRATE 50 MG TAB PO SCH ×3 (10:06→21:31)
[2020-12-01] MEDS: POTASSIUM CHLORIDE 20 MEQ TAB CR PO SCH (10:06)
[2020-12-01] MEDS: DIGOXIN 0.125 MG TAB PO SCH (10:06)
[2020-12-01] MEDS: ISOSORBIDE MONONITRATE 30 MG TAB CR PO SCH (10:06)
[2020-12-01] MEDS ORDERED: QUETIAPINE FUMARATE 25 MG TAB PO PRN (14:45)
[2020-12-01] MEDS ORDERED: LORAZEPAM 0.5 MG TAB PO PRN (17:15)
[2020-12-01] MEDS: MULTIVITAMINS/MINERALS TAB PO SCH (17:28)
[2020-12-01] MEDS: RIVAROXABAN 15 MG TABLET PO SCH (17:28)
[2020-12-01] MEDS: ASCORBIC ACID 500 MG TAB PO SCH (17:28)
[2020-12-01] MEDS: CHOLECALCIFEROL 1,000 UNIT TAB PO SCH (17:28)
[2020-12-01] MEDS: DIVALPROEX SODIUM 125 MG TABDR...ER PO SCH (17:29)
[2020-12-01] MEDS: QUETIAPINE FUMARATE 25 MG TAB PO SCH (21:31)
[2020-12-01] MEDS: SIMVASTATIN 20 MG TAB PO SCH (21:31)
[2020-12-02] VITALS (9 sets, daily range): BP systolic 126–162; BP diastolic 78–90
[2020-12-02 04:57] LABS: BASOPHILS # (AUTO) 0.1 (0.0-0.1); BASOPHILS % 1.5 % (0.0-1.0); EOSINOPHILS # (AUTO) 0.1 (0.0-0.4); EOSINOPHILS % 2.4 % (0.0-6.0); HEMATOCRIT 31.7 % (34.2-44.1); HEMOGLOBIN 8.8 g/dL (12.0-16.0); LYMPHOCYTES # (AUTO) 0.8 (1.0-3.2); LYMPHOCYTES % 13.7 % (18.0-39.1); MEAN CORPUSCULAR HEMOGLOBIN 21.8 pg (28-32); MEAN CORPUSCULAR HGB CONC 27.8 g/dL (31-35); MEAN CORPUSCULAR VOLUME 78.5 fL (81-99); MONOCYTES # (AUTO) 0.7 (0.2-0.8); MONOCYTES % 11.7 % (4.4-11.3); NEUTROPHILS # (AUTO) 4.1 (2.1-6.9); NEUTROPHILS % 70.4 % (38.7-80.0); PLATELET COUNT 267 x10e3/uL (140-360); RED BLOOD COUNT 4.04 x10e6/uL (3.6-5.1); RED CELL DISTRIBUTION WIDTH 22.1 % (11.7-14.4)
[2020-12-02 05:24] LABS: ANION GAP 12.9 mmol/L (8-16); CALCIUM 8.5 mg/dL (8.4-10.2); CREATININE, SERUM 0.94 mg/dL (0.57-1.11); POTASSIUM 3.9 mmol/L (3.5-5.1)
[2020-12-02] MEDS ORDERED: CEFTRIAXONE SOD 1 GM/NS 50 ML 50 ML IV ONE ×2 (07:30→12:00)
[2020-12-02] MEDS ORDERED: AZITHROMYCIN 500MG/NS 250 ML 250 ML IV ONE ×2 (08:00→12:30)
[2020-12-02] MEDS: (Glucosamine/D3/Boswellia Serra (Osteo Bi-Flex Caplet) 1 TAB) PO SCH (09:00)
[2020-12-02 10:17] LABS: PLATELET ESTIMATE ADEQUATE; PLATELET MORPHOLOGY COMMENT NORMAL; RBC MORPHOLOGY COMMENT NORMAL
[2020-12-02 10:18] LABS: ANISOCYTOSIS SLIG; HYPOCHROMASIA MARKED; POIKILOCYTOSIS SLIGHT
[2020-12-02] MEDS: DIVALPROEX SODIUM 125 MG TABDR...ER PO SCH ×2 (11:41→17:18)
[2020-12-02] MEDS: DOCUSATE SODIUM 100 MG CAP PO SCH ×2 (11:41→17:18)
[2020-12-02] MEDS: FAMOTIDINE 20 MG TAB PO SCH ×2 (11:41→17:18)
[2020-12-02] MEDS: POTASSIUM CHLORIDE 20 MEQ TAB CR PO SCH ×2 (11:42→17:18)
[2020-12-02] MEDS: ISOSORBIDE MONONITRATE 30 MG TAB CR PO SCH (11:42)
[2020-12-02] MEDS: DIGOXIN 0.125 MG TAB PO SCH (11:43)
[2020-12-02] MEDS: METOPROLOL TARTRATE 50 MG TAB PO SCH ×3 (11:43→20:32)
[2020-12-02] MEDS: MULTIVITAMINS/MINERALS TAB PO SCH (11:43)
[2020-12-02] MEDS: ASCORBIC ACID 500 MG TAB PO SCH (11:44)
[2020-12-02] MEDS: RIVAROXABAN 15 MG TABLET PO SCH (11:44)
[2020-12-02] MEDS: CHOLECALCIFEROL 1,000 UNIT TAB PO SCH (11:44)
[2020-12-02] MEDS: FUROSEMIDE INJ 10 MG/ML 4 ML VIAL IV SCH ×2 (16:35→17:18)
[2020-12-02] MEDS: SIMVASTATIN 20 MG TAB PO SCH (20:32)
[2020-12-02] MEDS: QUETIAPINE FUMARATE 25 MG TAB PO SCH (20:32)
[2020-12-03] VITALS (8 sets, daily range): BP systolic 124–159; BP diastolic 65–89
[2020-12-03 02:23] LABS: CLARITY,URINE CLOUDY (CLEAR); COLOR,URINE YELLOW (YELLOW); KETONES,URINE NEGATIVE (NEGATIVE); LEUKOCYTE ESTERASE ,URINE MODERATE (NEGATIVE); NITRITE,URINE NEGATIVE (NEGATIVE); PROTEIN,URINE DIPSTICK 2+ (NEGATIVE); URINE UROBILINOGEN 0.2 mg/dL (0.2 - 1)
[2020-12-03 02:31] LABS: BACTERIA,URINE MODERATE /HPF; EPITHELIAL CELLS,URINE FEW /LPF; RBC,URINE 21-50 /HPF (0-5)
[2020-12-03 04:59] LABS: BASOPHILS # (AUTO) 0.1 (0.0-0.1); BASOPHILS % 1.5 % (0.0-1.0); EOSINOPHILS # (AUTO) 0.2 (0.0-0.4); EOSINOPHILS % 3.1 % (0.0-6.0); HEMOGLOBIN 8.7 g/dL (12.0-16.0); LYMPHOCYTES # (AUTO) 0.9 (1.0-3.2); MEAN CORPUSCULAR HGB CONC 28.1 g/dL (31-35); MEAN CORPUSCULAR VOLUME 78.3 fL (81-99); MONOCYTES # (AUTO) 0.7 (0.2-0.8); MONOCYTES % 12.3 % (4.4-11.3); NEUTROPHILS # (AUTO) 3.6 (2.1-6.9); NEUTROPHILS % 66.4 % (38.7-80.0); PLATELET COUNT 258 x10e3/uL (140-360); RED BLOOD COUNT 3.96 x10e6/uL (3.6-5.1); RED CELL DISTRIBUTION WIDTH 22.5 % (11.7-14.4)
[2020-12-03 05:09] LABS: INR 1.78; PROTHROMBIN TIME 22.1 seconds (11.9-14.5)
[2020-12-03 05:10] LABS: PARTIAL THROMBOPLASTIN TIME 38.9 seconds (23.8-35.5)
[2020-12-03 05:17] LABS: ALBUMIN 3.2 g/dL (3.5-5.0); ANION GAP 14.7 mmol/L (8-16); CALCIUM 8.8 mg/dL (8.4-10.2); CREATININE, SERUM 0.91 mg/dL (0.57-1.11); POTASSIUM 3.7 mmol/L (3.5-5.1)
[2020-12-03] MEDS: FAMOTIDINE 20 MG TAB PO SCH ×2 (07:58→15:45)
[2020-12-03] MEDS: (Glucosamine/D3/Boswellia Serra (Osteo Bi-Flex Caplet) 1 TAB) PO SCH (09:00)
[2020-12-03] MEDS: DIVALPROEX SODIUM 125 MG TABDR...ER PO SCH ×3 (09:04→20:55)
[2020-12-03] MEDS: FUROSEMIDE INJ 10 MG/ML 4 ML VIAL IV SCH ×2 (09:04→17:40)
[2020-12-03] MEDS: DOCUSATE SODIUM 100 MG CAP PO SCH ×2 (09:04→17:40)
[2020-12-03] MEDS: ISOSORBIDE MONONITRATE 30 MG TAB CR PO SCH (09:04)
[2020-12-03] MEDS: MULTIVITAMINS/MINERALS TAB PO SCH (09:05)
[2020-12-03] MEDS: ASCORBIC ACID 500 MG TAB PO SCH (09:05)
[2020-12-03] MEDS: DIGOXIN 0.125 MG TAB PO SCH (09:05)
[2020-12-03] MEDS: CHOLECALCIFEROL 1,000 UNIT TAB PO SCH (09:05)
[2020-12-03] MEDS: METOPROLOL TARTRATE 50 MG TAB PO SCH ×3 (09:05→20:56)
[2020-12-03] MEDS: POTASSIUM CHLORIDE 20 MEQ TAB CR PO SCH ×2 (09:06→17:40)
[2020-12-03] MEDS: CEFTRIAXONE SOD 1 GM/NS 50 ML 50 ML IV SCH (15:45)
[2020-12-03] MEDS: QUETIAPINE FUMARATE 25 MG TAB PO SCH (20:56)
[2020-12-03] MEDS: SIMVASTATIN 20 MG TAB PO SCH (20:56)
[2020-12-04] VITALS (9 sets, daily range): BP systolic 117–169; BP diastolic 56–96
[2020-12-04 05:06] LABS: BASOPHILS # (AUTO) 0.1 (0.0-0.1); BASOPHILS % 1.5 % (0.0-1.0); EOSINOPHILS # (AUTO) 0.1 (0.0-0.4); EOSINOPHILS % 2.5 % (0.0-6.0); HEMATOCRIT 31.4 % (34.2-44.1); HEMOGLOBIN 8.8 g/dL (12.0-16.0); LYMPHOCYTES # (AUTO) 0.6 (1.0-3.2); LYMPHOCYTES % 11.5 % (18.0-39.1); MEAN CORPUSCULAR HEMOGLOBIN 21.9 pg (28-32); MEAN CORPUSCULAR VOLUME 78.3 fL (81-99); MONOCYTES # (AUTO) 0.6 (0.2-0.8); MONOCYTES % 10.7 % (4.4-11.3); NEUTROPHILS # (AUTO) 3.9 (2.1-6.9); NEUTROPHILS % 73.4 % (38.7-80.0); PLATELET COUNT 255 x10e3/uL (140-360); RED BLOOD COUNT 4.01 x10e6/uL (3.6-5.1); RED CELL DISTRIBUTION WIDTH 23.8 % (11.7-14.4)
[2020-12-04 05:20] LABS: INR 1.26; PROTHROMBIN TIME 16.6 seconds (11.9-14.5)
[2020-12-04 05:21] LABS: PARTIAL THROMBOPLASTIN TIME 32.5 seconds (23.8-35.5)
[2020-12-04 05:29] LABS: ANION GAP 13.9 mmol/L (8-16); BLOOD UREA NITROGEN 29 mg/dL (7-26); BUN/CREATININE RATIO 35 (6-25); CALCIUM 8.5 mg/dL (8.4-10.2); CARBON DIOXIDE 31 mmol/L (22-29); CHLORIDE 105 mmol/L (98-107); CREATININE, SERUM 0.82 mg/dL (0.57-1.11); EST GLOMERULAR FILTRATION RATE > 60 ML/MIN (60-); GLUCOSE 101 mg/dL (74-118); POTASSIUM 3.9 mmol/L (3.5-5.1); SODIUM 146 mmol/L (136-145)
[2020-12-04 07:25] LABS: EOSINOPHILS % (MANUAL) 3 % (0-7); LYMPHOCYTES % (MANUAL) 13 % (19-48); MONOCYTES % (MANUAL) 6 % (3.4-9.0); NEUTROPHILS % (MANUAL) 78 % (40-74); NUCLEATED RED BLOOD CELLS 1
[2020-12-04 07:26] LABS: ANISOCYTOSIS MARKED; HYPOCHROMASIA SLIGHT; POLYCHROMASIA FEW
[2020-12-04 07:27] LABS: OVALOCYTES FEW; PLATELET ESTIMATE ADEQUATE; PLATELET MORPHOLOGY COMMENT NORMAL; RBC MORPHOLOGY COMMENT ABNORMAL
[2020-12-04] MEDS: DOCUSATE SODIUM 100 MG CAP PO SCH ×2 (09:06→17:14)
[2020-12-04] MEDS: FUROSEMIDE INJ 10 MG/ML 4 ML VIAL IV SCH ×2 (09:06→17:14)
[2020-12-04] MEDS: DIVALPROEX SODIUM 125 MG TABDR...ER PO SCH ×3 (09:06→21:02)
[2020-12-04] MEDS: FAMOTIDINE 20 MG TAB PO SCH ×2 (09:06→17:14)
[2020-12-04] MEDS: POTASSIUM CHLORIDE 20 MEQ TAB CR PO SCH ×2 (09:07→17:14)
[2020-12-04] MEDS: ISOSORBIDE MONONITRATE 30 MG TAB CR PO SCH (09:07)
[2020-12-04] MEDS: MULTIVITAMINS/MINERALS TAB PO SCH (09:08)
[2020-12-04] MEDS: METOPROLOL TARTRATE 50 MG TAB PO SCH ×3 (09:08→21:13)
[2020-12-04] MEDS: DIGOXIN 0.125 MG TAB PO SCH (09:08)
[2020-12-04] MEDS: ASCORBIC ACID 500 MG TAB PO SCH (09:08)
[2020-12-04] MEDS: CHOLECALCIFEROL 1,000 UNIT TAB PO SCH (09:09)
[2020-12-04] MEDS: (Glucosamine/D3/Boswellia Serra (Osteo Bi-Flex Caplet) 1 TAB) PO SCH (09:59)
[2020-12-04] MEDS: CEFTRIAXONE SOD 1 GM/NS 50 ML 50 ML IV SCH (17:14)
[2020-12-04] MEDS: QUETIAPINE FUMARATE 25 MG TAB PO SCH (21:02)
[2020-12-04] MEDS: SIMVASTATIN 20 MG TAB PO SCH (21:02)
[2020-12-05] VITALS: BP 149/95
[2020-12-05 04:00] VITALS: BP 151/77
[2020-12-05 07:11] LABS: BASOPHILS # (AUTO) 0.1 (0.0-0.1); BASOPHILS % 1.4 % (0.0-1.0); EOSINOPHILS # (AUTO) 0.1 (0.0-0.4); EOSINOPHILS % 2.2 % (0.0-6.0); HEMATOCRIT 37.5 % (34.2-44.1); HEMOGLOBIN 10.3 g/dL (12.0-16.0); LYMPHOCYTES # (AUTO) 0.7 (1.0-3.2); LYMPHOCYTES % 13.4 % (18.0-39.1); MEAN CORPUSCULAR HEMOGLOBIN 22.1 pg (28-32); MEAN CORPUSCULAR HGB CONC 27.5 g/dL (31-35); MEAN CORPUSCULAR VOLUME 80.5 fL (81-99); MONOCYTES # (AUTO) 0.7 (0.2-0.8); MONOCYTES % 13.2 % (4.4-11.3); NEUTROPHILS # (AUTO) 3.5 (2.1-6.9); NEUTROPHILS % 69.4 % (38.7-80.0); PLATELET COUNT 251 x10e3/uL (140-360); RED BLOOD COUNT 4.66 x10e6/uL (3.6-5.1); RED CELL DISTRIBUTION WIDTH 25.1 % (11.7-14.4)
[2020-12-05 07:34] LABS: ANION GAP 17.1 mmol/L (8-16); CALCIUM 8.6 mg/dL (8.4-10.2); CREATININE, SERUM 0.95 mg/dL (0.57-1.11); POTASSIUM 4.1 mmol/L (3.5-5.1)
[2020-12-05 08:33] VITALS: BP 116/80
[2020-12-05 08:54] VITALS: BP 116/80
[2020-12-05 09:13] LABS: HYPOCHROMASIA SLIGHT; POLYCHROMASIA FEW
[2020-12-05 09:14] LABS: POIKILOCYTOSIS SLIGHT
[2020-12-05 09:15] LABS: OVALOCYTES FEW; PLATELET ESTIMATE ADEQUATE; PLATELET MORPHOLOGY COMMENT NORMAL; RBC MORPHOLOGY COMMENT ABNORMAL
[2020-12-05] MEDS: DOCUSATE SODIUM 100 MG CAP PO SCH (09:52)
[2020-12-05] MEDS: DIVALPROEX SODIUM 125 MG TABDR...ER PO SCH (09:52)
[2020-12-05] MEDS: FAMOTIDINE 20 MG TAB PO SCH (09:52)
[2020-12-05] MEDS: FUROSEMIDE INJ 10 MG/ML 4 ML VIAL IV SCH (09:52)
[2020-12-05] MEDS: (Glucosamine/D3/Boswellia Serra (Osteo Bi-Flex Caplet) 1 TAB) PO SCH (09:53)
[2020-12-05] MEDS: ISOSORBIDE MONONITRATE 30 MG TAB CR PO SCH (09:53)
[2020-12-05] MEDS: POTASSIUM CHLORIDE 20 MEQ TAB CR PO SCH (09:53)
[2020-12-05] MEDS: METOPROLOL TARTRATE 50 MG TAB PO SCH (09:54)
[2020-12-05] MEDS: CHOLECALCIFEROL 1,000 UNIT TAB PO SCH (09:54)
[2020-12-05] MEDS: ASCORBIC ACID 500 MG TAB PO SCH (09:54)
[2020-12-05] MEDS: MULTIVITAMINS/MINERALS TAB PO SCH (09:54)
[2020-12-05] MEDS: DIGOXIN 0.125 MG TAB PO SCH (10:00)
[2020-12-05] MEDS ORDERED: SEROQUEL25 MG PO (10:57)
[2020-12-05] MEDS ORDERED: FUROSEMIDE40 MG PO (10:57)
[2020-12-05] MEDS ORDERED: KLOR-CON M2020 MEQ PO (10:57)
[2020-12-05] MEDS ORDERED: ATIVAN0.5 MG PO (10:57)
[2020-12-05] MEDS ORDERED: DIVALPROEX SOD125 M1 PO (10:57)
[2020-12-05] MEDS ORDERED: CEFUROXIME250 MG PO (11:01)
[2020-12-05] MEDS ORDERED: VALTREX500 MG PO (11:26)
[2020-12-05] MEDS ORDERED: VALACYCLOVIR HCL 500 MG TAB PO SCH (11:30)
[2020-12-05 12:22] VITALS: BP 154/70
[2020-12-05] MEDS ORDERED: ACYCLOVIR SODIUM INJ 1,000 MG in SODIUM CHLORIDE 0.9% 250ML 250 ML IV ONE (12:30)
== END 2020-12-05 13:45 | disposition home or self-care (01) | DRG 291 ==
LOC: ER 16:43 → ERHOLD 18:44 → MED/SURG 21:43 → OBSVTOIN 11-28 14:57 → MED/SURG2 12-03 23:09
PROVIDERS: ADMIT Internal Medicine; ATTEND Internal Medicine
DX: I11.0 Hypertensive heart disease with heart failure (principal); I50.21 Acute systolic (congestive) heart failure; G92 Toxic encephalopathy; I48.20 Chronic atrial fibrillation, unspecified; N39.0 Urinary tract infection, site not specified; F03.91 Unspecified dementia, unspecified severity, with behavioral disturbance; F05 Delirium due to known physiological condition; D64.9 Anemia, unspecified; E78.5 Hyperlipidemia, unspecified; D50.9 Iron deficiency anemia, unspecified; I34.0 Nonrheumatic mitral (valve) insufficiency; Z85.3 Personal history of malignant neoplasm of breast; I25.2 Old myocardial infarction; F03.90 Unspecified dementia, unspecified severity, without behavioral disturbance, psychotic disturbance, mood disturbance, and anxiety; E87.6 Hypokalemia; J44.9 Chronic obstructive pulmonary disease, unspecified; B02.9 Zoster without complications; B95.4 Other streptococcus as the cause of diseases classified elsewhere
CPT/HCPCS: 32555; 36415; 51700; 71045; 71250; 74230; 74470; 80048; 80053; 80061; 80162; 81001; 82550; 82553; 82607; 82728; 82746; 83036; 83540; 83735; 83880; 84100; 84436; 84443; 84466; 84479; 84484; 85025; 85045; 85610; 85730; 87086; 93005; 93306; 97139; 99251; 99284; G0378; J0456; J0696; J1630; J1756; J1940; J7050; U0002

== ENCOUNTER 2020-12-08 12:51 | Emergency (ER) | payer MEDICARE ==
[~2020-12-08] VITALS: Ht 165.1 cm; Wt 75.7 kg
[~2020-12-08 12:51] MED LIST changes: +ATIVAN0.5 MG PO; +CEFUROXIME250 MG PO; +DIVALPROEX SOD125 M1 PO; +FUROSEMIDE40 MG PO; +LASIX20 MG PO; +SEROQUEL25 MG PO; +VALTREX500 MG PO
[2020-12-08 13:20] LABS: BASOPHILS % 1.2 % (0.0-1.0); EOSINOPHILS # (AUTO) 0.1 (0.0-0.4); EOSINOPHILS % 3.1 % (0.0-6.0); HEMATOCRIT 38.8 % (34.2-44.1); HEMOGLOBIN 10.8 g/dL (12.0-16.0); LYMPHOCYTES # (AUTO) 0.9 (1.0-3.2); MEAN CORPUSCULAR HEMOGLOBIN 22.2 pg (28-32); MEAN CORPUSCULAR HGB CONC 27.8 g/dL (31-35); MEAN CORPUSCULAR VOLUME 79.7 fL (81-99); MONOCYTES # (AUTO) 0.5 (0.2-0.8); MONOCYTES % 14.9 % (4.4-11.3); NEUTROPHILS # (AUTO) 1.7 (2.1-6.9); NEUTROPHILS % 52.9 % (38.7-80.0); PLATELET COUNT 245 x10e3/uL (140-360); RED BLOOD COUNT 4.87 x10e6/uL (3.6-5.1); RED CELL DISTRIBUTION WIDTH 25.5 % (11.7-14.4)
[2020-12-08 13:36] LABS: INR 2.82; PROTHROMBIN TIME 32.1 seconds (11.9-14.5)
[2020-12-08 13:45] LABS: ALBUMIN 3.2 g/dL (3.5-5.0); ALBUMIN/GLOBULIN RATIO 0.9 (0.8-2.0); ANION GAP 14.3 mmol/L (8-16); CALCIUM 8.2 mg/dL (8.4-10.2); CREATININE, SERUM 1.16 mg/dL (0.57-1.11); MAGNESIUM 2.3 MG/DL (1.3-2.1); POTASSIUM 4.3 mmol/L (3.5-5.1)
[2020-12-08 13:51] LABS: CREATINE KINASE MB 7.9 ng/mL (0-5.0)
[2020-12-08] MEDS ORDERED: SODIUM CHLORIDE 0.9% 500ML 500 ML IV ONE (15:00)
== END 2020-12-08 17:31 | disposition home or self-care (01) ==
LOC: ER 13:15
DX: R19.7 Diarrhea, unspecified (principal); K92.1 Melena; N28.9 Disorder of kidney and ureter, unspecified
CPT/HCPCS: 36415; 80053; 82270; 82550; 82553; 83735; 84484; 85025; 85610; 85730; 86850; 86900; 93005; 99284; J7040

== ENCOUNTER 2021-01-08 01:20 | Inpatient (IN) | payer MEDICARE ==
[~2021-01-08] VITALS: Ht 165.1 cm; Wt 75.7 kg
[2021-01-08 01:44] LABS: CLARITY,URINE CLOUDY (CLEAR); COLOR,URINE YELLOW (YELLOW); KETONES,URINE NEGATIVE (NEGATIVE); LEUKOCYTE ESTERASE ,URINE SMALL (NEGATIVE); NITRITE,URINE NEGATIVE (NEGATIVE); PROTEIN,URINE DIPSTICK >=300 (NEGATIVE); URINE UROBILINOGEN 0.2 mg/dL (0.2 - 1)
[2021-01-08 01:51] LABS: AMORPHOUS SEDIMENT,URINE FEW (FEW); BACTERIA,URINE FEW /HPF; EPITHELIAL CELLS,URINE RARE /LPF; RBC,URINE 21-50 /HPF (0-5)
[2021-01-08 01:54] LABS: BASOPHILS # (AUTO) 0.1 (0.0-0.1); BASOPHILS % 1.3 % (0.0-1.0); EOSINOPHILS # (AUTO) 0.3 (0.0-0.4); HEMATOCRIT 26.2 % (34.2-44.1); HEMOGLOBIN 7.6 g/dL (12.0-16.0); LYMPHOCYTES # (AUTO) 1.2 (1.0-3.2); LYMPHOCYTES % 21.8 % (18.0-39.1); MEAN CORPUSCULAR HEMOGLOBIN 25.1 pg (28-32); MEAN CORPUSCULAR VOLUME 86.5 fL (81-99); MONOCYTES # (AUTO) 0.5 (0.2-0.8); MONOCYTES % 9.3 % (4.4-11.3); NEUTROPHILS # (AUTO) 3.4 (2.1-6.9); NEUTROPHILS % 60.9 % (38.7-80.0); PLATELET COUNT 231 x10e3/uL (140-360); RED BLOOD COUNT 3.03 x10e6/uL (3.6-5.1); RED CELL DISTRIBUTION WIDTH 28.8 % (11.7-14.4)
[2021-01-08] MEDS ORDERED: ASPIRIN 81 MG CHEW TAB PO ONE (02:00)
[2021-01-08 02:09] LABS: ALBUMIN 3.1 g/dL (3.5-5.0); ALBUMIN/GLOBULIN RATIO 0.8 (0.8-2.0); ANION GAP 14.6 mmol/L (8-16); CALCIUM 8.5 mg/dL (8.4-10.2); CREATININE, SERUM 1.12 mg/dL (0.57-1.11); POTASSIUM 3.6 mmol/L (3.5-5.1)
[2021-01-08 02:15] LABS: CREATINE KINASE MB 1.7 ng/mL (0-5.0)
[2021-01-08] MEDS: PANTOPRAZOLE INJ 80 MG in SODIUM CHLORIDE 0.9% 100 ML IV SCH ×3 (02:56→22:21)
[2021-01-08 03:21] LABS: INR 1.86; PROTHROMBIN TIME 22.9 seconds (11.9-14.5)
[2021-01-08 03:22] LABS: PARTIAL THROMBOPLASTIN TIME 44.6 seconds (23.8-35.5)
[2021-01-08] MEDS ORDERED: SODIUM CHLORIDE 0.9% 50ML 50 ML ONE (03:29)
[2021-01-08] MEDS ORDERED: IOPAMIDOL 370 MG/ML 200 ML INFUS..BTL INJ ONE (03:29)
[2021-01-08] MEDS ORDERED: FUROSEMIDE INJ 10 MG/ML 4 ML VIAL IV ONE (05:00)
[2021-01-08 06:24] VITALS: BP 167/82
[2021-01-08 06:56] LABS: HEMATOCRIT 25.3 % (34.2-44.1); HEMOGLOBIN 7.4 g/dL (12.0-16.0)
[2021-01-08 08:14] VITALS: BP 126/98
[2021-01-08] MEDS ORDERED: VALACYCLOVIR500 MG PO (08:14)
[2021-01-08] MEDS ORDERED: LYRICA75 MG PO (08:28)
[2021-01-08 08:55] VITALS: BP 126/98
[2021-01-08] MEDS: D3 PO SCH (09:00)
[2021-01-08] MEDS: GLUCOSAMINE PO SCH (09:00)
[2021-01-08] MEDS: BOSWELLIA SERRA PO SCH (09:00)
[2021-01-08] MEDS: FUROSEMIDE INJ 10 MG/ML 4 ML VIAL IV SCH (09:16)
[2021-01-08] MEDS: ISOSORBIDE MONONITRATE 30 MG TAB CR PO SCH (09:16)
[2021-01-08] MEDS: ASCORBIC ACID 500 MG TAB PO SCH (09:17)
[2021-01-08] MEDS: MULTIVITAMINS/MINERALS TAB PO SCH (09:17)
[2021-01-08] MEDS: CHOLECALCIFEROL 1,000 UNIT TAB PO SCH (09:17)
[2021-01-08] MEDS: METOPROLOL TARTRATE 50 MG TAB PO SCH ×3 (09:17→21:00)
[2021-01-08 11:24] LABS: HEMATOCRIT 23.4 % (34.2-44.1)
[2021-01-08 11:30] LABS: HEMOGLOBIN 6.8 g/dL (12.0-16.0)
[2021-01-08] MEDS ORDERED: SODIUM CHLORIDE 0.9% 250ML 250 ML IV ONE (11:45)
[2021-01-08 11:47] VITALS: BP 146/82
[2021-01-08 11:50] LABS: CREATINE KINASE MB 1.9 ng/mL (0-5.0)
[2021-01-08] MEDS ORDERED: PANTOPRAZOLE 40 MG 10ML VIAL ONE ×2 (13:16→20:50)
[2021-01-08] MEDS ORDERED: SODIUM CHLORIDE 0.9% 100 ML ONE ×2 (13:17→20:51)
[2021-01-08 16:27] VITALS: BP 175/92
[2021-01-08] MEDS ORDERED: RIVAROXABAN 15 MG TABLET PO SCH (17:00)
[2021-01-08 20:12] VITALS: BP 135/71
[2021-01-08 20:45] LABS: HEMATOCRIT 25.7 % (34.2-44.1); HEMOGLOBIN 7.7 g/dL (12.0-16.0)
[2021-01-08 21:08] LABS: CREATINE KINASE MB 1.7 ng/mL (0-5.0)
[2021-01-09] VITALS (7 sets, daily range): BP systolic 130–176; BP diastolic 71–99
[2021-01-09 06:34] LABS: BASOPHILS # (AUTO) 0.1 (0.0-0.1); BASOPHILS % 1.3 % (0.0-1.0); EOSINOPHILS # (AUTO) 0.1 (0.0-0.4); EOSINOPHILS % 1.9 % (0.0-6.0); HEMOGLOBIN 8.2 g/dL (12.0-16.0); LYMPHOCYTES % 21.1 % (18.0-39.1); MEAN CORPUSCULAR HEMOGLOBIN 25.9 pg (28-32); MEAN CORPUSCULAR HGB CONC 30.4 g/dL (31-35); MEAN CORPUSCULAR VOLUME 85.4 fL (81-99); MONOCYTES # (AUTO) 0.5 (0.2-0.8); MONOCYTES % 10.6 % (4.4-11.3); NEUTROPHILS # (AUTO) 3.1 (2.1-6.9); NEUTROPHILS % 64.7 % (38.7-80.0); PLATELET COUNT 213 x10e3/uL (140-360); RED BLOOD COUNT 3.16 x10e6/uL (3.6-5.1); RED CELL DISTRIBUTION WIDTH 27.1 % (11.7-14.4)
[2021-01-09 06:54] LABS: ANION GAP 15.3 mmol/L (8-16); CALCIUM 8.5 mg/dL (8.4-10.2); MAGNESIUM 2.1 MG/DL (1.3-2.1); PHOSPHORUS 3.3 MG/DL (2.3-4.7); POTASSIUM 3.3 mmol/L (3.5-5.1)
[2021-01-09] MEDS: PANTOPRAZOLE INJ 80 MG in SODIUM CHLORIDE 0.9% 100 ML IV SCH ×3 (07:00→23:37)
[2021-01-09] MEDS: METOPROLOL TARTRATE 50 MG TAB PO SCH ×3 (09:00→21:00)
[2021-01-09] MEDS: D3 PO SCH (09:00)
[2021-01-09] MEDS ORDERED: DIGOXIN 0.125 MG TAB PO SCH (09:00)
[2021-01-09] MEDS: BOSWELLIA SERRA PO SCH (09:00)
[2021-01-09] MEDS ORDERED: PANTOPRAZOLE 40 MG 10ML VIAL IV SCH (09:00)
[2021-01-09] MEDS: ASCORBIC ACID 500 MG TAB PO SCH (09:00)
[2021-01-09] MEDS: MULTIVITAMINS/MINERALS TAB PO SCH (09:00)
[2021-01-09] MEDS: GLUCOSAMINE PO SCH (09:00)
[2021-01-09] MEDS: ISOSORBIDE MONONITRATE 30 MG TAB CR PO SCH (09:00)
[2021-01-09] MEDS: CHOLECALCIFEROL 1,000 UNIT TAB PO SCH (09:00)
[2021-01-09] MEDS: FUROSEMIDE INJ 10 MG/ML 4 ML VIAL IV SCH (10:18)
[2021-01-09 11:42] LABS: HEMOGLOBIN 8.5 g/dL (12.0-16.0)
[2021-01-09] MEDS ORDERED: SODIUM CHLORIDE 0.9% 250ML 250 ML ONE (13:23)
[2021-01-09] MEDS ORDERED: POTASSIUM CHLORIDE 10MEQ/100ML 100 ML IV ONE (13:30)
[2021-01-09] MEDS ORDERED: PROPOFOL IV EMULSION 10 MG/ML 20 ML VIAL ONE (13:38)
[2021-01-09] MEDS ORDERED: ETOMIDATE 2 MG/ML 10 ML INJ IV ONE (13:38)
[2021-01-09] MEDS ORDERED: HEPARIN SOD (PORCINE) 1000 UNIT/ML SDV ONE (13:58)
[2021-01-09] MEDS ORDERED: FUROSEMIDE40 MG PO (14:47)
[2021-01-09] MEDS: MORPHINE SULFATE INJ 2 MG/ML SYR IV PRN (16:23)
[2021-01-09 19:12] LABS: HEMATOCRIT 27.2 % (34.2-44.1); HEMOGLOBIN 8.2 g/dL (12.0-16.0)
[2021-01-09] MEDS ORDERED: PANTOPRAZOLE 40 MG 10ML VIAL ONE (23:41)
[2021-01-09] MEDS ORDERED: SODIUM CHLORIDE 0.9% 100 ML ONE (23:41)
[2021-01-10] VITALS (9 sets, daily range): BP systolic 124–177; BP diastolic 59–89
[2021-01-10] MEDS: MORPHINE SULFATE INJ 2 MG/ML SYR IV PRN ×2 (00:08→10:58)
[2021-01-10 06:45] LABS: BASOPHILS # (AUTO) 0.1 (0.0-0.1); BASOPHILS % 1.1 % (0.0-1.0); EOSINOPHILS # (AUTO) 0.2 (0.0-0.4); EOSINOPHILS % 3.7 % (0.0-6.0); HEMATOCRIT 25.9 % (34.2-44.1); HEMOGLOBIN 7.8 g/dL (12.0-16.0); LYMPHOCYTES # (AUTO) 0.7 (1.0-3.2); LYMPHOCYTES % 14.2 % (18.0-39.1); MEAN CORPUSCULAR HEMOGLOBIN 25.7 pg (28-32); MEAN CORPUSCULAR HGB CONC 30.1 g/dL (31-35); MEAN CORPUSCULAR VOLUME 85.2 fL (81-99); MONOCYTES # (AUTO) 0.5 (0.2-0.8); NEUTROPHILS # (AUTO) 3.3 (2.1-6.9); NEUTROPHILS % 70.8 % (38.7-80.0); PLATELET COUNT 224 x10e3/uL (140-360); RED BLOOD COUNT 3.04 x10e6/uL (3.6-5.1)
[2021-01-10 07:06] LABS: ANION GAP 15.1 mmol/L (8-16); BLOOD UREA NITROGEN 16 mg/dL (7-26); BUN/CREATININE RATIO 20 (6-25); CALCIUM 8.2 mg/dL (8.4-10.2); CARBON DIOXIDE 25 mmol/L (22-29); CHLORIDE 108 mmol/L (98-107); EST GLOMERULAR FILTRATION RATE > 60 ML/MIN (60-); GLUCOSE 97 mg/dL (74-118); POTASSIUM 3.1 mmol/L (3.5-5.1); SODIUM 145 mmol/L (136-145)
[2021-01-10] MEDS: BOSWELLIA SERRA PO SCH (08:12)
[2021-01-10] MEDS: D3 PO SCH (08:12)
[2021-01-10] MEDS: GLUCOSAMINE PO SCH (08:12)
[2021-01-10] MEDS: ISOSORBIDE MONONITRATE 30 MG TAB CR PO SCH (08:19)
[2021-01-10] MEDS: DIGOXIN 0.125 MG TAB PO SCH (08:19)
[2021-01-10] MEDS: FUROSEMIDE INJ 10 MG/ML 4 ML VIAL IV SCH (08:19)
[2021-01-10] MEDS: ASCORBIC ACID 500 MG TAB PO SCH (08:20)
[2021-01-10] MEDS: METOPROLOL TARTRATE 50 MG TAB PO SCH ×3 (08:20→21:00)
[2021-01-10] MEDS: CHOLECALCIFEROL 1,000 UNIT TAB PO SCH (08:20)
[2021-01-10] MEDS: MULTIVITAMINS/MINERALS TAB PO SCH (08:20)
[2021-01-10] MEDS ORDERED: POTASSIUM CHLORIDE 10MEQ EA PO NR (10:45)
[2021-01-10] MEDS: LEVOFLOXACIN 250MG/D5W 50ML 50 ML IV SCH (11:03)
[2021-01-10 12:32] LABS: HEMATOCRIT 26.9 % (34.2-44.1)
[2021-01-10] MEDS ORDERED: PANTOPRAZOLE 40 MG 10ML VIAL ONE ×2 (13:43→23:29)
[2021-01-10] MEDS ORDERED: SODIUM CHLORIDE 0.9% 100 ML ONE ×2 (13:44→23:30)
[2021-01-10] MEDS: PANTOPRAZOLE INJ 80 MG in SODIUM CHLORIDE 0.9% 100 ML IV SCH (13:46)
[2021-01-10] MEDS: FERROUS SULFATE 325 MG TAB PO SCH (17:25)
[2021-01-10 17:35] LABS: HEMATOCRIT 29.4 % (34.2-44.1); HEMOGLOBIN 8.6 g/dL (12.0-16.0)
[2021-01-11] VITALS (8 sets, daily range): BP systolic 123–178; BP diastolic 60–122
[2021-01-11] MEDS: PANTOPRAZOLE INJ 80 MG in SODIUM CHLORIDE 0.9% 100 ML IV SCH ×3 (02:17→23:54)
[2021-01-11 06:25] LABS: BASOPHILS # (AUTO) 0.1 (0.0-0.1); EOSINOPHILS # (AUTO) 0.1 (0.0-0.4); EOSINOPHILS % 1.5 % (0.0-6.0); HEMATOCRIT 30.5 % (34.2-44.1); HEMOGLOBIN 9.2 g/dL (12.0-16.0); LYMPHOCYTES # (AUTO) 1.1 (1.0-3.2); MEAN CORPUSCULAR HEMOGLOBIN 26.1 pg (28-32); MEAN CORPUSCULAR HGB CONC 30.2 g/dL (31-35); MEAN CORPUSCULAR VOLUME 86.6 fL (81-99); MONOCYTES # (AUTO) 0.7 (0.2-0.8); MONOCYTES % 11.6 % (4.4-11.3); NEUTROPHILS # (AUTO) 4.1 (2.1-6.9); NEUTROPHILS % 67.6 % (38.7-80.0); PLATELET COUNT 244 x10e3/uL (140-360); RED BLOOD COUNT 3.52 x10e6/uL (3.6-5.1); RED CELL DISTRIBUTION WIDTH 27.1 % (11.7-14.4)
[2021-01-11 06:52] LABS: ANION GAP 14.5 mmol/L (8-16); CALCIUM 8.7 mg/dL (8.4-10.2); CREATININE, SERUM 0.98 mg/dL (0.57-1.11); POTASSIUM 3.5 mmol/L (3.5-5.1)
[2021-01-11] MEDS: FUROSEMIDE INJ 10 MG/ML 4 ML VIAL IV SCH (08:20)
[2021-01-11] MEDS: GLUCOSAMINE PO SCH (08:20)
[2021-01-11] MEDS: D3 PO SCH (08:20)
[2021-01-11] MEDS: BOSWELLIA SERRA PO SCH (08:20)
[2021-01-11] MEDS: CHOLECALCIFEROL 1,000 UNIT TAB PO SCH (08:23)
[2021-01-11] MEDS: MULTIVITAMINS/MINERALS TAB PO SCH (08:23)
[2021-01-11] MEDS: METOPROLOL TARTRATE 50 MG TAB PO SCH ×3 (08:23→21:52)
[2021-01-11] MEDS: ASCORBIC ACID 500 MG TAB PO SCH (08:23)
[2021-01-11] MEDS: ISOSORBIDE MONONITRATE 30 MG TAB CR PO SCH (08:24)
[2021-01-11] MEDS: FERROUS SULFATE 325 MG TAB PO SCH ×2 (08:24→16:24)
[2021-01-11] MEDS: LEVOFLOXACIN 250MG/D5W 50ML 50 ML IV SCH (08:57)
[2021-01-11] MEDS: IRON SUCROSE 100 MG in SODIUM CHLORIDE 0.9% 100 ML 100 ML IV SCH (09:57)
[2021-01-11] MEDS ORDERED: PANTOPRAZOLE 40 MG 10ML VIAL ONE ×2 (12:17→22:04)
[2021-01-11 12:38] LABS: HEMATOCRIT 27.8 % (34.2-44.1); HEMOGLOBIN 8.3 g/dL (12.0-16.0)
[2021-01-11 17:51] LABS: HEMATOCRIT 28.5 % (34.2-44.1); HEMOGLOBIN 8.4 g/dL (12.0-16.0)
[2021-01-11] MEDS ORDERED: SODIUM CHLORIDE 0.9% 100 ML ONE (22:05)
[2021-01-12] VITALS (8 sets, daily range): BP systolic 99–158; BP diastolic 55–85
[2021-01-12] MEDS ORDERED: SODIUM CHLORIDE 0.9% 100 ML ONE (05:05)
[2021-01-12] MEDS ORDERED: PANTOPRAZOLE 40 MG 10ML VIAL ONE ×2 (05:05→14:35)
[2021-01-12 05:38] LABS: BASOPHILS # (AUTO) 0.1 (0.0-0.1); BASOPHILS % 0.8 % (0.0-1.0); EOSINOPHILS # (AUTO) 0.1 (0.0-0.4); EOSINOPHILS % 0.9 % (0.0-6.0); HEMATOCRIT 29.9 % (34.2-44.1); HEMOGLOBIN 8.8 g/dL (12.0-16.0); LYMPHOCYTES # (AUTO) 1.1 (1.0-3.2); LYMPHOCYTES % 15.9 % (18.0-39.1); MEAN CORPUSCULAR HEMOGLOBIN 25.3 pg (28-32); MEAN CORPUSCULAR HGB CONC 29.4 g/dL (31-35); MEAN CORPUSCULAR VOLUME 85.9 fL (81-99); MONOCYTES # (AUTO) 0.8 (0.2-0.8); MONOCYTES % 11.3 % (4.4-11.3); NEUTROPHILS # (AUTO) 4.7 (2.1-6.9); NEUTROPHILS % 70.3 % (38.7-80.0); PLATELET COUNT 243 x10e3/uL (140-360); RED BLOOD COUNT 3.48 x10e6/uL (3.6-5.1); RED CELL DISTRIBUTION WIDTH 26.7 % (11.7-14.4)
[2021-01-12 06:08] LABS: ANION GAP 15.1 mmol/L (8-16); BLOOD UREA NITROGEN 15 mg/dL (7-26); BUN/CREATININE RATIO 18 (6-25); CALCIUM 8.4 mg/dL (8.4-10.2); CARBON DIOXIDE 26 mmol/L (22-29); CHLORIDE 106 mmol/L (98-107); CREATININE, SERUM 0.83 mg/dL (0.57-1.11); EST GLOMERULAR FILTRATION RATE > 60 ML/MIN (60-); GLUCOSE 108 mg/dL (74-118); POTASSIUM 3.1 mmol/L (3.5-5.1); SODIUM 144 mmol/L (136-145)
[2021-01-12] MEDS ORDERED: IOPAMIDOL 300MG/ML 50ML INFUS..BTL IV ONE (06:26)
[2021-01-12] MEDS ORDERED: B&O 60MG R/S 60 MG SUPP PR ONE (06:26)
[2021-01-12] MEDS ORDERED: SODIUM CHLORIDE 0.9% 50ML 50 ML ONE (06:58)
[2021-01-12] MEDS ORDERED: PHENAZOPYRIDINE HCL 100 MG TAB PO PRN (07:45)
[2021-01-12] MEDS: D3 PO SCH (09:00)
[2021-01-12] MEDS: BOSWELLIA SERRA PO SCH (09:00)
[2021-01-12] MEDS: GLUCOSAMINE PO SCH (09:00)
[2021-01-12] MEDS: FERROUS SULFATE 325 MG TAB PO SCH ×2 (09:18→16:41)
[2021-01-12] MEDS: PANTOPRAZOLE INJ 80 MG in SODIUM CHLORIDE 0.9% 100 ML IV SCH ×2 (09:18→16:41)
[2021-01-12] MEDS: FUROSEMIDE INJ 10 MG/ML 4 ML VIAL IV SCH (09:18)
[2021-01-12] MEDS: IRON SUCROSE 100 MG in SODIUM CHLORIDE 0.9% 100 ML 100 ML IV SCH (09:18)
[2021-01-12] MEDS: ISOSORBIDE MONONITRATE 30 MG TAB CR PO SCH (09:20)
[2021-01-12] MEDS: CHOLECALCIFEROL 1,000 UNIT TAB PO SCH (09:21)
[2021-01-12] MEDS: ASCORBIC ACID 500 MG TAB PO SCH (09:21)
[2021-01-12] MEDS: DIGOXIN 0.125 MG TAB PO SCH (09:21)
[2021-01-12] MEDS: MULTIVITAMINS/MINERALS TAB PO SCH (09:21)
[2021-01-12] MEDS: METOPROLOL TARTRATE 50 MG TAB PO SCH ×4 (09:21→20:47)
[2021-01-12] MEDS: LEVOFLOXACIN 250MG/D5W 50ML 50 ML IV SCH (09:26)
[2021-01-12 10:24] LABS: ANISOCYTOSIS MODERATE; HYPOCHROMASIA SLIGHT; OVALOCYTES FEW; POLYCHROMASIA FEW
[2021-01-12 10:25] LABS: ELLIPTOCYTE, RBC SLIGHT; MICROCYTOSIS SLIGHT; PLATELET ESTIMATE ADEQUATE; PLATELET MORPHOLOGY COMMENT NORMAL; RBC MORPHOLOGY COMMENT ABNORMAL
[2021-01-12] MEDS ORDERED: POTASSIUM CHLORIDE 20 MEQ TAB CR PO ONE (16:00)
[2021-01-12] MEDS ORDERED: PROPOFOL IV EMULSION 10 MG/ML 20 ML VIAL ONE (18:09)
[2021-01-12] MEDS ORDERED: SEVOFLURANE INHAL SOLN 250 ML PEN BTL ONE (18:09)
[2021-01-12] MEDS ORDERED: PHENYLEPHRINE HCL 1% 10 MG/ML VIAL ONE (18:09)
[2021-01-12] MEDS ORDERED: LIDOCAINE HCL 2% JELLY 5 ML TUBE ONE (18:09)
[2021-01-12] MEDS ORDERED: LIDOCAINE HCL 2% LOCAL INJ 5 ML SDV VIAL INJ ONE (18:09)
[2021-01-13] VITALS (10 sets, daily range): BP systolic 102–160; BP diastolic 50–85
[2021-01-13] MEDS ORDERED: BISACODYL 5 MG TAB EC PO ONE ×3 (00:15→13:30)
[2021-01-13] MEDS ORDERED: PANTOPRAZOLE 40 MG 10ML VIAL ONE ×2 (03:18→22:57)
[2021-01-13] MEDS ORDERED: SODIUM CHLORIDE 0.9% 100 ML ONE ×2 (03:19→22:59)
[2021-01-13] MEDS: PANTOPRAZOLE INJ 80 MG in SODIUM CHLORIDE 0.9% 100 ML IV SCH ×3 (03:41→23:01)
[2021-01-13] MEDS ORDERED: CITRATE OF MAGNESIA 300ML BOTTLE PO ONE ×2 (05:00→07:00)
[2021-01-13 05:47] LABS: BASOPHILS # (AUTO) 0.1 (0.0-0.1); BASOPHILS % 0.7 % (0.0-1.0); EOSINOPHILS # (AUTO) 0.1 (0.0-0.4); HEMATOCRIT 28.5 % (34.2-44.1); HEMOGLOBIN 8.3 g/dL (12.0-16.0); LYMPHOCYTES % 13.6 % (18.0-39.1); MEAN CORPUSCULAR HEMOGLOBIN 25.2 pg (28-32); MEAN CORPUSCULAR HGB CONC 29.1 g/dL (31-35); MEAN CORPUSCULAR VOLUME 86.6 fL (81-99); MONOCYTES # (AUTO) 0.8 (0.2-0.8); MONOCYTES % 10.8 % (4.4-11.3); NEUTROPHILS # (AUTO) 5.2 (2.1-6.9); NEUTROPHILS % 73.3 % (38.7-80.0); PLATELET COUNT 236 x10e3/uL (140-360); RED BLOOD COUNT 3.29 x10e6/uL (3.6-5.1)
[2021-01-13 06:32] LABS: ANION GAP 12.7 mmol/L (8-16); CALCIUM 8.2 mg/dL (8.4-10.2); CREATININE, SERUM 1.29 mg/dL (0.57-1.11); PHOSPHORUS 3.8 MG/DL (2.3-4.7); POTASSIUM 3.7 mmol/L (3.5-5.1)
[2021-01-13] MEDS ORDERED: DIGOXIN125 MCG PO (06:58)
[2021-01-13] MEDS ORDERED: FERROUS SULFAT325 MG PO (06:58)
[2021-01-13] MEDS: FERROUS SULFATE 325 MG TAB PO SCH ×2 (08:00→17:00)
[2021-01-13 08:43] LABS: ANISOCYTOSIS MODERATE
[2021-01-13 08:44] LABS: HYPOCHROMASIA SLIGHT; OVALOCYTES FEW; POLYCHROMASIA FEW; RBC MORPHOLOGY COMMENT ABNORMAL
[2021-01-13 08:45] LABS: PLATELET ESTIMATE ADEQUATE; PLATELET MORPHOLOGY COMMENT NORMAL
[2021-01-13] MEDS: ASCORBIC ACID 500 MG TAB PO SCH (09:00)
[2021-01-13] MEDS: CHOLECALCIFEROL 1,000 UNIT TAB PO SCH (09:00)
[2021-01-13] MEDS: MULTIVITAMINS/MINERALS TAB PO SCH (09:00)
[2021-01-13] MEDS: BOSWELLIA SERRA PO SCH (09:00)
[2021-01-13] MEDS: GLUCOSAMINE PO SCH (09:00)
[2021-01-13] MEDS: D3 PO SCH (09:00)
[2021-01-13] MEDS: IRON SUCROSE 100 MG in SODIUM CHLORIDE 0.9% 100 ML 100 ML IV SCH (09:01)
[2021-01-13] MEDS: LEVOFLOXACIN 250MG/D5W 50ML 50 ML IV SCH (09:01)
[2021-01-13] MEDS: FUROSEMIDE INJ 10 MG/ML 4 ML VIAL IV SCH (09:01)
[2021-01-13] MEDS: ISOSORBIDE MONONITRATE 30 MG TAB CR PO SCH (09:03)
[2021-01-13] MEDS: METOPROLOL TARTRATE 50 MG TAB PO SCH ×3 (09:03→21:00)
[2021-01-14] VITALS (7 sets, daily range): BP systolic 124–151; BP diastolic 56–80
[2021-01-14] MEDS: FERROUS SULFATE 325 MG TAB PO SCH ×2 (08:36→17:07)
[2021-01-14] MEDS: GLUCOSAMINE PO SCH (08:37)
[2021-01-14] MEDS: IRON SUCROSE 100 MG in SODIUM CHLORIDE 0.9% 100 ML 100 ML IV SCH (08:37)
[2021-01-14] MEDS: PANTOPRAZOLE INJ 80 MG in SODIUM CHLORIDE 0.9% 100 ML IV SCH ×2 (08:37→17:59)
[2021-01-14] MEDS: D3 PO SCH (08:37)
[2021-01-14] MEDS: BOSWELLIA SERRA PO SCH (08:37)
[2021-01-14] MEDS: FUROSEMIDE INJ 10 MG/ML 4 ML VIAL IV SCH (08:37)
[2021-01-14] MEDS: ISOSORBIDE MONONITRATE 30 MG TAB CR PO SCH (08:38)
[2021-01-14] MEDS: DIGOXIN 0.125 MG TAB PO SCH (08:38)
[2021-01-14] MEDS: CHOLECALCIFEROL 1,000 UNIT TAB PO SCH (08:38)
[2021-01-14] MEDS: METOPROLOL TARTRATE 50 MG TAB PO SCH ×3 (08:38→20:30)
[2021-01-14] MEDS: ASCORBIC ACID 500 MG TAB PO SCH (08:38)
[2021-01-14] MEDS: MULTIVITAMINS/MINERALS TAB PO SCH (08:38)
[2021-01-14] MEDS ORDERED: PANTOPRAZOLE 40 MG 10ML VIAL ONE ×2 (08:41→17:11)
[2021-01-14] MEDS: LEVOFLOXACIN 250MG/D5W 50ML 50 ML IV SCH (09:01)
[2021-01-14] MEDS ORDERED: SODIUM CHLORIDE 0.9% 100 ML ONE ×2 (13:36→17:11)
[2021-01-15] VITALS: BP 146/78
[2021-01-15] MEDS ORDERED: PANTOPRAZOLE 40 MG 10ML VIAL ONE (03:10)
[2021-01-15] MEDS ORDERED: SODIUM CHLORIDE 0.9% 250ML 250 ML ONE (03:14)
[2021-01-15] MEDS: PANTOPRAZOLE INJ 80 MG in SODIUM CHLORIDE 0.9% 100 ML IV SCH (03:15)
[2021-01-15 04:00] VITALS: BP 137/70
[2021-01-15 06:41] LABS: BASOPHILS % 0.8 % (0.0-1.0); EOSINOPHILS # (AUTO) 0.1 (0.0-0.4); HEMATOCRIT 30.3 % (34.2-44.1); HEMOGLOBIN 8.9 g/dL (12.0-16.0); LYMPHOCYTES # (AUTO) 0.7 (1.0-3.2); LYMPHOCYTES % 13.8 % (18.0-39.1); MEAN CORPUSCULAR HEMOGLOBIN 25.9 pg (28-32); MEAN CORPUSCULAR HGB CONC 29.4 g/dL (31-35); MEAN CORPUSCULAR VOLUME 88.1 fL (81-99); MONOCYTES # (AUTO) 0.6 (0.2-0.8); NEUTROPHILS # (AUTO) 3.7 (2.1-6.9); NEUTROPHILS % 73.2 % (38.7-80.0); PLATELET COUNT 244 x10e3/uL (140-360); RED BLOOD COUNT 3.44 x10e6/uL (3.6-5.1)
[2021-01-15 07:25] LABS: ALBUMIN 2.8 g/dL (3.5-5.0); ALBUMIN/GLOBULIN RATIO 0.8 (0.8-2.0); ANION GAP 18.1 mmol/L (8-16); CALCIUM 8.3 mg/dL (8.4-10.2); CREATININE, SERUM 1.08 mg/dL (0.57-1.11); MAGNESIUM 2.1 MG/DL (1.3-2.1); POTASSIUM 3.1 mmol/L (3.5-5.1)
[2021-01-15 07:56] VITALS: BP 132/63
[2021-01-15] MEDS: FUROSEMIDE INJ 10 MG/ML 4 ML VIAL IV SCH (09:00)
[2021-01-15] MEDS: IRON SUCROSE 100 MG in SODIUM CHLORIDE 0.9% 100 ML 100 ML IV SCH (09:00)
[2021-01-15] MEDS: D3 PO SCH (09:00)
[2021-01-15] MEDS: BOSWELLIA SERRA PO SCH (09:00)
[2021-01-15] MEDS: GLUCOSAMINE PO SCH (09:00)
[2021-01-15] MEDS: FERROUS SULFATE 325 MG TAB PO SCH (09:00)
[2021-01-15] MEDS: MULTIVITAMINS/MINERALS TAB PO SCH (09:01)
[2021-01-15] MEDS: METOPROLOL TARTRATE 50 MG TAB PO SCH (09:01)
[2021-01-15] MEDS: ASCORBIC ACID 500 MG TAB PO SCH (09:01)
[2021-01-15] MEDS: ISOSORBIDE MONONITRATE 30 MG TAB CR PO SCH (09:01)
[2021-01-15] MEDS: CHOLECALCIFEROL 1,000 UNIT TAB PO SCH (09:01)
[2021-01-15 09:39] VITALS: BP 132/63
[2021-01-15] MEDS: LEVOFLOXACIN 250MG/D5W 50ML 50 ML IV SCH (10:10)
[2021-01-15] MEDS ORDERED: ULTRAM 50MG50 MG PO (10:24)
[2021-01-15] MEDS ORDERED: PANTOPRAZOLE SO40 MG PO (10:24)
[2021-01-15] MEDS ORDERED: FERROUS SULFAT325 MG PO (10:29)
[2021-01-15] MEDS ORDERED: DIGOXIN125 MCG PO (10:29)
[2021-01-15 11:19] VITALS: BP 135/71
== END 2021-01-15 12:35 | disposition home or self-care (01) | DRG 659 ==
LOC: ER 02:01 → ERHOLD 02:33 → MED/SURG3 06:12
PROVIDERS: ADMIT Internal Medicine; ATTEND Internal Medicine
PROC: 30233N1 Transfusion of Nonautologous Red Blood Cells into Peripheral Vein, Percutaneous Approach (ICD-10-PCS; 2021-01-08)
PROC: 0DB78ZX Excision of Stomach, Pylorus, Via Natural or Artificial Opening Endoscopic, Diagnostic (ICD-10-PCS; 2021-01-09)
PROC: 0TC08ZZ Extirpation of Matter from Right Kidney, Via Natural or Artificial Opening Endoscopic (ICD-10-PCS; 2021-01-12)
PROC: BT141ZZ Fluoroscopy of Kidneys, Ureters and Bladder using Low Osmolar Contrast (ICD-10-PCS; 2021-01-12)
PROC: 0T768DZ Dilation of Right Ureter with Intraluminal Device, Via Natural or Artificial Opening Endoscopic (ICD-10-PCS; principal; 2021-01-12 08:00)
PROC: 0DBP8ZZ Excision of Rectum, Via Natural or Artificial Opening Endoscopic (ICD-10-PCS; 2021-01-13)
PROC: 0DBH8ZX Excision of Cecum, Via Natural or Artificial Opening Endoscopic, Diagnostic (ICD-10-PCS; 2021-01-13 15:00)
DX: N13.6 Pyonephrosis (principal); I50.23 Acute on chronic systolic (congestive) heart failure; C18.0 Malignant neoplasm of cecum; I48.20 Chronic atrial fibrillation, unspecified; D62 Acute posthemorrhagic anemia; N39.0 Urinary tract infection, site not specified; N17.9 Acute kidney failure, unspecified; I11.0 Hypertensive heart disease with heart failure; Z79.01 Long term (current) use of anticoagulants; B02.9 Zoster without complications; J44.9 Chronic obstructive pulmonary disease, unspecified; K29.70 Gastritis, unspecified, without bleeding; K20.90 Esophagitis, unspecified without bleeding; K46.9 Unspecified abdominal hernia without obstruction or gangrene; F03.90 Unspecified dementia, unspecified severity, without behavioral disturbance, psychotic disturbance, mood disturbance, and anxiety; N81.10 Cystocele, unspecified; N81.6 Rectocele; N95.2 Postmenopausal atrophic vaginitis; Z20.822 Contact with and (suspected) exposure to COVID-19; N39.46 Mixed incontinence; I27.20 Pulmonary hypertension, unspecified; I25.10 Atherosclerotic heart disease of native coronary artery without angina pectoris; E87.6 Hypokalemia; D50.9 Iron deficiency anemia, unspecified
CPT/HCPCS: 36415; 43239; 45378; 45380; 45385; 71045; 71250; 74177; 74420; 78278; 80048; 80053; 81001; 82550; 82553; 82607; 82746; 82948; 83540; 83735; 83880; 84100; 84466; 84484; 85014; 85018; 85025; 85610; 85730; 86850; 86900; 86920; 87086; 88305; 88312; 93005; 97139; 99251; 99284; A9512; C1758; C1769; C2617; J1644; J1756; J1940; J1956; J2001; J2270; J2370; J3480; J7050; P9016; Q9967; U0002

== ENCOUNTER 2021-02-11 06:04 | Inpatient (IN) | payer MEDICARE ==
[2021-02-09 14:09] LABS: BASOPHILS # (AUTO) 0.1 (0.0-0.1); BASOPHILS % 1.9 % (0.0-1.0); EOSINOPHILS # (AUTO) 0.1 (0.0-0.4); EOSINOPHILS % 3.4 % (0.0-6.0); HEMATOCRIT 39.6 % (34.2-44.1); HEMOGLOBIN 11.9 g/dL (12.0-16.0); LYMPHOCYTES # (AUTO) 0.9 (1.0-3.2); LYMPHOCYTES % 21.7 % (18.0-39.1); MEAN CORPUSCULAR HEMOGLOBIN 28.3 pg (28-32); MEAN CORPUSCULAR HGB CONC 30.1 g/dL (31-35); MEAN CORPUSCULAR VOLUME 94.3 fL (81-99); MONOCYTES # (AUTO) 0.5 (0.2-0.8); MONOCYTES % 12.2 % (4.4-11.3); NEUTROPHILS # (AUTO) 2.5 (2.1-6.9); NEUTROPHILS % 60.6 % (38.7-80.0); PLATELET COUNT 241 x10e3/uL (140-360)
[2021-02-09 14:26] LABS: ALBUMIN 3.9 g/dL (3.5-5.0); ALBUMIN/GLOBULIN RATIO 1.1 (0.8-2.0); ANION GAP 14.5 mmol/L (8-16); CALCIUM 9.6 mg/dL (8.4-10.2); CREATININE, SERUM 1.11 mg/dL (0.57-1.11); POTASSIUM 3.5 mmol/L (3.5-5.1)
[~2021-02-11] VITALS: Ht 165.1 cm; Wt 75.7 kg
[~2021-02-11 06:04] MED LIST changes: +FERROUS SULFAT325 MG PO; +LYRICA75 MG PO; +PANTOPRAZOLE SO40 MG PO; +ULTRAM 50MG50 MG PO; +VALACYCLOVIR500 MG PO
[2021-02-11] MEDS ORDERED: LEVOFLOXACIN 500MG/D5W 100ML 100 ML IV ONE (09:14)
[2021-02-11] MEDS ORDERED: ACETAMINOPHEN 1000 MG/100 ML 100 ML IV ONE (09:59)
[2021-02-11] MEDS ORDERED: BUPIVACAINE 0.25% 30ML SDV ONE (10:20)
[2021-02-11] MEDS ORDERED: ONDANSETRON HCL INJ 2MG/ML 2ML 2 MG/ML VIAL IV PRN (10:30)
[2021-02-11] MEDS ORDERED: SODIUM CHLORIDE 0.9% 250ML IRRIG IR SCH (10:30)
[2021-02-11] MEDS ORDERED: HYDROMORPHONE 1MG/1ML INJ IV PRN (10:30)
[2021-02-11] MEDS ORDERED: SUGAMMADEX SODIUM 200 MG/2 ML VIAL IV ONE (10:30)
[2021-02-11] MEDS ORDERED: ACETAMINOPHEN 1000 MG/100 ML IV PRN (10:30)
[2021-02-11] MEDS: PANTOPRAZOLE 40 MG 10ML VIAL IV SCH (13:22)
[2021-02-11] MEDS: SODIUM CHLORIDE 0.9% 250ML IRRIG IR SCH ×3 (13:22→20:00)
[2021-02-11] MEDS: SODIUM CHLORIDE 0.9% 1000ML 1,000 ML IV SCH ×2 (13:22→20:30)
[2021-02-11 13:41] VITALS: BP 134/81
[2021-02-11] MEDS ORDERED: FENTANYL CITRATE/PF 100MCG/2 ML INJ ONE (13:44)
[2021-02-11 13:49] VITALS: BP 134/81
[2021-02-11 13:51] VITALS: BP 134/81
[2021-02-11] MEDS: DIGOXIN 0.125 MG TAB PO SCH (14:26)
[2021-02-11] MEDS: METOPROLOL TARTRATE 50 MG TAB PO SCH ×2 (14:26→22:59)
[2021-02-11 15:07] VITALS: BP 120/77
[2021-02-11] MEDS ORDERED: EPHEDRINE SULFATE INJ 50 MG/ML VIAL ONE (16:29)
[2021-02-11] MEDS ORDERED: ATROPINE SULFATE 1 MG/ML VIAL ONE (16:29)
[2021-02-11] MEDS ORDERED: NEOSTIGMINE 1 MG/ML 10ML VIAL ONE (16:29)
[2021-02-11] MEDS ORDERED: ONDANSETRON HCL INJ 2MG/ML 2ML 2 MG/ML VIAL ONE (16:29)
[2021-02-11] MEDS ORDERED: ROCURONIUM BROMIDE 10 MG/ML 5ML VIAL IV ONE (16:29)
[2021-02-11] MEDS ORDERED: PROPOFOL IV EMULSION 10 MG/ML 20 ML VIAL ONE (16:29)
[2021-02-11] MEDS ORDERED: LIDOCAINE HCL 2% LOCAL INJ 5 ML SDV VIAL INJ ONE (16:29)
[2021-02-11] MEDS ORDERED: SEVOFLURANE INHAL SOLN 250 ML PEN BTL ONE (16:29)
[2021-02-11] MEDS ORDERED: DEXAMETHASONE SOD PHOS INJ 4 MG/ML VIAL ONE (16:29)
[2021-02-11 20:00] VITALS: BP 126/75
[2021-02-12] VITALS (8 sets, daily range): BP systolic 128–157; BP diastolic 70–95
[2021-02-12] MEDS: SODIUM CHLORIDE 0.9% 250ML IRRIG IR SCH ×2 (00:08→03:46)
[2021-02-12] MEDS: SODIUM CHLORIDE 0.9% 1000ML 1,000 ML IV SCH ×2 (06:30→16:30)
[2021-02-12] MEDS: METOPROLOL TARTRATE 50 MG TAB PO SCH ×3 (08:27→22:10)
[2021-02-12] MEDS ORDERED: LEVOFLOXACIN 500MG/D5W 100ML 100 ML IV ONE (09:00)
[2021-02-12 09:40] LABS: BASOPHILS % 0.1 % (0.0-1.0); HEMATOCRIT 34.1 % (34.2-44.1); HEMOGLOBIN 10.5 g/dL (12.0-16.0); LYMPHOCYTES # (AUTO) 0.6 (1.0-3.2); LYMPHOCYTES % 6.5 % (18.0-39.1); MEAN CORPUSCULAR HEMOGLOBIN 28.6 pg (28-32); MEAN CORPUSCULAR HGB CONC 30.8 g/dL (31-35); MEAN CORPUSCULAR VOLUME 92.9 fL (81-99); MONOCYTES # (AUTO) 0.6 (0.2-0.8); MONOCYTES % 6.8 % (4.4-11.3); NEUTROPHILS # (AUTO) 7.3 (2.1-6.9); NEUTROPHILS % 86.1 % (38.7-80.0); PLATELET COUNT 215 x10e3/uL (140-360); RED BLOOD COUNT 3.67 x10e6/uL (3.6-5.1); RED CELL DISTRIBUTION WIDTH 20.9 % (11.7-14.4)
[2021-02-12 09:59] LABS: ANION GAP 15.5 mmol/L (8-16); CALCIUM 8.3 mg/dL (8.4-10.2); CREATININE, SERUM 1.07 mg/dL (0.57-1.11); POTASSIUM 3.5 mmol/L (3.5-5.1)
[2021-02-12] MEDS: PANTOPRAZOLE 40 MG 10ML VIAL IV SCH (13:57)
[2021-02-13] VITALS (8 sets, daily range): BP systolic 131–175; BP diastolic 64–90
[2021-02-13] MEDS: SODIUM CHLORIDE 0.9% 1000ML 1,000 ML IV SCH ×3 (03:07→20:34)
[2021-02-13 05:59] LABS: BASOPHILS % 0.5 % (0.0-1.0); EOSINOPHILS % 0.4 % (0.0-6.0); HEMATOCRIT 35.7 % (34.2-44.1); HEMOGLOBIN 10.8 g/dL (12.0-16.0); LYMPHOCYTES # (AUTO) 0.6 (1.0-3.2); LYMPHOCYTES % 6.8 % (18.0-39.1); MEAN CORPUSCULAR HEMOGLOBIN 28.5 pg (28-32); MEAN CORPUSCULAR HGB CONC 30.3 g/dL (31-35); MEAN CORPUSCULAR VOLUME 94.2 fL (81-99); MONOCYTES # (AUTO) 0.6 (0.2-0.8); MONOCYTES % 6.7 % (4.4-11.3); NEUTROPHILS # (AUTO) 7.2 (2.1-6.9); NEUTROPHILS % 85.1 % (38.7-80.0); PLATELET COUNT 220 x10e3/uL (140-360); RED BLOOD COUNT 3.79 x10e6/uL (3.6-5.1); RED CELL DISTRIBUTION WIDTH 20.8 % (11.7-14.4)
[2021-02-13 06:25] LABS: ANION GAP 13.1 mmol/L (8-16); BLOOD UREA NITROGEN 14 mg/dL (7-26); BUN/CREATININE RATIO 17 (6-25); CALCIUM 8.1 mg/dL (8.4-10.2); CARBON DIOXIDE 27 mmol/L (22-29); CHLORIDE 106 mmol/L (98-107); CREATININE, SERUM 0.84 mg/dL (0.57-1.11); EST GLOMERULAR FILTRATION RATE > 60 ML/MIN (60-); GLUCOSE 84 mg/dL (74-118); POTASSIUM 3.1 mmol/L (3.5-5.1); SODIUM 143 mmol/L (136-145)
[2021-02-13] MEDS: METOPROLOL TARTRATE 50 MG TAB PO SCH ×3 (09:00→20:34)
[2021-02-13] MEDS ORDERED: BISACODYL 10 MG SUPP PR ONE (13:45)
[2021-02-13] MEDS: PANTOPRAZOLE 40 MG 10ML VIAL IV SCH (14:30)
[2021-02-13] MEDS: DIGOXIN 0.125 MG TAB PO SCH (14:30)
[2021-02-13] MEDS: BISACODYL 10 MG SUPP PR SCH (20:33)
[2021-02-14] VITALS (8 sets, daily range): BP systolic 123–173; BP diastolic 65–105
[2021-02-14] MEDS: BISACODYL 10 MG SUPP PR SCH (08:00)
[2021-02-14] MEDS: SODIUM CHLORIDE 0.9% 1000ML 1,000 ML IV SCH ×2 (08:33→21:53)
[2021-02-14 08:44] LABS: BASOPHILS # (AUTO) 0.1 (0.0-0.1); BASOPHILS % 0.7 % (0.0-1.0); EOSINOPHILS # (AUTO) 0.1 (0.0-0.4); EOSINOPHILS % 0.6 % (0.0-6.0); HEMOGLOBIN 11.6 g/dL (12.0-16.0); LYMPHOCYTES # (AUTO) 0.7 (1.0-3.2); LYMPHOCYTES % 8.2 % (18.0-39.1); MEAN CORPUSCULAR HEMOGLOBIN 28.7 pg (28-32); MEAN CORPUSCULAR HGB CONC 29.7 g/dL (31-35); MEAN CORPUSCULAR VOLUME 96.5 fL (81-99); MONOCYTES # (AUTO) 0.4 (0.2-0.8); MONOCYTES % 4.6 % (4.4-11.3); NEUTROPHILS # (AUTO) 6.9 (2.1-6.9); NEUTROPHILS % 84.9 % (38.7-80.0); PLATELET COUNT 184 x10e3/uL (140-360); RED BLOOD COUNT 4.04 x10e6/uL (3.6-5.1); RED CELL DISTRIBUTION WIDTH 20.1 % (11.7-14.4)
[2021-02-14 08:59] LABS: ANION GAP 16.1 mmol/L (8-16); BLOOD UREA NITROGEN 13 mg/dL (7-26); BUN/CREATININE RATIO 17 (6-25); CALCIUM 8.3 mg/dL (8.4-10.2); CARBON DIOXIDE 22 mmol/L (22-29); CHLORIDE 109 mmol/L (98-107); CREATININE, SERUM 0.75 mg/dL (0.57-1.11); EST GLOMERULAR FILTRATION RATE > 60 ML/MIN (60-); GLUCOSE 76 mg/dL (74-118); POTASSIUM 3.1 mmol/L (3.5-5.1); SODIUM 144 mmol/L (136-145)
[2021-02-14] MEDS: METOPROLOL TARTRATE 50 MG TAB PO SCH ×3 (09:20→20:17)
[2021-02-14] MEDS: ISOSORBIDE MONONITRATE 30 MG TAB CR PO SCH (09:20)
[2021-02-14 14:36] LABS: BASOPHILS % 0.5 % (0.0-1.0); EOSINOPHILS % 0.5 % (0.0-6.0); HEMATOCRIT 31.9 % (34.2-44.1); HEMOGLOBIN 9.8 g/dL (12.0-16.0); LYMPHOCYTES # (AUTO) 0.6 (1.0-3.2); LYMPHOCYTES % 8.3 % (18.0-39.1); MEAN CORPUSCULAR HEMOGLOBIN 28.7 pg (28-32); MEAN CORPUSCULAR HGB CONC 30.7 g/dL (31-35); MEAN CORPUSCULAR VOLUME 93.5 fL (81-99); MONOCYTES # (AUTO) 0.3 (0.2-0.8); MONOCYTES % 4.5 % (4.4-11.3); NEUTROPHILS # (AUTO) 6.3 (2.1-6.9); NEUTROPHILS % 85.1 % (38.7-80.0); PLATELET COUNT 191 x10e3/uL (140-360); RED BLOOD COUNT 3.41 x10e6/uL (3.6-5.1); RED CELL DISTRIBUTION WIDTH 19.9 % (11.7-14.4)
[2021-02-14] MEDS ORDERED: ONDANSETRON HCL 4 MG ORAL DISINTEGRATING TAB SL PRN (14:45)
[2021-02-14] MEDS: PANTOPRAZOLE 40 MG 10ML VIAL IV SCH (15:00)
[2021-02-14 19:20] LABS: BASOPHILS # (AUTO) 0.1 (0.0-0.1); BASOPHILS % 0.7 % (0.0-1.0); EOSINOPHILS # (AUTO) 0.1 (0.0-0.4); HEMATOCRIT 34.2 % (34.2-44.1); HEMOGLOBIN 10.4 g/dL (12.0-16.0); LYMPHOCYTES # (AUTO) 0.7 (1.0-3.2); LYMPHOCYTES % 9.3 % (18.0-39.1); MEAN CORPUSCULAR HEMOGLOBIN 28.3 pg (28-32); MEAN CORPUSCULAR HGB CONC 30.4 g/dL (31-35); MEAN CORPUSCULAR VOLUME 93.2 fL (81-99); MONOCYTES # (AUTO) 0.4 (0.2-0.8); MONOCYTES % 5.4 % (4.4-11.3); NEUTROPHILS # (AUTO) 6.3 (2.1-6.9); NEUTROPHILS % 82.7 % (38.7-80.0); PLATELET COUNT 198 x10e3/uL (140-360); RED BLOOD COUNT 3.67 x10e6/uL (3.6-5.1); RED CELL DISTRIBUTION WIDTH 19.8 % (11.7-14.4)
[2021-02-15] VITALS (7 sets, daily range): BP systolic 133–167; BP diastolic 62–98
[2021-02-15 06:59] LABS: BASOPHILS # (AUTO) 0.1 (0.0-0.1); EOSINOPHILS # (AUTO) 0.1 (0.0-0.4); EOSINOPHILS % 2.3 % (0.0-6.0); HEMATOCRIT 33.1 % (34.2-44.1); LYMPHOCYTES # (AUTO) 0.7 (1.0-3.2); LYMPHOCYTES % 11.1 % (18.0-39.1); MEAN CORPUSCULAR HEMOGLOBIN 28.6 pg (28-32); MEAN CORPUSCULAR HGB CONC 30.2 g/dL (31-35); MEAN CORPUSCULAR VOLUME 94.6 fL (81-99); MONOCYTES # (AUTO) 0.3 (0.2-0.8); MONOCYTES % 5.5 % (4.4-11.3); NEUTROPHILS # (AUTO) 4.9 (2.1-6.9); NEUTROPHILS % 78.8 % (38.7-80.0); PLATELET COUNT 181 x10e3/uL (140-360); RED CELL DISTRIBUTION WIDTH 19.6 % (11.7-14.4)
[2021-02-15 07:44] LABS: ANION GAP 11.9 mmol/L (8-16); BLOOD UREA NITROGEN 14 mg/dL (7-26); BUN/CREATININE RATIO 20 (6-25); CALCIUM 7.8 mg/dL (8.4-10.2); CARBON DIOXIDE 22 mmol/L (22-29); CHLORIDE 112 mmol/L (98-107); CREATININE, SERUM 0.71 mg/dL (0.57-1.11); EST GLOMERULAR FILTRATION RATE > 60 ML/MIN (60-); GLUCOSE 87 mg/dL (74-118); SODIUM 143 mmol/L (136-145)
[2021-02-15 08:03] LABS: POTASSIUM 2.9 mmol/L (3.5-5.1)
[2021-02-15] MEDS ORDERED: POTASSIUM CHLORIDE 20 MEQ in SODIUM CHLORIDE 0.9% 1000ML 1,000 ML IV SCH (08:14)
[2021-02-15] MEDS ORDERED: POTASSIUM CHLORIDE 20MEQ/15ML UDC PO ONE (08:30)
[2021-02-15] MEDS: KCL 20MEQ/.9 SOD CHL 1,000 ML IV SCH (08:45)
[2021-02-15] MEDS: ISOSORBIDE MONONITRATE 30 MG TAB CR PO SCH (09:00)
[2021-02-15] MEDS: METOPROLOL TARTRATE 50 MG TAB PO SCH ×3 (09:00→21:22)
[2021-02-15] MEDS ORDERED: KCL 20 MEQ PACKET/ ORAL SOLN PO ONE (10:15)
[2021-02-15] MEDS: DIGOXIN 0.125 MG TAB PO SCH (14:00)
[2021-02-15] MEDS: PANTOPRAZOLE 40 MG 10ML VIAL IV SCH (15:00)
[2021-02-16] VITALS (9 sets, daily range): BP systolic 126–172; BP diastolic 64–103
[2021-02-16 05:49] LABS: BASOPHILS # (AUTO) 0.1 (0.0-0.1); BASOPHILS % 0.7 % (0.0-1.0); EOSINOPHILS # (AUTO) 0.2 (0.0-0.4); EOSINOPHILS % 2.9 % (0.0-6.0); HEMATOCRIT 33.1 % (34.2-44.1); HEMOGLOBIN 10.5 g/dL (12.0-16.0); LYMPHOCYTES # (AUTO) 0.9 (1.0-3.2); LYMPHOCYTES % 12.6 % (18.0-39.1); MEAN CORPUSCULAR HEMOGLOBIN 28.6 pg (28-32); MEAN CORPUSCULAR HGB CONC 31.7 g/dL (31-35); MEAN CORPUSCULAR VOLUME 90.2 fL (81-99); MONOCYTES # (AUTO) 0.4 (0.2-0.8); MONOCYTES % 6.1 % (4.4-11.3); NEUTROPHILS # (AUTO) 5.5 (2.1-6.9); NEUTROPHILS % 76.6 % (38.7-80.0); PLATELET COUNT 214 x10e3/uL (140-360); RED BLOOD COUNT 3.67 x10e6/uL (3.6-5.1); RED CELL DISTRIBUTION WIDTH 19.3 % (11.7-14.4)
[2021-02-16 06:12] LABS: ANION GAP 11.5 mmol/L (8-16); BLOOD UREA NITROGEN 12 mg/dL (7-26); BUN/CREATININE RATIO 16 (6-25); CALCIUM 8.4 mg/dL (8.4-10.2); CARBON DIOXIDE 23 mmol/L (22-29); CHLORIDE 112 mmol/L (98-107); CREATININE, SERUM 0.75 mg/dL (0.57-1.11); EST GLOMERULAR FILTRATION RATE > 60 ML/MIN (60-); GLUCOSE 97 mg/dL (74-118); POTASSIUM 3.5 mmol/L (3.5-5.1); SODIUM 143 mmol/L (136-145)
[2021-02-16] MEDS: KCL 20MEQ/.9 SOD CHL 1,000 ML IV SCH (07:58)
[2021-02-16] MEDS: FUROSEMIDE 20 MG TAB PO SCH (08:01)
[2021-02-16] MEDS: METOPROLOL TARTRATE 50 MG TAB PO SCH ×3 (08:03→20:05)
[2021-02-16] MEDS: ISOSORBIDE MONONITRATE 30 MG TAB CR PO SCH (08:03)
[2021-02-16] MEDS: PANTOPRAZOLE 40 MG 10ML VIAL IV SCH (14:00)
[2021-02-17 00:16] VITALS: BP 153/93
[2021-02-17 04:00] VITALS: BP 154/94
[2021-02-17 07:51] VITALS: BP 154/94
[2021-02-17 08:00] VITALS: BP 161/82
[2021-02-17 08:07] VITALS: BP 161/82
[2021-02-17] MEDS: ISOSORBIDE MONONITRATE 30 MG TAB CR PO SCH (08:15)
[2021-02-17] MEDS: FUROSEMIDE 20 MG TAB PO SCH (08:15)
[2021-02-17] MEDS: METOPROLOL TARTRATE 50 MG TAB PO SCH (08:15)
[2021-02-17] MEDS: KCL 20MEQ/.9 SOD CHL 1,000 ML IV SCH (08:45)
[2021-02-17] MEDS ORDERED: PANTOPRAZOLE SOD 40 MG TABEC PO SCH (14:00)
== END 2021-02-17 10:12 | disposition home or self-care (01) | DRG 330 ==
LOC: OR 06:04 → PACU V 10:34 → MED/SURG 11:52
PROVIDERS: ADMIT Surgery; ATTEND Surgery
PROC: 0DTF0ZZ Resection of Right Large Intestine, Open Approach (ICD-10-PCS; principal; 2021-02-11 07:30)
DX: C18.9 Malignant neoplasm of colon, unspecified (principal); N13.6 Pyonephrosis; I10 Essential (primary) hypertension; I25.10 Atherosclerotic heart disease of native coronary artery without angina pectoris; J44.9 Chronic obstructive pulmonary disease, unspecified; I48.0 Paroxysmal atrial fibrillation; I50.9 Heart failure, unspecified; N95.2 Postmenopausal atrophic vaginitis; N81.10 Cystocele, unspecified; Z20.822 Contact with and (suspected) exposure to COVID-19
CPT/HCPCS: 36415; 71046; 74018; 80048; 80053; 85025; 86850; 86900; 88307; 88309; J0461; J1100; J1956; J2001; J2405; J2710; J3010; J7030; U0002

== ENCOUNTER → 2021-05-22 | Day surgery (SDC) | payer MEDICARE ==
[2021-05-21 10:04] LABS: BASOPHILS # (AUTO) 0.1 (0.0-0.1); BASOPHILS % 1.4 % (0.0-1.0); EOSINOPHILS # (AUTO) 0.2 (0.0-0.4); EOSINOPHILS % 3.6 % (0.0-6.0); HEMATOCRIT 38.8 % (34.2-44.1); HEMOGLOBIN 11.6 g/dL (12.0-16.0); LYMPHOCYTES % 19.1 % (18.0-39.1); MEAN CORPUSCULAR HEMOGLOBIN 27.4 pg (28-32); MEAN CORPUSCULAR HGB CONC 29.9 g/dL (31-35); MEAN CORPUSCULAR VOLUME 91.7 fL (81-99); MONOCYTES # (AUTO) 0.5 (0.2-0.8); MONOCYTES % 9.2 % (4.4-11.3); NEUTROPHILS # (AUTO) 3.3 (2.1-6.9); NEUTROPHILS % 66.5 % (38.7-80.0); PLATELET COUNT 224 x10e3/uL (140-360); RED BLOOD COUNT 4.23 x10e6/uL (3.6-5.1); RED CELL DISTRIBUTION WIDTH 17.6 % (11.7-14.4)
[2021-05-21 10:24] LABS: ALBUMIN 3.5 g/dL (3.5-5.0); ALBUMIN/GLOBULIN RATIO 0.9 (0.8-2.0); ANION GAP 14.3 mmol/L (8-16); CALCIUM 8.8 mg/dL (8.4-10.2); CREATININE, SERUM 1.22 mg/dL (0.57-1.11); POTASSIUM 3.3 mmol/L (3.5-5.1)
[~2021-05-22] MED LIST changes: +DEXAMETHASONE SOD PHOS INJ 4 MG/ML VIAL ONE; +FENTANYL CITRATE/PF 100MCG/2 ML INJ ONE; +GENTAMICIN 80MG/NS 100 ML 200 ML IV ONE; +LIDOCAINE HCL 2% LOCAL INJ 5 ML SDV VIAL INJ ONE; +LYRICA50 MG PO; +ONDANSETRON HCL INJ 2MG/ML 2ML 2 MG/ML VIAL ONE; +POVIDONE IODINE 0.05% 0.05 % ML PO ONE; +PROPOFOL IV EMULSION 10 MG/ML 20 ML VIAL ONE; +SEVOFLURANE INHAL SOLN 250 ML PEN BTL ONE
[2021-05-22 13:25] VITALS: BP 160/54
== END | disposition home or self-care (01) ==
LOC: OR 10:15
PROVIDERS: ATTEND Urology
DX: N13.2 Hydronephrosis with renal and ureteral calculous obstruction (principal); N95.2 Postmenopausal atrophic vaginitis; Z84.1 Family history of disorders of kidney and ureter; D39.8 Neoplasm of uncertain behavior of other specified female genital organs; Z01.810 Encounter for preprocedural cardiovascular examination; Z01.812 Encounter for preprocedural laboratory examination; Z01.818 Encounter for other preprocedural examination; Z88.1 Allergy status to other antibiotic agents; Z88.0 Allergy status to penicillin; J44.9 Chronic obstructive pulmonary disease, unspecified; I10 Essential (primary) hypertension
CPT/HCPCS: 36415; 50590; 74018; 80053; 84550; 85025; 93005; J1100; J1580; J2001; J2405; J2704; J3010

== ENCOUNTER → 2021-06-10 | Outpatient (CLI) | payer MEDICARE ==
[~2021-06-10] MED LIST changes: -DEXAMETHASONE SOD PHOS INJ 4 MG/ML VIAL ONE; +DOXYCYCLINE HY100 MG PO; -FENTANYL CITRATE/PF 100MCG/2 ML INJ ONE; -GENTAMICIN 80MG/NS 100 ML 200 ML IV ONE; -LIDOCAINE HCL 2% LOCAL INJ 5 ML SDV VIAL INJ ONE; +MUPIROCIN22 GM TOP; -ONDANSETRON HCL INJ 2MG/ML 2ML 2 MG/ML VIAL ONE; -POVIDONE IODINE 0.05% 0.05 % ML PO ONE; -PROPOFOL IV EMULSION 10 MG/ML 20 ML VIAL ONE; -SEVOFLURANE INHAL SOLN 250 ML PEN BTL ONE
== END ==
LOC: MRI 14:28
PROVIDERS: ATTEND Pediatrics
DX: R41.89 Other symptoms and signs involving cognitive functions and awareness (principal); F03.90 Unspecified dementia, unspecified severity, without behavioral disturbance, psychotic disturbance, mood disturbance, and anxiety; R41.3 Other amnesia
CPT/HCPCS: 70551

== ENCOUNTER 2021-06-13 09:56 | Emergency (ER) | payer MEDICARE ==
[~2021-06-13] VITALS: Ht 167.6 cm; Wt 59.0 kg
[~2021-06-13 09:56] MED LIST changes: -DOXYCYCLINE HY100 MG PO; -MUPIROCIN22 GM TOP
[2021-06-13] MEDS ORDERED: TETANUS/DIPHTHERIA TOX ADULT 0.5 ML SYR IM STA (10:38)
[2021-06-13] MEDS ORDERED: MUPIROCIN 2% OINT 22 GM TUBE TOP ONE (10:45)
[2021-06-13] MEDS ORDERED: DOXYCYCLINE HY100 MG PO (10:46)
[2021-06-13] MEDS ORDERED: MUPIROCIN22 GM TOP (10:46)
[2021-06-13] MEDS ORDERED: TETANUS/DIPHTHERIA TOX ADULT 0.5 ML SYR ONE (10:58)
[2021-06-13] MEDS ORDERED: BACITRACIN ZINC 0.9GM TP ONE (10:58)
== END 2021-06-13 11:19 | disposition home or self-care (01) ==
LOC: FSED 10:20
DX: S00.03XA Contusion of scalp, initial encounter (principal); W18.30XA Fall on same level, unspecified, initial encounter; Y93.01 Activity, walking, marching and hiking; F03.90 Unspecified dementia, unspecified severity, without behavioral disturbance, psychotic disturbance, mood disturbance, and anxiety; I10 Essential (primary) hypertension; I50.9 Heart failure, unspecified; E78.5 Hyperlipidemia, unspecified; J44.9 Chronic obstructive pulmonary disease, unspecified; I48.91 Unspecified atrial fibrillation
CPT/HCPCS: 70450; 90471; 90714; 96372; 99283

== ENCOUNTER → 2021-07-03 | Day surgery (SDC) | payer MEDICARE ==
[2021-07-01 14:38] LABS: BASOPHILS # (AUTO) 0.1 (0.0-0.1); BASOPHILS % 1.3 % (0.0-1.0); EOSINOPHILS # (AUTO) 0.1 (0.0-0.4); EOSINOPHILS % 3.3 % (0.0-6.0); HEMATOCRIT 39.1 % (34.2-44.1); HEMOGLOBIN 11.8 g/dL (12.0-16.0); LYMPHOCYTES # (AUTO) 1.5 (1.0-3.2); LYMPHOCYTES % 37.2 % (18.0-39.1); MEAN CORPUSCULAR HEMOGLOBIN 27.8 pg (28-32); MEAN CORPUSCULAR HGB CONC 30.2 g/dL (31-35); MONOCYTES # (AUTO) 0.4 (0.2-0.8); MONOCYTES % 9.6 % (4.4-11.3); NEUTROPHILS # (AUTO) 1.9 (2.1-6.9); NEUTROPHILS % 48.1 % (38.7-80.0); PLATELET COUNT 173 x10e3/uL (140-360); RED BLOOD COUNT 4.25 x10e6/uL (3.6-5.1)
[2021-07-01 14:54] LABS: ANION GAP 17.8 mmol/L (8-16); CALCIUM 9.3 mg/dL (8.4-10.2); CREATININE, SERUM 1.09 mg/dL (0.57-1.11); POTASSIUM 3.8 mmol/L (3.5-5.1)
[~2021-07-03] MED LIST changes: +BACTRIM 400-801 EACH PO; +BELLADONNA/OPIUM 30 MG SUPP RC ONE; +DOXYCYCLINE HY100 MG PO; +GENTAMICIN 80MG/NS 100 ML 100 ML IV ONE; +IOPAMIDOL 300MG/ML 50ML INFUS..BTL IV ONE; +LEVOFLOXACIN 500MG/D5W 100ML 0 ML IV ONE; +MUPIROCIN22 GM TOP
[2021-07-03 15:00] VITALS: BP 158/82
== END | disposition home or self-care (01) ==
LOC: OR 09:39
PROVIDERS: ATTEND Urology
DX: N13.2 Hydronephrosis with renal and ureteral calculous obstruction (principal); N39.0 Urinary tract infection, site not specified; N39.46 Mixed incontinence; R35.1 Nocturia; N95.2 Postmenopausal atrophic vaginitis; Z84.1 Family history of disorders of kidney and ureter; D39.8 Neoplasm of uncertain behavior of other specified female genital organs; R39.14 Feeling of incomplete bladder emptying; N13.5 Crossing vessel and stricture of ureter without hydronephrosis; N39.3 Stress incontinence (female) (male); R31.29 Other microscopic hematuria; Z88.1 Allergy status to other antibiotic agents; Z88.0 Allergy status to penicillin; J44.9 Chronic obstructive pulmonary disease, unspecified; I48.91 Unspecified atrial fibrillation; Z01.812 Encounter for preprocedural laboratory examination; Z01.818 Encounter for other preprocedural examination; Z20.822 Contact with and (suspected) exposure to COVID-19
CPT/HCPCS: 36415; 52356; 71046; 74018; 74420; 80048; 84550; 85025; 87086; 88300; C1758; C1769; C2617; J1580; Q9967; U0002; J1956

== ENCOUNTER → 2021-08-12 | Day surgery (SDC) | payer MEDICARE ==
[2021-08-11 09:31] LABS: BASOPHILS % 0.9 % (0.0-1.0); EOSINOPHILS # (AUTO) 0.1 (0.0-0.4); EOSINOPHILS % 3.6 % (0.0-6.0); HEMATOCRIT 42.1 % (34.2-44.1); HEMOGLOBIN 12.9 g/dL (12.0-16.0); LYMPHOCYTES # (AUTO) 0.9 (1.0-3.2); MEAN CORPUSCULAR HEMOGLOBIN 29.3 pg (28-32); MEAN CORPUSCULAR HGB CONC 30.6 g/dL (31-35); MEAN CORPUSCULAR VOLUME 95.7 fL (81-99); MONOCYTES # (AUTO) 0.3 (0.2-0.8); MONOCYTES % 9.9 % (4.4-11.3); NEUTROPHILS % 59.3 % (38.7-80.0); PLATELET COUNT 179 x10e3/uL (140-360); RED CELL DISTRIBUTION WIDTH 16.4 % (11.7-14.4)
[2021-08-11 10:03] LABS: ANION GAP 12.8 mmol/L (8-16); CALCIUM 9.1 mg/dL (8.4-10.2); CREATININE, SERUM 1.21 mg/dL (0.57-1.11); POTASSIUM 3.8 mmol/L (3.5-5.1)
[~2021-08-12] MED LIST changes: +DONEPEZIL HCL5 MG PO; -GENTAMICIN 80MG/NS 100 ML 100 ML IV ONE; +GENTAMICIN 80MG/NS 100 ML 200 ML IV ONE; +LABETALOL HCL 20 ML ONE; -LEVOFLOXACIN 500MG/D5W 100ML 0 ML IV ONE
[2021-08-12 13:15] VITALS: BP 170/92
== END | disposition home or self-care (01) ==
LOC: OR 08:31
PROVIDERS: ATTEND Urology
DX: N20.0 Calculus of kidney (principal); Z46.6 Encounter for fitting and adjustment of urinary device; N13.30 Unspecified hydronephrosis; N28.89 Other specified disorders of kidney and ureter; N39.0 Urinary tract infection, site not specified; N81.10 Cystocele, unspecified; N81.6 Rectocele; N95.2 Postmenopausal atrophic vaginitis; D18.09 Hemangioma of other sites; I48.91 Unspecified atrial fibrillation; I45.10 Unspecified right bundle-branch block; D64.9 Anemia, unspecified; J44.9 Chronic obstructive pulmonary disease, unspecified; I10 Essential (primary) hypertension; E78.5 Hyperlipidemia, unspecified; K21.9 Gastro-esophageal reflux disease without esophagitis; F03.90 Unspecified dementia, unspecified severity, without behavioral disturbance, psychotic disturbance, mood disturbance, and anxiety; Z88.1 Allergy status to other antibiotic agents; Z88.0 Allergy status to penicillin; Z01.812 Encounter for preprocedural laboratory examination; Z01.818 Encounter for other preprocedural examination; Z20.822 Contact with and (suspected) exposure to COVID-19; Z85.3 Personal history of malignant neoplasm of breast; Z85.038 Personal history of other malignant neoplasm of large intestine
CPT/HCPCS: 36415; 52352; 74018; 74420; 80048; 84550; 85025; 87086; 88300; C1769; J1580; J3490; Q9967; U0002

== ENCOUNTER 2021-10-06 18:24 | Inpatient (IN) | payer MEDICARE ==
[~2021-10-06] VITALS: Ht 162.6 cm; Wt 80.8 kg
[~2021-10-06 18:24] MED LIST changes: -BELLADONNA/OPIUM 30 MG SUPP RC ONE; -GENTAMICIN 80MG/NS 100 ML 200 ML IV ONE; -IOPAMIDOL 300MG/ML 50ML INFUS..BTL IV ONE; -LABETALOL HCL 20 ML ONE
[2021-10-06] MEDS ORDERED: CEFTRIAXONE 1 GM in SODIUM CHLORIDE 0.9% 50ML 50 ML IV ONE (18:30)
[2021-10-06] MEDS ORDERED: ACETAMINOPHEN 325 MG TAB PO NR (18:30)
[2021-10-06] MEDS ORDERED: ISOSORBIDE MONO30 MG PO (18:47)
[2021-10-06] MEDS ORDERED: TYLENOL325 MG PO (18:48)
[2021-10-06] MEDS ORDERED: DOXYCYCLINE HY100 MG PO (18:48)
[2021-10-06 18:55] LABS: BASOPHILS % 0.5 % (0.0-1.0); HEMATOCRIT 40.7 % (34.2-44.1); HEMOGLOBIN 12.5 g/dL (12.0-16.0); LYMPHOCYTES % 26.2 % (18.0-39.1); MEAN CORPUSCULAR HEMOGLOBIN 30.4 pg (28-32); MEAN CORPUSCULAR HGB CONC 30.7 g/dL (31-35); MONOCYTES % 6.8 % (4.4-11.3); NEUTROPHILS # (AUTO) 4.3 (2.1-6.9); PLATELET COUNT 146 x10e3/uL (140-360); RED BLOOD COUNT 4.11 x10e6/uL (3.6-5.1); RED CELL DISTRIBUTION WIDTH 15.2 % (11.7-14.4)
[2021-10-06 18:56] LABS: LYMPHOCYTES # (AUTO) 1.7 (1.0-3.2); MONOCYTES # (AUTO) 0.4 (0.2-0.8)
[2021-10-06 19:12] LABS: ALBUMIN 3.6 g/dL (3.5-5.0); ALBUMIN/GLOBULIN RATIO 0.9 (0.8-2.0); ANION GAP 18.2 mmol/L (8-16); CALCIUM 8.5 mg/dL (8.4-10.2); CREATININE, SERUM 1.24 mg/dL (0.57-1.11); POTASSIUM 3.2 mmol/L (3.5-5.1)
[2021-10-06 19:18] LABS: CREATINE KINASE MB 4.3 ng/mL (0-5.0)
[2021-10-06 19:19] LABS: B-TYPE NATRIURETIC PEPTIDE2 1243.7 pg/mL (0-100)
[2021-10-06] MEDS ORDERED: ASPIRIN 81 MG CHEW TAB PO ONE (19:45)
[2021-10-06 20:35] LABS: CLARITY,URINE CLEAR (CLEAR); COLOR,URINE YELLOW (YELLOW); KETONES,URINE NEGATIVE (NEGATIVE); LEUKOCYTE ESTERASE ,URINE NEGATIVE (NEGATIVE); NITRITE,URINE NEGATIVE (NEGATIVE); PROTEIN,URINE DIPSTICK 2+ (NEGATIVE); URINE UROBILINOGEN 0.2 mg/dL (0.2 - 1)
[2021-10-06 20:40] LABS: BACTERIA,URINE MODERATE /HPF; EPITHELIAL CELLS,URINE FEW /LPF
[2021-10-06] MEDS ORDERED: SODIUM CHLORIDE 0.9% 1000ML 1,000 ML IV ONE (22:00)
[2021-10-06 22:14] LABS: CREATINE KINASE MB 4.7 ng/mL (0-5.0)
[2021-10-06 22:15] VITALS: BP 129/72
[2021-10-06 23:56] VITALS: BP 129/72
[2021-10-07] VITALS (8 sets, daily range): BP systolic 129–181; BP diastolic 64–123
[2021-10-07 06:12] LABS: BASOPHILS % 0.4 % (0.0-1.0); HEMATOCRIT 39.2 % (34.2-44.1); HEMOGLOBIN 11.9 g/dL (12.0-16.0); LYMPHOCYTES # (AUTO) 0.9 (1.0-3.2); LYMPHOCYTES % 20.4 % (18.0-39.1); MEAN CORPUSCULAR HEMOGLOBIN 29.8 pg (28-32); MEAN CORPUSCULAR HGB CONC 30.4 g/dL (31-35); MONOCYTES # (AUTO) 0.4 (0.2-0.8); MONOCYTES % 7.7 % (4.4-11.3); NEUTROPHILS # (AUTO) 3.3 (2.1-6.9); NEUTROPHILS % 71.3 % (38.7-80.0); PLATELET COUNT 118 x10e3/uL (140-360); RED CELL DISTRIBUTION WIDTH 15.1 % (11.7-14.4)
[2021-10-07 06:48] LABS: ALBUMIN/GLOBULIN RATIO 0.8 (0.8-2.0); CALCIUM 8.4 mg/dL (8.4-10.2); CREATININE, SERUM 0.97 mg/dL (0.57-1.11)
[2021-10-07] MEDS: METOPROLOL TARTRATE INJ 1 MG/ML VIAL IV PRN ×2 (06:53→16:29)
[2021-10-07] MEDS: GUAIFENESIN/DEXTROMETHORPHAN LIQD 5 ML UDC NG PRN ×2 (06:55→20:50)
[2021-10-07 07:30] LABS: CREATINE KINASE MB 4.9 ng/mL (0-5.0)
[2021-10-07] MEDS: CEFTRIAXONE 1 GM in SODIUM CHLORIDE 0.9% 50ML 50 ML IV SCH (09:05)
[2021-10-07] MEDS ORDERED: POTASSIUM CHLORIDE 20 MEQ TAB CR PO ONE (14:30)
[2021-10-07 15:38] LABS: CREATINE KINASE MB 5.3 ng/mL (0-5.0)
[2021-10-07] MEDS: DIGOXIN 0.125 MG TAB PO SCH (15:51)
[2021-10-07] MEDS ORDERED: SODIUM CHLORIDE 0.9% 50ML 50 ML ONE (16:46)
[2021-10-07] MEDS ORDERED: IOPAMIDOL 370 MG/ML 200 ML INFUS..BTL INJ ONE (16:47)
[2021-10-07] MEDS: METOPROLOL TARTRATE 50 MG TAB PO SCH (18:02)
[2021-10-07] MEDS ORDERED: ZIPRASIDONE 20 MG VIAL IM PRN (18:45)
[2021-10-07] MEDS: DONEPEZIL HCL 5 MG TAB PO SCH (20:50)
[2021-10-07] MEDS: ACETAMINOPHEN 325 MG TAB PO PRN (20:50)
[2021-10-08] VITALS (8 sets, daily range): BP systolic 144–183; BP diastolic 98–171
[2021-10-08] MEDS: GUAIFENESIN/DEXTROMETHORPHAN LIQD 5 ML UDC NG PRN (02:50)
[2021-10-08] MEDS: METOPROLOL TARTRATE INJ 1 MG/ML VIAL IV PRN (04:45)
[2021-10-08 05:42] LABS: BASOPHILS % 0.3 % (0.0-1.0); HEMATOCRIT 39.4 % (34.2-44.1); HEMOGLOBIN 12.4 g/dL (12.0-16.0); LYMPHOCYTES # (AUTO) 0.6 (1.0-3.2); MEAN CORPUSCULAR HEMOGLOBIN 30.3 pg (28-32); MEAN CORPUSCULAR HGB CONC 31.5 g/dL (31-35); MEAN CORPUSCULAR VOLUME 96.3 fL (81-99); MONOCYTES # (AUTO) 0.3 (0.2-0.8); MONOCYTES % 5.7 % (4.4-11.3); NEUTROPHILS # (AUTO) 4.8 (2.1-6.9); NEUTROPHILS % 82.7 % (38.7-80.0); PLATELET COUNT 129 x10e3/uL (140-360); RED BLOOD COUNT 4.09 x10e6/uL (3.6-5.1)
[2021-10-08 06:02] LABS: ANION GAP 14.6 mmol/L (8-16); CALCIUM 8.9 mg/dL (8.4-10.2); CREATININE, SERUM 0.87 mg/dL (0.57-1.11); MAGNESIUM 2.3 MG/DL (1.3-2.1); POTASSIUM 3.6 mmol/L (3.5-5.1)
[2021-10-08] MEDS: FUROSEMIDE 40 MG TAB PO SCH (06:41)
[2021-10-08] MEDS: METOPROLOL TARTRATE 50 MG TAB PO SCH ×2 (08:04→17:36)
[2021-10-08] MEDS: RIVAROXABAN 15 MG TABLET PO SCH (08:04)
[2021-10-08] MEDS: CEFTRIAXONE 1 GM in SODIUM CHLORIDE 0.9% 50ML 50 ML IV SCH (08:04)
[2021-10-08] MEDS ORDERED: WATER STERILE 10 ML VIAL INJ PRN (12:30)
[2021-10-08] MEDS ORDERED: AMLODIPINE BESYLATE 10 MG TAB PO ONE (21:30)
[2021-10-08] MEDS ORDERED: HYDRALAZINE HCL 20 MG/ML VIAL IV PRN (21:30)
[2021-10-08] MEDS ORDERED: SODIUM CHLORIDE 0.9% 250ML 250 ML ONE (21:54)
[2021-10-08] MEDS: ACETAMINOPHEN 325 MG TAB PO PRN (22:12)
[2021-10-08] MEDS: DONEPEZIL HCL 5 MG TAB PO SCH (22:12)
[2021-10-09] VITALS (7 sets, daily range): BP systolic 131–158; BP diastolic 69–100
[2021-10-09] MEDS: GUAIFENESIN/DEXTROMETHORPHAN LIQD 5 ML UDC NG PRN (01:30)
[2021-10-09 04:58] LABS: BASOPHILS % 0.2 % (0.0-1.0); HEMATOCRIT 40.8 % (34.2-44.1); HEMOGLOBIN 13.2 g/dL (12.0-16.0); LYMPHOCYTES % 14.5 % (18.0-39.1); MEAN CORPUSCULAR HEMOGLOBIN 30.6 pg (28-32); MEAN CORPUSCULAR HGB CONC 32.4 g/dL (31-35); MEAN CORPUSCULAR VOLUME 94.7 fL (81-99); MONOCYTES # (AUTO) 0.4 (0.2-0.8); MONOCYTES % 5.4 % (4.4-11.3); NEUTROPHILS # (AUTO) 5.2 (2.1-6.9); NEUTROPHILS % 78.7 % (38.7-80.0); PLATELET COUNT 151 x10e3/uL (140-360); RED BLOOD COUNT 4.31 x10e6/uL (3.6-5.1); RED CELL DISTRIBUTION WIDTH 14.9 % (11.7-14.4)
[2021-10-09 05:30] LABS: ANION GAP 18.1 mmol/L (8-16); CREATININE, SERUM 0.91 mg/dL (0.57-1.11); POTASSIUM 3.1 mmol/L (3.5-5.1)
[2021-10-09 06:46] LABS: LYMPHOCYTES % (MANUAL) 9 % (19-48); MONOCYTES % (MANUAL) 4 % (3.4-9.0); MYELOCYTES % (MANUAL) 1 % (0-0); NEUTROPHILS % (MANUAL) 86 % (40-74); PLATELET ESTIMATE ADEQUATE; PLATELET MORPHOLOGY COMMENT NORMAL
[2021-10-09 06:47] LABS: RBC MORPHOLOGY COMMENT NORMAL
[2021-10-09] MEDS: ASPIRIN 81 MG CHEW TAB PO SCH (08:28)
[2021-10-09] MEDS: RIVAROXABAN 15 MG TABLET PO SCH (08:28)
[2021-10-09] MEDS: FUROSEMIDE 40 MG TAB PO SCH (08:28)
[2021-10-09] MEDS: METOPROLOL TARTRATE 50 MG TAB PO SCH (08:28)
[2021-10-09] MEDS ORDERED: AMLODIPINE BESYLATE 10 MG TAB PO SCH (09:00)
[2021-10-09] MEDS: CEFTRIAXONE 1 GM in SODIUM CHLORIDE 0.9% 50ML 50 ML IV SCH (09:00)
[2021-10-09] MEDS: DIGOXIN 0.125 MG TAB PO SCH (13:18)
[2021-10-09] MEDS ORDERED: POTASSIUM CHLORIDE 20 MEQ TAB CR PO ONE (14:45)
[2021-10-09] MEDS: DONEPEZIL HCL 5 MG TAB PO SCH (21:13)
[2021-10-10] VITALS (7 sets, daily range): BP systolic 128–161; BP diastolic 71–97
[2021-10-10 04:55] LABS: BASOPHILS % 0.4 % (0.0-1.0); HEMATOCRIT 41.7 % (34.2-44.1); HEMOGLOBIN 12.9 g/dL (12.0-16.0); LYMPHOCYTES % 12.8 % (18.0-39.1); MEAN CORPUSCULAR HEMOGLOBIN 29.9 pg (28-32); MEAN CORPUSCULAR HGB CONC 30.9 g/dL (31-35); MEAN CORPUSCULAR VOLUME 96.8 fL (81-99); MONOCYTES # (AUTO) 0.5 (0.2-0.8); NEUTROPHILS # (AUTO) 6.1 (2.1-6.9); NEUTROPHILS % 79.2 % (38.7-80.0); PLATELET COUNT 173 x10e3/uL (140-360); RED BLOOD COUNT 4.31 x10e6/uL (3.6-5.1); RED CELL DISTRIBUTION WIDTH 15.1 % (11.7-14.4)
[2021-10-10 05:17] LABS: ANION GAP 15.4 mmol/L (8-16); CALCIUM 8.6 mg/dL (8.4-10.2); CREATININE, SERUM 0.81 mg/dL (0.57-1.11); POTASSIUM 3.4 mmol/L (3.5-5.1)
[2021-10-10 07:11] LABS: BAND NEUTROPHILS % (MANUAL) 1 %; LYMPHOCYTES % (MANUAL) 6 % (19-48); METAMYELOCYTES % (MANUAL) 2 % (0-0); MONOCYTES % (MANUAL) 3 % (3.4-9.0); NEUTROPHILS % (MANUAL) 88 % (40-74); PLATELET ESTIMATE ADEQUATE; RBC MORPHOLOGY COMMENT NORMAL
[2021-10-10 07:12] LABS: PLATELET MORPHOLOGY COMMENT FEW LARGE
[2021-10-10] MEDS: ASPIRIN 81 MG CHEW TAB PO SCH (09:42)
[2021-10-10] MEDS: LOSARTAN POTASSIUM 25 MG TAB PO SCH (09:43)
[2021-10-10] MEDS: FUROSEMIDE 40 MG TAB PO SCH (09:43)
[2021-10-10] MEDS: METOPROLOL SUCCINATE 25 MG TAB XL PO SCH (09:43)
[2021-10-10] MEDS: RIVAROXABAN 15 MG TABLET PO SCH (09:44)
[2021-10-10] MEDS: CEFTRIAXONE 1 GM in SODIUM CHLORIDE 0.9% 50ML 50 ML IV SCH (09:53)
[2021-10-10] MEDS ORDERED: POTASSIUM CHLORIDE 20 MEQ TAB CR PO NR (17:00)
[2021-10-10] MEDS: DONEPEZIL HCL 5 MG TAB PO SCH (20:27)
[2021-10-10] MEDS: GUAIFENESIN/DEXTROMETHORPHAN LIQD 5 ML UDC NG PRN (20:34)
[2021-10-11] VITALS (7 sets, daily range): BP systolic 141–163; BP diastolic 74–98
[2021-10-11] MEDS ORDERED: POTASSIUM CHLORIDE 20 MEQ TAB CR PO STA (08:34)
[2021-10-11] MEDS: CEFTRIAXONE 1 GM in SODIUM CHLORIDE 0.9% 50ML 50 ML IV SCH (09:30)
[2021-10-11] MEDS: ASPIRIN 81 MG CHEW TAB PO SCH (09:34)
[2021-10-11] MEDS: FUROSEMIDE 40 MG TAB PO SCH (09:34)
[2021-10-11] MEDS: LOSARTAN POTASSIUM 25 MG TAB PO SCH (09:34)
[2021-10-11] MEDS: METOPROLOL SUCCINATE 25 MG TAB XL PO SCH (09:35)
[2021-10-11] MEDS: DIGOXIN 0.125 MG TAB PO SCH (15:20)
[2021-10-11] MEDS: DONEPEZIL HCL 5 MG TAB PO SCH (20:08)
[2021-10-11] MEDS: GUAIFENESIN/DEXTROMETHORPHAN LIQD 5 ML UDC NG PRN (20:21)
[2021-10-12] VITALS (8 sets, daily range): BP systolic 143–168; BP diastolic 73–106
[2021-10-12] MEDS: GUAIFENESIN/DEXTROMETHORPHAN LIQD 5 ML UDC NG PRN (01:54)
[2021-10-12 06:11] LABS: BASOPHILS % 0.6 % (0.0-1.0); EOSINOPHILS # (AUTO) 0.1 (0.0-0.4); EOSINOPHILS % 1.1 % (0.0-6.0); HEMATOCRIT 40.2 % (34.2-44.1); HEMOGLOBIN 12.2 g/dL (12.0-16.0); LYMPHOCYTES # (AUTO) 0.8 (1.0-3.2); LYMPHOCYTES % 11.8 % (18.0-39.1); MEAN CORPUSCULAR HGB CONC 30.3 g/dL (31-35); MEAN CORPUSCULAR VOLUME 98.8 fL (81-99); MONOCYTES # (AUTO) 0.4 (0.2-0.8); MONOCYTES % 6.2 % (4.4-11.3); NEUTROPHILS # (AUTO) 5.1 (2.1-6.9); PLATELET COUNT 245 x10e3/uL (140-360); RED BLOOD COUNT 4.07 x10e6/uL (3.6-5.1); RED CELL DISTRIBUTION WIDTH 15.2 % (11.7-14.4)
[2021-10-12 06:36] LABS: ALBUMIN 2.9 g/dL (3.5-5.0); ALBUMIN/GLOBULIN RATIO 0.8 (0.8-2.0); CALCIUM 8.9 mg/dL (8.4-10.2); CREATININE, SERUM 0.73 mg/dL (0.57-1.11); MAGNESIUM 2.2 MG/DL (1.3-2.1)
[2021-10-12] MEDS: CEFTRIAXONE 1 GM in SODIUM CHLORIDE 0.9% 50ML 50 ML IV SCH (08:54)
[2021-10-12] MEDS: ASPIRIN 81 MG CHEW TAB PO SCH (08:54)
[2021-10-12] MEDS: RIVAROXABAN 15 MG TABLET PO SCH (08:55)
[2021-10-12] MEDS: METOPROLOL SUCCINATE 25 MG TAB XL PO SCH (08:55)
[2021-10-12] MEDS: FUROSEMIDE 40 MG TAB PO SCH (08:55)
[2021-10-12] MEDS: LOSARTAN POTASSIUM 25 MG TAB PO SCH ×2 (08:55→17:00)
[2021-10-12] MEDS ORDERED: AZITHROMYCIN 250 MG TAB PO SCH (21:00)
[2021-10-12] MEDS: DONEPEZIL HCL 5 MG TAB PO SCH (21:03)
[2021-10-13] VITALS: BP 136/89
[2021-10-13 04:00] VITALS: BP 164/77
[2021-10-13 05:05] LABS: BASOPHILS % 0.5 % (0.0-1.0); EOSINOPHILS # (AUTO) 0.1 (0.0-0.4); EOSINOPHILS % 0.9 % (0.0-6.0); HEMOGLOBIN 12.5 g/dL (12.0-16.0); LYMPHOCYTES # (AUTO) 0.8 (1.0-3.2); LYMPHOCYTES % 11.5 % (18.0-39.1); MEAN CORPUSCULAR HEMOGLOBIN 29.9 pg (28-32); MEAN CORPUSCULAR HGB CONC 32.1 g/dL (31-35); MEAN CORPUSCULAR VOLUME 93.3 fL (81-99); MONOCYTES # (AUTO) 0.5 (0.2-0.8); MONOCYTES % 6.8 % (4.4-11.3); NEUTROPHILS # (AUTO) 5.1 (2.1-6.9); NEUTROPHILS % 77.7 % (38.7-80.0); PLATELET COUNT 305 x10e3/uL (140-360); RED BLOOD COUNT 4.18 x10e6/uL (3.6-5.1); RED CELL DISTRIBUTION WIDTH 14.9 % (11.7-14.4)
[2021-10-13 05:28] LABS: ALBUMIN/GLOBULIN RATIO 0.8 (0.8-2.0); ANION GAP 15.2 mmol/L (8-16); CALCIUM 8.6 mg/dL (8.4-10.2); CREATININE, SERUM 0.75 mg/dL (0.57-1.11); MAGNESIUM 2.1 MG/DL (1.3-2.1); PHOSPHORUS 2.6 MG/DL (2.3-4.7); POTASSIUM 3.2 mmol/L (3.5-5.1)
[2021-10-13 08:18] VITALS: BP 165/85
[2021-10-13] MEDS: FUROSEMIDE 40 MG TAB PO SCH (08:52)
[2021-10-13] MEDS: ASPIRIN 81 MG CHEW TAB PO SCH (08:52)
[2021-10-13] MEDS: LOSARTAN POTASSIUM 25 MG TAB PO SCH (08:52)
[2021-10-13] MEDS: RIVAROXABAN 15 MG TABLET PO SCH (08:53)
[2021-10-13] MEDS: METOPROLOL SUCCINATE 25 MG TAB XL PO SCH (08:53)
[2021-10-13] MEDS: CEFTRIAXONE 1 GM in SODIUM CHLORIDE 0.9% 50ML 50 ML IV SCH (09:26)
[2021-10-13 09:35] VITALS: BP 165/85
[2021-10-13 12:21] VITALS: BP 162/98
[2021-10-13] MEDS: DIGOXIN 0.125 MG TAB PO SCH (14:00)
[2021-10-13] MEDS ORDERED: XARELTO15 MG PO (14:58)
[2021-10-13] MEDS ORDERED: COZAAR25 MG PO (14:58)
[2021-10-13] MEDS ORDERED: TOPROL XL25 MG PO (14:58)
[2021-10-13] MEDS ORDERED: ASPIRIN CHEW81 MG PO (15:06)
[2021-10-13] MEDS ORDERED: POTASSIUM CHLORIDE 20 MEQ TAB CR PO ONE (15:30)
[2021-10-13] MEDS ORDERED: METOPROLOL SUCCINATE 25 MG TAB XL PO SCH (17:00)
[2021-10-13] MEDS ORDERED: ATORVASTATIN 20 MG TAB PO SCH (21:00)
== END 2021-10-13 16:26 | disposition home health service (06) | DRG 871 ==
LOC: ER 18:30 → ERHOLD 21:48 → MED/SURG2 22:16
PROVIDERS: ADMIT Internal Medicine; ATTEND Internal Medicine
DX: A41.9 Sepsis, unspecified organism (principal); J18.9 Pneumonia, unspecified organism; I50.23 Acute on chronic systolic (congestive) heart failure; I21.A1 Myocardial infarction type 2; I48.20 Chronic atrial fibrillation, unspecified; N17.9 Acute kidney failure, unspecified; R65.20 Severe sepsis without septic shock; R09.02 Hypoxemia; I25.10 Atherosclerotic heart disease of native coronary artery without angina pectoris; Z85.038 Personal history of other malignant neoplasm of large intestine; Z85.3 Personal history of malignant neoplasm of breast; Z88.1 Allergy status to other antibiotic agents; Z88.0 Allergy status to penicillin; Z82.49 Family history of ischemic heart disease and other diseases of the circulatory system; R77.8 Other specified abnormalities of plasma proteins; F03.90 Unspecified dementia, unspecified severity, without behavioral disturbance, psychotic disturbance, mood disturbance, and anxiety; E87.6 Hypokalemia; J44.9 Chronic obstructive pulmonary disease, unspecified; I11.0 Hypertensive heart disease with heart failure; E83.41 Hypermagnesemia; E88.09 Other disorders of plasma-protein metabolism, not elsewhere classified; R74.01 Elevation of levels of liver transaminase levels; D69.6 Thrombocytopenia, unspecified
CPT/HCPCS: 36415; 71045; 71260; 80048; 80053; 80061; 81001; 82550; 82553; 83605; 83735; 83880; 84100; 84484; 85025; 87040; 87400; 93005; 93306; 94799; 99284; J0360; J0456; J0696; J7030; J7050; Q9967; U0002

== ENCOUNTER 2022-07-29 18:16 | Inpatient (IN) | payer MEDICARE ==
[~2022-07-29] VITALS: Ht 165.1 cm; Wt 69.1 kg
[~2022-07-29 18:16] MED LIST changes: +ASPIRIN CHEW81 MG PO; +COZAAR25 MG PO; +TOPROL XL25 MG PO; +TYLENOL325 MG PO; +XARELTO15 MG PO
[2022-07-29] MEDS ORDERED: FUROSEMIDE INJ 10 MG/ML 4 ML VIAL IV ONE (18:45)
[2022-07-29 18:48] LABS: BASOPHILS % 0.4 % (0.0-1.0); HEMATOCRIT 45.3 % (34.2-44.1); HEMOGLOBIN 13.6 g/dL (12.0-16.0); LYMPHOCYTES # (AUTO) 0.3 (1.0-3.2); LYMPHOCYTES % 3.3 % (18.0-39.1); MEAN CORPUSCULAR HEMOGLOBIN 27.7 pg (28-32); MEAN CORPUSCULAR VOLUME 92.3 fL (81-99); MONOCYTES # (AUTO) 0.6 (0.2-0.8); MONOCYTES % 7.4 % (4.4-11.3); NEUTROPHILS # (AUTO) 6.9 (2.1-6.9); NEUTROPHILS % 88.6 % (38.7-80.0); PLATELET COUNT 201 x10e3/uL (140-360); RED BLOOD COUNT 4.91 x10e6/uL (3.6-5.1); RED CELL DISTRIBUTION WIDTH 16.5 % (11.7-14.4)
[2022-07-29 19:03] LABS: ANION GAP 18.3 mmol/L (8-16); CALCIUM 9.2 mg/dL (8.4-10.2); CREATININE, SERUM 0.85 mg/dL (0.57-1.11); POTASSIUM 3.3 mmol/L (3.5-5.1)
[2022-07-29 19:05] LABS: CLARITY,URINE SL CLOUDY (CLEAR); COLOR,URINE YELLOW (YELLOW); LEUKOCYTE ESTERASE ,URINE NEGATIVE (NEGATIVE); NITRITE,URINE NEGATIVE (NEGATIVE); PROTEIN,URINE DIPSTICK 2+ (NEGATIVE)
[2022-07-29 19:06] LABS: KETONES,URINE 1+ (NEGATIVE); URINE UROBILINOGEN 0.2 mg/dL (0.2 - 1)
[2022-07-29 19:10] LABS: CREATINE KINASE MB 4.2 ng/mL (0-5.0)
[2022-07-29 19:25] LABS: WBC,URINE (MAN) 0-5 /HPF (0-5)
[2022-07-29 19:26] LABS: BACTERIA,URINE RARE /HPF; EPITHELIAL CELLS,URINE FEW /LPF
[2022-07-29] MEDS ORDERED: AMIODARONE HCL 150 MG/100 ML BAG IV ONE (20:15)
[2022-07-29] MEDS ORDERED: AMIODARONE 900MG 900 MG in Premix Bag 1 BAG IV PRN (20:15)
[2022-07-29] MEDS ORDERED: ONDANSETRON HCL INJ 2MG/ML 2ML 2 MG/ML VIAL IV PRN ×2 (20:15→21:00)
[2022-07-29] MEDS ORDERED: AMIODARONE HCL 100 ML IV ONE (20:37)
[2022-07-29] MEDS ORDERED: AMIODARONE 900MG 500 ML IV ONE (20:37)
[2022-07-29] MEDS ORDERED: POTASSIUM CHLORIDE 20 MEQ TAB CR PO STA (20:54)
[2022-07-29] MEDS ORDERED: ACETAMINOPHEN 325 MG/10 ML UDC PO PRN (21:00)
[2022-07-29] MEDS: FUROSEMIDE INJ 10 MG/ML 4 ML VIAL IV SCH (21:00)
[2022-07-29] MEDS ORDERED: RIVAROXABAN 15 MG TABLET PO ONE (21:30)
[2022-07-29 22:00] VITALS: BP 160/100
[2022-07-29] MEDS: DONEPEZIL HCL 5 MG TAB PO SCH (22:28)
[2022-07-29 23:00] VITALS: BP 126/81
[2022-07-29 23:15] VITALS: BP 165/112
[2022-07-29 23:27] VITALS: BP 153/109
[2022-07-29 23:31] VITALS: BP 139/79
[2022-07-30] VITALS (63 sets, daily range): BP systolic 105–218; BP diastolic 69–192
[2022-07-30] MEDS: LABETALOL HCL 5 MG/ML 20ML VIAL IV PRN (05:09)
[2022-07-30 07:45] LABS: BASOPHILS % 0.6 % (0.0-1.0); EOSINOPHILS % 0.3 % (0.0-6.0); HEMATOCRIT 40.8 % (34.2-44.1); HEMOGLOBIN 11.6 g/dL (12.0-16.0); LYMPHOCYTES # (AUTO) 0.3 (1.0-3.2); LYMPHOCYTES % 4.7 % (18.0-39.1); MEAN CORPUSCULAR HEMOGLOBIN 28.2 pg (28-32); MEAN CORPUSCULAR HGB CONC 28.4 g/dL (31-35); MONOCYTES # (AUTO) 0.7 (0.2-0.8); MONOCYTES % 10.2 % (4.4-11.3); NEUTROPHILS # (AUTO) 5.5 (2.1-6.9); PLATELET COUNT 154 x10e3/uL (140-360); RED BLOOD COUNT 4.12 x10e6/uL (3.6-5.1)
[2022-07-30 08:20] LABS: CHOL/HDL RATIO 2.6 (3.0-3.6)
[2022-07-30 08:22] LABS: ALBUMIN 3.1 g/dL (3.5-5.0); ALBUMIN/GLOBULIN RATIO 0.9 (0.8-2.0); ANION GAP 14.3 mmol/L (8-16); CALCIUM 8.3 mg/dL (8.4-10.2); CREATININE, SERUM 0.85 mg/dL (0.57-1.11); POTASSIUM 3.3 mmol/L (3.5-5.1)
[2022-07-30 08:31] LABS: CREATINE KINASE MB 2.9 ng/mL (0-5.0)
[2022-07-30] MEDS: FUROSEMIDE INJ 10 MG/ML 4 ML VIAL IV SCH (08:43)
[2022-07-30] MEDS: POTASSIUM CHLORIDE 20 MEQ TAB CR PO SCH (08:44)
[2022-07-30] MEDS: METOPROLOL TARTRATE 25 MG TAB PO SCH ×2 (08:45→16:46)
[2022-07-30] MEDS ORDERED: METOPROLOL TARTRATE 25 MG TAB PO SCH (09:00)
[2022-07-30] MEDS ORDERED: RIVAROXABAN 15 MG TABLET PO SCH (09:00)
[2022-07-30] MEDS ORDERED: POTASSIUM CHLORIDE 20 MEQ TAB CR PO ONE (14:45)
[2022-07-30] MEDS: AMIODARONE HCL 200 MG TAB PO SCH (17:29)
[2022-07-30] MEDS: RIVAROXABAN 15 MG TABLET PO SCH (20:52)
[2022-07-30] MEDS: DONEPEZIL HCL 5 MG TAB PO SCH (20:52)
[2022-07-31] VITALS (43 sets, daily range): BP systolic 83–196; BP diastolic 55–111
[2022-07-31] MEDS: AMIODARONE HCL 200 MG TAB PO SCH (08:17)
[2022-07-31] MEDS: METOPROLOL TARTRATE 25 MG TAB PO SCH (08:17)
[2022-07-31] MEDS: POTASSIUM CHLORIDE 20 MEQ TAB CR PO SCH (08:17)
[2022-07-31 08:38] LABS: BASOPHILS % 0.5 % (0.0-1.0); HEMATOCRIT 40.3 % (34.2-44.1); HEMOGLOBIN 12.3 g/dL (12.0-16.0); LYMPHOCYTES # (AUTO) 0.3 (1.0-3.2); LYMPHOCYTES % 4.9 % (18.0-39.1); MEAN CORPUSCULAR HEMOGLOBIN 27.9 pg (28-32); MEAN CORPUSCULAR HGB CONC 30.5 g/dL (31-35); MEAN CORPUSCULAR VOLUME 91.4 fL (81-99); MONOCYTES # (AUTO) 0.8 (0.2-0.8); MONOCYTES % 13.7 % (4.4-11.3); NEUTROPHILS # (AUTO) 4.4 (2.1-6.9); NEUTROPHILS % 80.7 % (38.7-80.0); PLATELET COUNT 198 x10e3/uL (140-360); RED BLOOD COUNT 4.41 x10e6/uL (3.6-5.1); RED CELL DISTRIBUTION WIDTH 16.3 % (11.7-14.4)
[2022-07-31 08:58] LABS: ALBUMIN 3.3 g/dL (3.5-5.0); ALBUMIN/GLOBULIN RATIO 0.9 (0.8-2.0); ANION GAP 21.4 mmol/L (8-16); CALCIUM 8.9 mg/dL (8.4-10.2); CREATININE, SERUM 0.97 mg/dL (0.57-1.11); POTASSIUM 4.4 mmol/L (3.5-5.1)
[2022-07-31] MEDS ORDERED: FUROSEMIDE INJ 10 MG/ML 4 ML VIAL IV SCH (09:00)
[2022-07-31] MEDS: POTASSIUM CHLORIDE 10MEQ EA PO SCH (10:30)
[2022-07-31] MEDS ORDERED: SODIUM CHLORIDE 0.9% IV PRN (14:15)
[2022-07-31] MEDS ORDERED: METOPROLOL TARTRATE INJ 1 MG/ML VIAL IV PRN (14:15)
[2022-07-31] MEDS: DONEPEZIL HCL 5 MG TAB PO SCH (21:00)
[2022-08-01] VITALS (33 sets, daily range): BP systolic 114–174; BP diastolic 74–131
[2022-08-01 04:59] LABS: BASOPHILS % 0.2 % (0.0-1.0); HEMATOCRIT 41.5 % (34.2-44.1); HEMOGLOBIN 12.3 g/dL (12.0-16.0); LYMPHOCYTES # (AUTO) 0.4 (1.0-3.2); LYMPHOCYTES % 5.9 % (18.0-39.1); MEAN CORPUSCULAR HEMOGLOBIN 27.8 pg (28-32); MEAN CORPUSCULAR HGB CONC 29.6 g/dL (31-35); MEAN CORPUSCULAR VOLUME 93.9 fL (81-99); MONOCYTES # (AUTO) 0.8 (0.2-0.8); MONOCYTES % 12.2 % (4.4-11.3); NEUTROPHILS # (AUTO) 5.3 (2.1-6.9); NEUTROPHILS % 81.2 % (38.7-80.0); PLATELET COUNT 204 x10e3/uL (140-360); RED BLOOD COUNT 4.42 x10e6/uL (3.6-5.1); RED CELL DISTRIBUTION WIDTH 16.4 % (11.7-14.4)
[2022-08-01 05:17] LABS: ALBUMIN/GLOBULIN RATIO 0.8 (0.8-2.0); ANION GAP 20.5 mmol/L (8-16); CREATININE, SERUM 1.23 mg/dL (0.57-1.11); POTASSIUM 4.5 mmol/L (3.5-5.1)
[2022-08-01] MEDS ORDERED: FUROSEMIDE INJ 10 MG/ML 4 ML VIAL IV SCH (09:00)
[2022-08-01] MEDS: POTASSIUM CHLORIDE 10MEQ EA PO SCH (09:00)
[2022-08-01] MEDS ORDERED: DEXTROSE 5%/0.9% SOD CHL 1,000 ML IV SCH (09:15)
[2022-08-01] MEDS ORDERED: DEXTROSE 5% 1,000 ML IV ONE (09:45)
[2022-08-01] MEDS: ENOXAPARIN INJ 80 MG/0.8 ML SYR SC SCH (16:40)
[2022-08-01] MEDS: DONEPEZIL HCL 5 MG TAB PO SCH (19:57)
[2022-08-02] VITALS (60 sets, daily range): BP systolic 110–210; BP diastolic 53–172
[2022-08-02] MEDS: ENOXAPARIN INJ 80 MG/0.8 ML SYR SC SCH (05:28)
[2022-08-02 06:21] LABS: BASOPHILS % 0.5 % (0.0-1.0); EOSINOPHILS % 0.2 % (0.0-6.0); HEMATOCRIT 38.6 % (34.2-44.1); LYMPHOCYTES # (AUTO) 0.4 (1.0-3.2); LYMPHOCYTES % 6.1 % (18.0-39.1); MEAN CORPUSCULAR HEMOGLOBIN 28.2 pg (28-32); MEAN CORPUSCULAR HGB CONC 31.1 g/dL (31-35); MEAN CORPUSCULAR VOLUME 90.6 fL (81-99); MONOCYTES # (AUTO) 0.6 (0.2-0.8); MONOCYTES % 10.3 % (4.4-11.3); NEUTROPHILS # (AUTO) 5.1 (2.1-6.9); NEUTROPHILS % 81.9 % (38.7-80.0); PLATELET COUNT 210 x10e3/uL (140-360); RED BLOOD COUNT 4.26 x10e6/uL (3.6-5.1); RED CELL DISTRIBUTION WIDTH 16.4 % (11.7-14.4)
[2022-08-02 08:20] LABS: ANION GAP 15.1 mmol/L (8-16); CALCIUM 8.9 mg/dL (8.4-10.2); CREATININE, SERUM 1.08 mg/dL (0.57-1.11); MAGNESIUM 2.5 MG/DL (1.3-2.1); POTASSIUM 4.1 mmol/L (3.5-5.1)
[2022-08-02] MEDS: POTASSIUM CHLORIDE 10MEQ EA PO SCH (08:32)
[2022-08-02] MEDS: LABETALOL HCL 5 MG/ML 20ML VIAL IV PRN ×3 (09:12→17:42)
[2022-08-02] MEDS ORDERED: DIGOXIN INJ 0.25 MG/ML 2 ML AMP IV ONE (13:00)
[2022-08-02] MEDS: LOSARTAN POTASSIUM 100 MG TAB PO SCH (17:02)
[2022-08-02] MEDS ORDERED: CLONIDINE HCL 0.2 MG TAB PO PRN (19:15)
[2022-08-02] MEDS: RIVAROXABAN 15 MG TABLET PO SCH (21:52)
[2022-08-02] MEDS: DONEPEZIL HCL 5 MG TAB PO SCH (21:52)
[2022-08-03] VITALS (17 sets, daily range): BP systolic 119–194; BP diastolic 52–164
[2022-08-03] MEDS: LABETALOL HCL 5 MG/ML 20ML VIAL IV PRN ×2 (02:41→09:06)
[2022-08-03] MEDS ORDERED: DIGOXIN INJ 0.25 MG/ML 2 ML AMP IV SCH (06:00)
[2022-08-03] MEDS: BALSAM PERU/CASTOR OIL 60 GM OINT...G. TP SCH (08:14)
[2022-08-03] MEDS ORDERED: HYDRALAZINE HCL 20 MG/ML VIAL IV PRN (13:30)
[2022-08-03] MEDS: LOSARTAN POTASSIUM 100 MG TAB PO SCH (17:02)
[2022-08-03] MEDS: DONEPEZIL HCL 5 MG TAB PO SCH (20:34)
[2022-08-03] MEDS: RIVAROXABAN 15 MG TABLET PO SCH (20:34)
[2022-08-04] VITALS (7 sets, daily range): BP systolic 91–158; BP diastolic 51–85
[2022-08-04] MEDS ORDERED: SODIUM CHLORIDE 0.9% 250ML 250 ML ONE (09:32)
[2022-08-04] MEDS: BALSAM PERU/CASTOR OIL 60 GM OINT...G. TP SCH (16:00)
[2022-08-04] MEDS: LOSARTAN POTASSIUM 100 MG TAB PO SCH (17:00)
[2022-08-04] MEDS: RIVAROXABAN 15 MG TABLET PO SCH (20:44)
[2022-08-04] MEDS: DONEPEZIL HCL 5 MG TAB PO SCH (20:44)
[2022-08-05 00:26] VITALS: BP 70/39
== END 2022-08-05 00:20 | disposition expired | DRG 291 ==
LOC: ER 18:23 → ERHOLD 20:22 → ICU 22:11 → MED/SURG3 08-03 14:12
PROVIDERS: ADMIT Internal Medicine; ATTEND Internal Medicine
DX: I11.0 Hypertensive heart disease with heart failure (principal); G93.41 Metabolic encephalopathy; I50.23 Acute on chronic systolic (congestive) heart failure; J69.0 Pneumonitis due to inhalation of food and vomit; J96.21 Acute and chronic respiratory failure with hypoxia; I48.91 Unspecified atrial fibrillation; Z79.01 Long term (current) use of anticoagulants; I25.10 Atherosclerotic heart disease of native coronary artery without angina pectoris; Z85.038 Personal history of other malignant neoplasm of large intestine; Z85.3 Personal history of malignant neoplasm of breast; Z88.1 Allergy status to other antibiotic agents; Z88.0 Allergy status to penicillin; E87.6 Hypokalemia; F03.90 Unspecified dementia, unspecified severity, without behavioral disturbance, psychotic disturbance, mood disturbance, and anxiety; Z20.822 Contact with and (suspected) exposure to COVID-19; E78.5 Hyperlipidemia, unspecified; Z95.818 Presence of other cardiac implants and grafts
CPT/HCPCS: 36415; 51700; 71045; 74230; 80048; 80053; 80061; 81001; 82550; 82553; 83605; 83735; 83880; 84484; 85025; 87040; 93005; 94799; 99251; 99285; J0456; J0696; J1160; J1650; J1940; J7050; J7070